=== PATIENT | male | born 1960 | race Caucasian/White ===

== ENCOUNTER → 2016-12-18 | Outpatient (CLI) | payer BC ==
--- NOTE | 2016-12-20 19:57 | SLEEPCENT ---
DATE OF PROCEDURE: 12/18/2016 REFERRING PHYSICIAN: ANNA Rhoades INTERPRETATION: Nocturnal polysomnography was performed for the determination of pressure therapy in this person with presumed mild obstructive sleep apnea with an respiratory event index (YENIFER) of 14.1 with oxygen saturation soren at 79% and average saturation of 89%. There were associated symptoms of excessive daytime sleepiness, insomnia, snoring, observed apnea, and nonrestorative sleep. A total of 6 hours and 47 minutes of data was reviewed with 271 minutes of sleep identified. Sleep latency was 12 minutes. Rapid eye movement (REM) latency was 240 minutes. No slow wave sleep was identified. Sleep efficiency was reduced at 67.8%. EKG showed normal sinus rhythm with an average heart rate of 65 beats per minute. Speeding and slowing was noted surrounding some respiratory events. No epileptiform discharge observed. The patient had been fit with a Respironics ComfortGel nasal petite mask, 4 cm of water then applied to the circuit and the lights were dimmed. Continuous positive airway pressure (CPAP) begun at 4 cm of water pressure, taken to a high of 6. However, he appeared to do best on a pressure of 5. On that pressure, his apnea-hypopnea index (AHI) was 0 and his YENIFER was 2.3. Oxygen saturation soren appeared to be in the 90th percentile. Periodic limb movement index was 14. Supine REM sleep was seen on this pressure with a reasonably good waveform. IMPRESSION: 1. Obstructive sleep apnea, mild, reasonably palliated on CPAP of 5 cm of water pressure. 2. Periodic limb movement, mild. RECOMMENDATIONS: Recommend continuation of CPAP therapy at the above pressure via a petite Respironics ComfortGel nasal mask, the mask of his preference. Clinical correlation will be necessary to ensure eradication of symptoms. [facility]
== END ==
LOC: M SLEEP 19:45
PROVIDERS: ATTEND Internal Medicine Pulmonary Disease
DX: G47.33 Obstructive sleep apnea (adult) (pediatric) (principal); G47.61 Periodic limb movement disorder

== ENCOUNTER 2017-11-16 14:27 | Emergency (ER) | payer BC ==
[2017-11-20 00:06] LABS: Lyme Disease IgG Ab 18 kDa Ban Absent (.); Lyme Disease IgG Ab 23 kDa Ban Absent (.); Lyme Disease IgG Ab 28 kDa Ban Absent (.); Lyme Disease IgG Ab 30 kDa Ban Absent (.); Lyme Disease IgG Ab 39 kDa Ban Absent (.); Lyme Disease IgG Ab 41 kDa Ban Absent (.); Lyme Disease IgG Ab 45 kDa Ban Absent (.); Lyme Disease IgG Ab 58 kDa Ban Absent (.); Lyme Disease IgG Ab 66 kDa Ban Present (.); Lyme Disease IgG Ab 93 kDa Ban Absent (.); Lyme Disease IgG West Blot Int Negative (.); Lyme Disease IgG/IgM Antibodie 1.17 ISR (0.00-0.90); Lyme Disease IgM Ab 23 kDa Ban Absent (.); Lyme Disease IgM Ab 39 kDa Ban Present (.); Lyme Disease IgM Ab 41 kDa Ban Absent (.); Lyme Disease IgM Ab Quantitati 4.05 index (0.00-0.79); Lyme Disease IgM West Blot Int Negative (.)
== END 2017-11-16 18:02 | disposition home or self-care (01) ==
LOC: M ED 14:27
DX: J44.1 Chronic obstructive pulmonary disease with (acute) exacerbation (principal); R53.81 Other malaise; K21.9 Gastro-esophageal reflux disease without esophagitis; F41.9 Anxiety disorder, unspecified; Z79.899 Other long term (current) drug therapy; F17.210 Nicotine dependence, cigarettes, uncomplicated
CPT/HCPCS: 71020

== ENCOUNTER → 2018-01-02 | Outpatient (CLI) | payer BC | LOC: M RAD 10:42 | DX: J44.9 Chronic obstructive pulmonary disease, unspecified (principal); Z87.891 Personal history of nicotine dependence | CPT/HCPCS: G0297 ==

== ENCOUNTER → 2020-03-17 | Outpatient (CLI) | payer BC ==
[~2020-03-17] MED LIST: ALBU83IN; IPRA2IN; LEVA45AE; MULTCAP11 PO; NYST50SS; Nasocort; PRED20TA PO; RANI-397 PO; SIME80TA5 PO; SPIR12.9; SYMBICORT; TAMSULOSIN; VITACAP8 PO; ZYRTEC D
--- NOTE | 2020-03-17 10:44 | REP ---
CT CHEST WITHOUT CONTRAST: LOW-DOSE CANCER SCREENING. HISTORY: Nicotine dependence. Comparison CT studies of the chest are reviewed from January 02, 2018, September 24, 2014, and December 29, 2009. 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 Axial CT images again show severe emphysematous hyperinflation and oligemia in the upper lobes and to a slightly lesser extent, in the lower lobes. This is unchanged in appearance morphologically. No pulmonary mass lesion is appreciated. No significant pulmonary nodule is seen. No endobronchial lesion is appreciated. No pleural or pericardial effusion is seen. There is a chronic area of fibrosis and discoid atelectasis medially in the right middle lobe, unchanged. IMPRESSION: Lung-RADS category 2 findings. Repeat screening chest CT study suggested in 1 year. Electronically Signed by Tru Rico MD 03/17/2020 01:36 P
== END ==
LOC: M RAD 08:39
PROVIDERS: ATTEND Internal Medicine Pulmonary Disease
DX: Z12.2 Encounter for screening for malignant neoplasm of respiratory organs (principal); Z87.891 Personal history of nicotine dependence; J84.10 Pulmonary fibrosis, unspecified; J98.11 Atelectasis

== ENCOUNTER → 2020-10-30 | Outpatient (CLI) | payer SELFPAY ==
[~2020-10-30] MED LIST changes: +SIME80TA12 PO; -SIME80TA5 PO
== END ==
LOC: M LABSMTC 12:48
PROVIDERS: ATTEND Pediatrics
DX: Z20.828 Contact with and (suspected) exposure to other viral communicable diseases (principal)

== ENCOUNTER → 2020-11-12 | Outpatient (REF) | payer BC ==
[~2020-11-12] MED LIST changes: +CARA1TAB6 PO; +CHOL400T PO; +ECOT81TA5 PO; +PANT40TA29 PO; +TAMS1CAP17 PO
[2020-11-12 13:45] LABS: APPEARANCE, URINE CLEAR (CLEAR); BACTERIA, URINE AUTO NEGATIVE (NEGATIVE); BILIRUBIN, URINE AUTO NEGATIVE (NEGATIVE); BLOOD, URINE BLOOD NEGATIVE (NEGATIVE); COLOR, URINE YELLOW (YELLOW); GLUCOSE, URINE (UA) AUTO NEGATIVE (NEGATIVE); KETONE, URINE AUTO NEGATIVE (NEGATIVE); LEUKOCYTE ESTERASE, URINE AUTO NEGATIVE (NEGATIVE); NITRITE, URINE AUTO NEGATIVE (NEGATIVE); PROTEIN, URINE AUTO NEGATIVE (NEGATIVE); RBC, URINE AUTO 0 /HPF (0-3); SPECIFIC GRAVITY URINE AUTO 1.005 (1.002-1.035); SQUAMOUS EPITHELIAL CELL UR AU 0 /HPF (0-6); UROBILINOGEN, URINE AUTO 0.2 mg/dL (0.0-2.0); WBC, URINE AUTO 0 /HPF (0-3)
== END ==
LOC: M SMT 13:31
PROVIDERS: ATTEND Nurse Practitioner Family
DX: N40.1 Benign prostatic hyperplasia with lower urinary tract symptoms (principal)

== ENCOUNTER 2020-11-18 17:54 | Emergency (ER) | payer BC ==
[~2020-11-18] VITALS: Ht 162.6 cm; Wt 51.9 kg
[~2020-11-18 17:54] MED LIST changes: -CARA1TAB6 PO; -CHOL400T PO; -ECOT81TA5 PO; -PANT40TA29 PO; -TAMS1CAP17 PO
[2020-11-18] MEDS ORDERED: CHOL400T PO (18:08)
[2020-11-18] MEDS ORDERED: PANT40TA29 PO (18:08)
[2020-11-18] MEDS ORDERED: ECOT81TA5 PO (18:08)
[2020-11-18] MEDS ORDERED: TAMS1CAP17 PO (18:08)
[2020-11-18 18:51] LABS: BASO # 0.1 10^3/uL (0.0-0.2); BASO % 0.8 % (0.0-1.0); EOS % 0.1 % (0.0-3.0); HEMOGLOBIN 15.5 g/dl (13.5-17.5); LYMPH # 1.5 10^3/uL (1.5-5.0); LYMPH % 19.1 % (24.0-44.0); MEAN CORPUSCULAR HEMOGLOBIN 32.4 pg (27.0-33.0); MEAN CORPUSCULAR HGB CONC 32.3 g/dl (32.0-36.5); MEAN CORPUSCULAR VOLUME 100.2 fl (80.0-96.0); MONO # 0.8 10^3/uL (0.0-0.8); MONO % 10.2 % (0.0-5.0); NEUTROPHILS # 5.4 10^3/uL (1.5-8.5); NEUTROPHILS % 69.4 % (36.0-66.0); PLATELET COUNT, AUTOMATED 330 10^3/uL (150-450); RED BLOOD COUNT 4.79 10^6/uL (4.30-6.10); WHITE BLOOD COUNT 7.8 10^3/uL (4.0-10.0)
[2020-11-18 19:24] LABS: ALBUMIN 3.7 GM/DL (3.2-5.2); ALT/SGPT 22 U/L (12-78); BILIRUBIN,DIRECT 0.2 MG/DL (0.0-0.2); BILIRUBIN,TOTAL 0.5 MG/DL (0.2-1.0); BLOOD UREA NITROGEN 8 MG/DL (7-18); CALCIUM LEVEL 9.3 MG/DL (8.5-10.1); CARBON DIOXIDE LEVEL 33 MEQ/L (21-32); CHLORIDE LEVEL 102 MEQ/L (98-107); CK-MB VALUE MASS 2.5 NG/ML (<3.6); CPK CREATINE PHOSPHOKINASE 109 U/L (39-308); CREATININE FOR GFR 0.76 MG/DL (0.70-1.30); GLOMERULAR FILTRATION RATE > 60.0 (>56); GLUCOSE, FASTING 98 MG/DL (70-100); MB/CK RELATIVE INDEX 2.29 (< OR =4); POTASSIUM SERUM 4.4 MEQ/L (3.5-5.1); SODIUM LEVEL 139 MEQ/L (136-145); TOTAL PROTEIN 7.5 GM/DL (6.4-8.2); TROPONIN I < 0.02 NG/ML (< 0.10)
[2020-11-18] MEDS: GASTROGRAFIN SOLUTION 30ML PO SCH ×2 (19:34→20:01)
--- NOTE | 2020-11-18 19:47 | REP ---
INDICATION: DYSPNEA/COUGH. COMPARISON: Comparison chest x-ray November 16, 2017. TECHNIQUE: Portable upright AP chest radiograph. FINDINGS: The lungs are hyperinflated with emphysematous changes in the upper lobes bilaterally consistent with COPD. Interstitial markings are very slightly prominent in the bases. These findings are unchanged. The heart is not enlarged. Monitoring electrodes are seen. Pulmonary vasculature is not increased.. Six no significant bony abnormality is seen. IMPRESSION: Evidence of COPD with hyperinflation and emphysematous changes in the upper lobes. No acute infiltrate.. <Electronically signed by Mehrdad Rico > 11/18/20 434
[2020-11-18] MEDS ORDERED: ISOVUE-370 76% 100ML VIAL As Ordered ONE (20:26)
--- NOTE | 2020-11-18 21:27 | REPVR ---
PROCEDURE INFORMATION: Exam: CT Abdomen and Pelvis with Contrast Exam date and time: 11/18/20 (8:27pm) Age: 60 years old Clinical indication: Epigastric pain TECHNIQUE: Imaging protocol: Computed tomography of the abdomen and pelvis with intravenous contrast. Radiation optimization: All CT scans at this facility use at least one of these dose optimization techniques: automated exposure control; mA and/or kV adjustment per patient size (includes targeted exams where dose is matched to clinical indication); or iterative reconstruction. Contrast material: Isovue 370 Contrast volume: 100 ml Contrast route: IV COMPARISON: No relevant prior studies available FINDINGS: Lower lung roldan: Emphysematous lung changes. No basilar infiltrates. No pleural effusions. Liver: Normal. No solid mass. Gallbladder and bile ducts: Normal. No calcified stones. No ductal dilatation. Pancreas: Normal. No ductal dilatation. Spleen: Normal. No splenomegaly. Adrenal glands: Normal. No mass. Kidneys and ureters: Normal. No hydronephrosis. Stomach and bowel: Findings in the left mid abdomen compatible with a non-obstructing small bowel (probably jejeunal) intussusception. A 'bull's eye' appearance of small bowel is noted (Ser. 201 - Image #45). Much fecal matter in the colon (especially from the cecum to the splenic flexure). Appendix: No evidence of appendicitis. Intraperitoneal space: Unremarkable. No free air. No significant fluid collection. Vasculature: Unremarkable. No abdominal aortic aneurysm. Lymph nodes: Unremarkable. No enlarged lymph nodes. Urinary bladder: Distended urinary bladder. No stones nor mass. Reproductive: Enlarged prostate gland. Bones/joints: Unremarkable. No acute fracture. Soft tissues: Paucity of fat in the abdomen and pelvis. IMPRESSION: Suspect a non-obstructing jejunal intussusception, in the left mid abdomen. No abscess. No free air. Much fecal matter in the colon -- perhaps an element of constipation, eg. Electronically signed by: Jael Santillan On 11/18/2020 21:27:10 PM
[2020-11-18] MEDS ORDERED: CARA1TAB6 PO (22:01)
[2020-11-18 23:15] VITALS: BP 123/66
--- NOTE | 2020-11-20 06:59 | ED PDOC ---
Post-Departure Follow-Up radiology rpeort faxed to Mariajose Tavares MD Nov 20, 2020 06:58
--- NOTE | 2020-11-20 13:06 | ECGEPIP ---
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
== END 2020-11-18 23:25 | disposition home or self-care (01) ==
LOC: M ED 17:54
DX: K27.9 Peptic ulcer, site unspecified, unspecified as acute or chronic, without hemorrhage or perforation (principal); J45.909 Unspecified asthma, uncomplicated; J44.9 Chronic obstructive pulmonary disease, unspecified; K21.9 Gastro-esophageal reflux disease without esophagitis; F32.9 Major depressive disorder, single episode, unspecified; F41.9 Anxiety disorder, unspecified; K44.9 Diaphragmatic hernia without obstruction or gangrene; Z87.891 Personal history of nicotine dependence; Z79.899 Other long term (current) drug therapy
CPT/HCPCS: 71045; 74177; 80048; 80076; 82550; 82553; 84484; 85025; 93005; 93041; 94760; 99285; Q9963; Q9967

== ENCOUNTER 2020-12-19 11:20 | Emergency (ER) | payer BC ==
[~2020-12-19] VITALS: Ht 162.6 cm; Wt 50.5 kg
[~2020-12-19 11:20] MED LIST changes: +CARA1TAB6 PO; +CHOL400T PO; +ECOT81TA5 PO; +PANT40TA29 PO; +TAMS1CAP17 PO
--- OUTSIDE RECORDS SUMMARY | 2020-12-19 11:33 | CCD | Continuity of Care Document ---
Author Author Toni JAIME PA-C Organization Unknown Address [address] [place] [address] Phone [phone] Care Team Providers Care Disulfurizer Tender Name Role Phone [facility] AUTM Rosmery Jaime PA-C AUTM [phone] Jigar Mota MD AUTM Herminio Abel MD AUTM [phone] [facility] Urology AUTM [phone] Problems Active Problems Provider Date Obstructive sleep apnea syndrome ARMEN Toro Onset: 04/09/2019 Tobacco user ARMEN Toro Onset: 04/09/2019 Chronic obstructive lung disease ARMEN Toro Onset: 04/09/2019 Social History Type Date Description Comments Sex Unknown Tobacco Use Start: Unknown Current Cigar Smoker 1 Daily ETOH Use Denies alcohol use Recreational Drug Use Denies Drug Use Tobacco Use Start: Unknown End: Unknown Patient is a former smoker quit Smoking Status Reviewed: 12/22/18 Patient is a former smoker qu it Allergies, Adverse Reactions, Alerts Active Allergies Reaction Severity Comments Date NKDA 01/15/2019 NKFA 02/12/2019 NKEA 02/12/2019 Medications Active Medications SIG Qnty Indications Ordering Provide r Date Pepcid 20mg Tablets 1 by mouth twice a day as needed gerd 180tabs Jose Manuel Hightower MD 10/06/2020 Vitamin D3 Ultra Potency 1.25mg (33275 Ut) Tablets 1 tab by mouth every week 12tabs Jose Manuel Hightower MD 07/04/2020 Patient Unable To Tolerate Cpap, Please Evaluate Jose Manuel Hightower MD 08/03/2019 Pantoprazole Sodium 40mg Tablets D R 1 by mouth every day 30tabs Jose Manuel Hightower MD 07/30/2019 Nebulizer Kit/Tubing/Mouthpiece K it use with neb tx every 4-6 hours as needed. dx j44.1 4units Jose Manuel Hightower MD 04/09/2019 Nebulizer Device use every 4-6 hours as needed for wheezing and/or shortness of breath 1units J44.9 H archris Hightower MD 04/09/2019 Simvastatin 20mg Tablets Take 1 Tablet By Mouth Every Day 90tabs E78.5 Jose Manuel Hightower MD 02/12/2019 Tamsulosin HCL 0.4mg Capsules 1 tab by mouth every day 90caps Debra Lane ANP-BC, PNP 00 Apple Cider Vinegar Tablets Unknown Levalbuterol Tartrate 45mcg/Act Ae rosol Inl 2 PFS PO Q 4 H prn Unknown 0 Stiolto Respimat 2.5-2.5mcg/Act Ae rosol Inl 2 PFS PO qd Unknown Budesonide 1mg/2ML Suspension Inhale Contents Of 2 Vials [address] Nebulizer Twice A Day Un known Aspirin [address] 1 by mouth every day Unknown Clotrimazole 10mg Vesta Unknown Sucralfate 1gm Tablets Take 1 Tablet By Mouth Four Times Daily For 4 Weeks 360tabs Jose Manuel celestin MD Immunizations Description No Information Available Vital Signs Date Vital Result Comment 10/06/2020 9:27am BP Systolic 122 mmHg BP Diastolic 80 mmHg Heart Rate 100 /min Body Temperature 97.1 F Respiratory Rate 16 /min O2 % BldC Oximetry 96 % Weight 113.25 lb Weight 51.370 kg Height 64 inches 5'4" BMI (Body Mass Index) 19.4 kg/m2 BSA (Body Surface Area) 1.54 m2 06/30/2020 8:54am BP Systolic 112 mmHg BP Diastolic 64 mmHg Heart Rate 90 /min Body Temperature 97.2 F Respiratory Rate 16 /min O2 % BldC Oximetry 95 % Weight 106.38 lb Weight 48.252 kg Height 64 inches 5'4" BMI (Body Mass Index) 18.3 kg/m2 BSA (Body Surface Area) 1.50 m2 Results Test Acquired Date Facility Test Result H/L Range Note CBC With Differential 11/18/2020 [facility] White Blood Count 7.8 10 Normal 4.0-10.0 Red Blood Count 4.79 10 Normal 4.30-6.10 Hemoglobin 15.5 g/dL Normal 13.5-17.5 Hematocrit 48.0 % Normal 42.0-52.0 Mean Corpuscular Volume 100.2 fl High 80.0-96.0 Mean Corpuscular Hemoglobin 32.4 pg Normal 27.0-33.0 Mean Corpuscular HGB Conc 32.3 g/dL Normal 32.0-36.5 Red Cell Distribution Width 12.9 % Normal 11.5-14.5 Platelet Count, Automated 330 10 Normal 150-450 Neutrophils % 69.4 % High 36.0-66.0 Lymph % 19.1 % Low 24.0-44.0 [place] % 10.2 % High 0.0-5.0 Eos % 0.1 % Normal 0.0-3.0 Baso % 0.8 % Normal 0.0-1.0 Immature Granulocyte % 0.4 % Normal 0-3.0 Nucleated Red Blood Cell % 0.0 % Normal 0-0 Neutrophils # 5.4 10 Normal 1.5-8.5 Lymph # 1.5 10 Normal 1.5-5.0 [place] # 0.8 10 Normal 0.0-0.8 Eos # 0.0 10 Normal 0.0-0.5 Baso # 0.1 10 Normal 0.0-0.2 Cardiac Marker Panel 11/18/2020 [facility] CPK Creatine Phosphokinase 109 U/L Normal 39-308 CK-MB Value Mass 2.5 NG/ML Normal <3.6 MB/CK Relative Index 2.29 Normal < Or =4 1 Troponin I < 0.02 NG/ML Normal < 0.10 2 Liver Profile 11/18/2020 [facility] Ast/Sgot 20 U/L Normal 7-37 Alt/SGPT 22 U/L Normal 12-78 Alkaline Phosphatase 121 U/L High 45-117 Bilirubin,Total 0.5 mg/dL Normal 0.2-1.0 Bilirubin,Direct 0.2 mg/dL Normal 0.0-0.2 Total Protein 7.5 GM/DL Normal 6.4-8.2 Albumin 3.7 GM/DL Normal 3.2-5.2 Albumin/Globulin Ratio 1.0 Normal Basic Metabolic Profile 11/18/2020 [facility] Glucose, Fasting 98 mg/dL Normal 70-100 Blood Urea Nitrogen 8 mg/dL Normal 7-18 Creatinine For GFR 0.76 mg/dL Normal 0.70-1.30 Glomerular Filtration Rate > 60.0 Normal >56 3 Sodium Level 139 mEq/L Normal 136-145 Potassium Serum 4.4 mEq/L Normal 3.5-5.1 Chloride Level 102 mEq/L Normal 98-107 Carbon Dioxide Level 33 mEq/L High 21-32 Anion Gap 4 mEq/L Low 8-16 Calcium Level 9.3 mg/dL Normal 8.5-10.1 Coronavirus 2019 ([facility]) 10/30/2020 [facility] Coronavirus 2019 ([facility]) <SEE NOTE> 4 Lab - Unable To Process Specimen 06/30/2020 [facility] Lab - Specimen Rejec (SEE NOTE) 5 Test(s) Ordered FOLIC ACID RBC Rejection Reason QNS 6 Laboratory test finding 06/30/2020 [facility] l Hgba1c 6.0 % 4.4 - 6.1 7 CBC W/Automated Diff 06/30/2020 [facility] CBC W/Automated Diff (SEE NOTE) 8 WBC 6.7 10^3/uL 4.2 - 11.0 RBC 5.00 10^6/uL 4.50 - 6.30 Hemoglobin 16.6 g/dL High 14.0 - 16.0 Hematocrit 49.7 % 41.0 - 51.0 MCV 99.4 fL High 80.0 - 94.0 MCH 33.2 pg 27.0 - 34.0 MCHC 33.4 g/dL 31.0 - 36.0 RDW 13.3 % 11.5 - 14.8 Platelets 279 10^3/uL 150 - 450 MPV 8.8 fL 7.4 - 10.4 Neut 69.6 % 37.0 - 80.0 Lymph 18.4 % Low 25.0 - 40.0 [place] 8.8 % High 3.0 - 8.0 Eos 2.1 % 0.0 - 7.0 Baso 1.0 % 0.0 - 2.0 %Ig 0.1 % High 0.0 - 0.0 %NRBC 0.0 % 0.0 - 0.0 #Neut 4.64 10^3/uL 2.00 - 6.90 #Lymph 1.23 10^3/uL 0.60 - 3.40 #[place] 0.59 10^3/uL 0.00 - 0.90 #Eos 0.14 10^3/uL 0.00 - 0.70 #Baso 0.07 10^3/uL 0.00 - 0.20 #Ig 0.01 10^3/uL 0.00 - 0.10 #NRBC 0.00 10^3/uL 0.00 - 0.00 Manual Diff SEE BELOW Segs 71 % 37 - 80 %Lymph 18 % Low 25 - 40 %[place] 10 % High 3 - 8 %Eos 1 % 0 - 7 RBC Morph MORPH IS NORMAL Comprehensive Metabolic Panel 06/30/2020 [facility] Metabo (SEE NOTE) 9 Sodium 141 mEq/L 134 - 153 Potassium 4.5 mEq/L 3.6 - 5.0 Chloride 100 mEq/L 98 - 107 Co2 28 mEq/L 22 - 30 Glucose 97 mg/dL 65 - 110 BUN 11 mg/dL 7 - 21 Creatinine 0.8 mg/dL 0.7 - 1.5 BUN/Creat 14 8 - 27 Total Protein 7.3 g/dL 6.3 - 8.2 Albumin 4.7 g/dL 3.9 - 5.0 Globulin 2.6 GM/DL 2.4 - 3.2 A/G Ratio 1.8 0.8 - 2.0 Calcium 9.5 mg/dL 8.4 - 10.2 Total Bili 0.7 mg/dL 0.2 - 1.3 Alkaline Phos 117 U/L 38 - 126 Sgot/Ast 27 U/L 5 - 40 SGPT/Alt 25 U/L 7 - 56 Anion Gap 13.0 mmol/L 8.0 - 16.0 Age 60 yrs Non-Aa GFR >60 mL/min Afr Amer GFR >60 mL/min 10 Cve Panel 06/30/2020 [facility] Cve Panel (SEE NOTE) 11 Cholesterol 202 mg/dL High 131 - 200 Triglycerides 88 mg/dL 35 - 160 HDL 69 mg/dL 29 - 86 LDL 117 mg/dL 65 - 175 Risk Factor 2.9 Low 3.4 - 4.9 LDL/HDL 1.70 1.00 - 3.55 12 Laboratory test finding 06/30/2020 [facility] TSH Highly Sensitive 0.89 uIU/mL 0.47 - 5.01 Vitamin D (25-Hydroxy) 23 NG/ML 13 Vitamin B12 Serum 1084 pg/mL 232 - 1245 1 DIAGNOSIS CRITERIA MMB ng/ml Relative Index (RI) NON-AMI < or = 5 N/A TORIBIO ZONE > 5 < or = 4 AMI > 5 > 4 2 Troponin I Reference Interva l for teextee LOCI: 99th Percentile= 0.00-0.045 ng/ml Risk Stratification: <= 0.10 ng/ml Decreased Risk for Adverse Clinical Events. 0.10-1.50 ng/ml Increased Risk for Adv erse Clinical Events. Evaluation of additional criterion and/or repeat testing in 2-6 hours is suggested to rule out myocardial damage. >= 1.50 ng/ml Indicative of Myocardial Injury. 3 Units are mL/min/1.73 m2 Chronic Kidney Disease Staging per NKF: Stage I & II GFR >=60 Normal to Mildly Decreased Stage III GFR 30-59 Moderately Decreased Stage IV GFR 15-29 Severely Decreased Stage V GFR <15 Very Little GFR Left ESRD GFR <15 on GENETIC COUNSELLOR 4 Test: COVID-19 Nasal/Naspharynx Result: NOT DETECTED Reference Units: Not detected Note: Please consider re-collection of a new specimen, if clinically indicated. Note: The COVID-19 assay is under Emergency Use Authorization(EUA) by the U.S. Food and Drug Administration. [facility]Bill is designated as a high complexity laboratory by the Clinical Laboratory Improvement Amendments of 1988(CLIA) and is qualified to perform this test. ASSAY INFORMATION: Real Time RT-PCR 5 Specimen Integrity/Specimen Recollection The patient sample needs to be resubmitted for the following reason: 6 { One or more of th e tests you ordered cannot be performed. { Please recollect, reorder, and resubmit if needed. 7 {A1] {HB] 8 COMPLETE BLOOD COUNT 9 COMPREHENSIVE METABOLIC PANE L 10 Male GFR Interprentation 20-49 yrs >60 mL/min Normal 50-59 yrs >56 mL/min Normal 60-69 yrs >49 mL/min Normal 70-79yrs >42 mL/min Normal 80 and above >35 mL/min Normal Female GFR Interpretation 20-39 yrs >60 mL/min Normal 40-49 yrs >58 mL/min Normal 50-59 yrs >51 mL/min Normal 60-69 yrs >45 mL/min Normal 70-79 yrs >39 mL/min Normal 80 and above >32 mL/min Normal 11 LIPID PANEL 12 CVE RISK CHOL/HDL LDL/HDL MEN: 1/2 AVERAGE 3.43 1.00 AVERAGE 4.97 3.55 2X AVERAGE 9.55 6.25 3X AVERAGE 23.99 7.99 WOMEN: 1/2 AVERAGE 3.27 1.47 AVERAGE 4.44 3.22 2X AVERAGE 7.05 5.03 3X AVERAGE 11.04 6.14 13 VITAMIN-D(25HYDROXY) Deficiency: <=20 ng/ml Insufficiency: 21-29 ng/ml Preferred level: => 30 ng/ml Procedures Description No Information Available Medical Devices Description No Information Available Encounters Description No Information Available Assessments Date Code Description Provider 10/06/2020 G47.33 Obstructive sleep apnea (adult) (pediatric) Rosmery Jaime PA-C 10/06/2020 J44.9 Chronic obstructive pulmonary di sease, unspecified Rosmery Jaime PA-C 10/06/2020 K21.9 Gastro-esophageal reflux disease without esophagitis Rosmery Jaime PA-C 10/06/2020 B37.0 Candidal stomatitis Rosmery Jaime PA-C 06/30/2020 Z00.01 Encounter for genera l adult medical examination with abnormal findings Rosmery Jaime PA-C 06/30/2020 R14.0 Abdominal distension (gaseous) E jesse Jaime PA-C 06/30/2020 G47.33 Obstructive sleep apnea (adult) (pediatric) Rosmery Jaime PA-C 06/30/2020 R23.3 Spontaneous ecchymoses Rosmery hale PA-C 06/30/2020 J44.9 Chronic obstructive pulmonary di sease, unspecified Rosmery Jaime PA-C Plan of Treatment Future Appointment(s):* 01/05/2021 9:00 am - Rosmery Jaime PA-C at [facility] Functional Status Description No Information Available Mental Status Description No Information Available Referrals Refer to Reason for Referral Status Appt Date [facility] Urology 60 year old male with BPH. Please evalua te and treat. Thank you. Patient Notified 11/12/2020 [id number] [facility] [address] [place] [address] [phone] Herminio Abel MD 60 year old male with histor y of weight loss, abdominal discomfort, reflux, excessive bloating, and gas. History of colonic polyps. Last endoscopy/colonoscopy at [facility] 07/19/2016. Please evaluate and treat. Patient Notified 12/16/[address] [address] [phone]
--- OUTSIDE RECORDS SUMMARY | 2020-12-19 11:33 | CCD | Continuity of Care Document ---
Author Author Toni JAIME PA-C Organization Unknown Address [address] [place] [address] Phone [phone] Care Team Providers Care Rate Clerk Name Role Phone [facility] AUTM [phone] [place] [facility] AUTM Rosmery Jaime PA-C AUTM [phone] Jigar Mota MD AUTM [phone] Herminio Abel MD AUTM [phone] [facility] Urology AUTM [phone] Problems Active Problems Provider Date Obstructive sleep [...] MD 10/06/2020 Vitamin D3 Ultra Potency 1.25mg (16829 Ut) Tablets 1 tab by mouth every [...] H/L Range Note CBC With Differential 11/18/2020 [facility] White Blood Count 7.8 10 Normal 4.0-10.0 [...] 36.0-66.0 Lymph % 19.1 % Low 24.0-44.0 [place] % 10.2 % High 0.0-5.0 Eos % 0.1 % Normal 0.0-3.0 Baso % 0.8 % Normal 0.0-1.0 Immature Granulocyte % 0.4 % Normal 0-3.0 Nucleated Red Blood Cell % 0.0 % Normal 0-0 Neutrophils # 5.4 10 Normal 1.5-8.5 Lymph # 1.5 10 Normal 1.5-5.0 [place] # 0.8 10 Normal 0.0-0.8 Eos # 0.0 10 Normal 0.0-0.5 Baso # 0.1 10 Normal 0.0-0.2 Cardiac Marker Panel 11/18/2020 [facility] CPK Creatine Phosphokinase 109 U/L Normal 39-308 CK-MB Value Mass 2.5 NG/ML Normal <3.6 MB/CK Relative Index 2.29 Normal < Or =4 1 Troponin I < 0.02 NG/ML Normal < 0.10 2 Liver Profile 11/18/2020 [facility] Ast/Sgot 20 U/L Normal 7-37 Alt/SGPT 22 U/L Normal 12-78 Alkaline Phosphatase 121 U/L High 45-117 Bilirubin,Total 0.5 mg/dL Normal 0.2-1.0 Bilirubin,Direct 0.2 mg/dL Normal 0.0-0.2 Total Protein 7.5 GM/DL Normal 6.4-8.2 Albumin 3.7 GM/DL Normal 3.2-5.2 Albumin/Globulin Ratio 1.0 Normal Basic Metabolic Profile 11/18/2020 [facility] Glucose, Fasting 98 mg/dL Normal 70-100 Blood [...] Level 9.3 mg/dL Normal 8.5-10.1 Coronavirus 2019 ([facility]) 10/30/2020 [facility] Coronavirus 2019 ([facility]) <SEE NOTE> 4 Laboratory test finding 06/30/2020 [facility] Hgba1c <pending> TSH Highly Sensitive <pending> Vitamin B12 Serum <pending> Vitamin D (25-Hydroxy) <pending> Folic Acid RBC <pending> Lab - Unable To Process Specimen 06/30/2020 [facility] Lab - Specimen Rejec (SEE NOTE) 5 Test(s) Ordered FOLIC ACID RBC Rejection Reason QNS 6 Laboratory test finding 06/30/2020 [facility] l Hgba1c 6.0 % 4.4 - 6.1 7 CBC W/Automated Diff 06/30/2020 [facility] CBC W/Automated Diff (SEE NOTE) 8 WBC [...] Lymph 18.4 % Low 25.0 - 40.0 [place] 8.8 % High 3.0 - 8.0 Eos 2.1 % 0.0 - 7.0 Baso 1.0 % 0.0 - 2.0 %Ig 0.1 % High 0.0 - 0.0 %NRBC 0.0 % 0.0 - 0.0 #Neut 4.64 10^3/uL 2.00 - 6.90 #Lymph 1.23 10^3/uL 0.60 - 3.40 #[place] 0.59 10^3/uL 0.00 - 0.90 #Eos 0.14 10^3/uL 0.00 - 0.70 #Baso 0.07 10^3/uL 0.00 - 0.20 #Ig 0.01 10^3/uL 0.00 - 0.10 #NRBC 0.00 10^3/uL 0.00 - 0.00 Manual Diff SEE BELOW Segs 71 % 37 - 80 %Lymph 18 % Low 25 - 40 %[place] 10 % High 3 - 8 %Eos 1 % 0 - 7 RBC Morph MORPH IS NORMAL Comprehensive Metabolic Panel 06/30/2020 [facility] Comprehensive Metabo (SEE NOTE) 9 Sodium 141 mEq/L [...] GFR >60 mL/min 10 Cve Panel 06/30/2020 [facility] Cve Panel (SEE NOTE) 11 Cholesterol 202 mg/dL High 131 - 200 Triglycerides 88 mg/dL 35 - 160 HDL 69 mg/dL 29 - 86 LDL 117 mg/dL 65 - 175 Risk Factor 2.9 Low 3.4 - 4.9 LDL/HDL 1.70 1.00 - 3.55 12 Laboratory test finding 06/30/2020 [facility] l TSH Highly Sensitive 0.89 uIU/mL 0.47 - 5.01 Vitamin D (25-Hydroxy) 23 NG/ML 13 Vitamin B12 Serum 1084 pg/mL 232 - 1245 1 DIAGNOSIS CRITERIA MMB ng/ml Relative Index (RI) NON-AMI < or = 5 N/A TORIBIO ZONE > 5 < or = 4 AMI > 5 > 4 2 Troponin I Reference Interva l for makerSQR LOCI: 99th Percentile= 0.00-0.045 ng/ml Risk Stratification: [...] Little GFR Left ESRD GFR <15 on FORMAL SERVICE WAITER 4 Test: COVID-19 Nasal/Naspharynx Result: NOT DETECTED Reference Units: Not detected Note: Please consider re-collection of a new specimen, if clinically indicated. Note: The COVID-19 assay is under Emergency Use Authorization(EUA) by the U.S. Food and Drug Administration. [facility] is designated as a high complexity laboratory [...] 9:00 am - Rosmery Jaime PA-C at [facility] Functional Status Description No Information Available Mental Status Description No Information Available Referrals Refer to Reason for Referral Status Appt Date [facility] Urology 60 year old male with BPH. Please evalua te and treat. Thank you. Patient Notified 11/12/2020 [id number] [facility] [address] [place] [address] [phone] Herminio Abel MD 60 year old male with histor y of weight loss, abdominal discomfort, reflux, excessive bloating, and gas. History of colonic polyps. Last endoscopy/colonoscopy at [facility] 07/19/2016. Please evaluate and treat. Patient Notified 12/16/2020 [address] [facility] [address] [place] [address] [phone]
--- OUTSIDE RECORDS SUMMARY | 2020-12-19 11:33 | CCD | Continuity of Care Document ---
Author Author Toni CHAMBERS M.D. Organization Unknown Address [address] [facility] [facility], [address] [place] [address] Phone [phone] Care Team Providers Care Maintenance Journeyman Name Role Phone Lilliam Jin M.D. AUTM [phone] Rosmery Sierra P.A.-C AUTM [phone] Problems Description No Information Available Social History Type Date Description Comments Sex Unknown ETOH Use Denies alcohol use Tobacco Use Start: 11/21/73 End: 11/21/18 Patient is a forme r smoker hx: 1/2- 1ppd x 40 yrs Smoking Status Reviewed: 09/22/20 Patient is a former smoker hx : 1/2-1ppd x 40 yrs Allergies, Adverse Reactions, Alerts Description No Known Drug Allergies Medications Active Medications SIG Qnty Indications Ordering Provide r Date Budesonide 1mg/2ML Suspension 2 vial via nebulizer twice a day 720ml G47.33 Drea Morris M.D. 06/25 Symbicort 160-4.5mcg/Act Aerosol 2 puff twice a day 30.6gm J44.9 Drea Morris M.D. 03/25/2020 Pantoprazole Sodium 40mg Tablets D R take 1 tablet by mouth every day 90tabs K21.9 Drea Morris M.D. 0 07/09/2019 Pepcid 40mg Tablets 1tab po q d Unknown Charcoal 200mg Capsules 1cap po bid Unknown Nasal [place] 12 Hour 0.05% Solution use as directed Unknown Super B Complex Maxi Tablets 1 tab by mouth every day Unknown Aspirin [address] take 1 tab by mouth daily Unknown Vitamin D3 25mcg (1000 Ut) Capsule s 1 tab by mouth every day Unknown Tamsulosin HCL 0.4mg Capsules 1 tab by mouth every day Unknown Simvastatin 20mg Tablets 1 by mouth every day Unknown Clotrimazole 10mg Vesta 1 tab by mouth every 6 hours as needed for thrush 30units Dakota Morris M.D. Multi Vitamin Mens Tablets 1 by mouth every day Unknown CPAP +5 [place]-----Non Compliant Unknown Acapella Misc use twi ce a day with nebs Unknown Mucinex Sinus-Max Day/Night Misc 1 by mouth once a day Unknown Xopenex HFA 45mcg/Act Aerosol 2 puffs every 4 hours as needed Unknown 00 Ipratropium [place]/Albuterol Sulfate 0.5-2.5(3)mg/3ML Solution use 1 vial via nebulizer four times daily as needed 1080ml J44.9 Drea Morris M.D. History Medications Prednisone 10mg Tablets 4 tabs by mouth daily for 3 days, then 3 tabs daily for 3 days, then 2 tabs daily for 3 days then 1 tab daily for 3 days 30tabs J44.1 Drea Morris M.D. 09/22/2020 - 10/14/2020 Stiolto Respimat 2.5-2.5mcg/Act Ae rosol 2 puffs once daily 12gm Drea Morris M.D. 06/26/2020 - 10/28/2020 Perforomist 20mcg/2ML Nebulizer 1 vial via neb twice a day (can mix with budesonide) 360ml J44.9 Drea Morris M.D. 06/25/2020 - 06/25/2020 Brovana 15mcg/2ML Nebulizer 1 vial nebulized twice a day 360ml Drea Morris M.D. 06/25 - 06/26/2020 Immunizations Description No Information Available Vital Signs Date Vital Result Comment 12/01/2020 10:27am BP Systolic 128 mmHg BP Diastolic 68 mmHg Height 64 inches 5'4" Weight 109.00 lb BMI (Body Mass Index) 18.7 kg/m2 [place] Body Weight 130 lb Weight 49.442 kg BSA (Body Surface Area) 1.51 m2 09/22/2020 3:22pm BP Systolic 122 mmHg BP Diastolic 74 mmHg Heart Rate 96 /min O2 % BldC Oximetry 93 % Body Temperature 99.1 F Height 64 inches 5'4" Weight 113.25 lb BMI (Body Mass Index) 19.4 kg/m2 [place] Body Weight 130 lb Weight 51.370 kg BSA (Body Surface Area) 1.54 m2 Results Description No Information Available Procedures Date Code Description Status 09/22/2020 09694 Spirometry Completed 06/25/2020 37183 Spirometry Completed Medical Devices Description No Information Available Encounters Type Date Location Provider Dx Diagnosis Office Visit 09/22/2020 3:30p [facility] Drea Portillo M.D. G47.33 Obstructive sleep apnea (judie lt) (pediatric) J30.9 Allergic rhinitis, unspecifi ed K21.9 Gastro-esophageal reflux dis ease without esophagitis J44.1 Chronic obstructive pulmonar y disease w (acute) exacerbation Z87.891 Personal history of nicotine dependence Office Visit 06/25/2020 1:00p [facility] Drea Portillo M.D. J44.9 Chronic obstructive pulmonar y disease, unspecified G47.33 Obstructive sleep apnea (judie lt) (pediatric) J30.9 Allergic rhinitis, unspecifi ed Assessments Date Code Description Provider 09/22/2020 G47.33 Obstructive sleep apnea (adult) (pediatric) Drea Morris M.D. 09/22/2020 J30.9 Allergic rhinitis, unspecified Drea Portillo M.D. 09/22/2020 K21.9 Gastro-esophageal reflux disease without esophagitis Drea Morris M.D. 09/22/2020 J44.1 Chronic obstructive pulmonary disease with (acute) exacerbation Drea Morris M.D. 09/22/2020 Z87.891 Personal history of nicotine dep endence Drea Morris M.D. 06/25/2020 J44.9 Chronic obstructive pulmonary di sease, unspecified Drea Morris M.D. 06/25/2020 G47.33 Obstructive sleep apnea (adult) (pediatric) Drea Morris M.D. 06/25/2020 J30.9 Allergic rhinitis, unspecified K Drea nieto M.D. Plan of Treatment Future Appointment(s):* 03/30/2021 3:30 pm - Drea Morris M.D. at [facility] 12/01/2020 - Yong Chambers M.D.* * Recommendations:* -- continiue pepcid, Suclrafate, - metamucil -- EGD colon. -- Follow up in [facility] after that. Functional Status Functional Condition Comment Date Status Independent with all ADL's Activ e Independent with all IADL's Acti ve Mental Status Mental Condition Comment Date Status Cognitive ability not impaired A ctive Referrals Refer to Dr Reason for Referral Status Appt Date Yong Chambers M.D. hx weight loss, adb discomf ort, reflux, excessive bloating, gas, hx colon polyps Created 12/16/[address] [place] [address], [address] [place] [address] [phone]
--- OUTSIDE RECORDS SUMMARY | 2020-12-19 11:34 | CCD ---
Author Author [facility] Organization [facility] Address Unknown Phone Unavailable Care Team Providers Care Business Control Manager Name Role Phone Benny Glaser Unavailable Unavailable MolluraBenny PA Unavailable Unavailable Mollura, E Migdalia PA Unavailable Unavailable Mollura, E Migdalia PA Unavailable Unavailable Mollura, E Migdalia PA Unavailable Unavailable Mollura, Benny Negron PA Unavailable Unavailable Mollura, Benny Negron PA Unavailable Unavailable Mollura, E Migdalia PA Unavailable Unavailable Mollura, E Migdalia PA Unavailable Unavailable Mollura, E Migdalia PA Unavailable Unavailable Mollura, E Migdalia PA Unavailable Unavailable Mollura, E Migdalia PA Unavailable Unavailable Mollura, E Migdalia PA Unavailable Unavailable Mollura E Migdalia PA Unavailable Unavailable Mollura E Migdalia PA Unavailable Unavailable Mollura, E Migdalia PA Unavailable Unavailable Mollura, E Migdalia PA Unavailable Unavailable Mollura, E Migdalia PA Unavailable Unavailable Mollura, E Migdalia PA Unavailable Unavailable Mollura, E Migdalia PA Unavailable Unavailable Mollura, E Migdalia PA Unavailable Unavailable Mollura, E Migdalia PA Unavailable Unavailable Mollura, E Migdalia PA Unavailable Unavailable Mollura, E Migdalia PA Unavailable Unavailable Mollura, E Migdalia PA Unavailable Unavailable Mollura, E Migdalia PA Unavailable Unavailable Mollura, E Migdalia PA Unavailable Unavailable Mollura, E Migdalia PA Unavailable Unavailable Mollura, E Migdalia PA Unavailable Unavailable Mollura, E Migdalia PA Unavailable Unavailable Mollura, E Migdalia PA Unavailable Unavailable Mollura, E Migdalia PA Unavailable Unavailable Mollura, E Migdalia PA Unavailable Unavailable Mollura, E Migdalia PA Unavailable Unavailable Mollura, E Migdalia PA Unavailable Unavailable Mollura, E Migdalia PA Unavailable Unavailable Drea Morris MD Unavailable Unavailable Drea Morris MD Unavailable Unavailable Drea Morris MD Unavailable Unavailable Drea Morris MD Unavailable Unavailable Drea Morris MD Unavailable Unavailable Drea Morris MD Unavailable Unavailable Drea Morris MD Unavailable Unavailable Drea Morris MD Unavailable Unavailable Drea Morris MD Unavailable Unavailable Drea Morris MD Unavailable Unavailable Drea Morris MD Unavailable Unavailable Drea Morris MD Unavailable Unavailable Drea Morris MD Unavailable Unavailable Drea Morris MD Unavailable Unavailable Drea Morris MD Unavailable Unavailable Drea Morris MD Unavailable Unavailable Drea Morris MD Unavailable Unavailable Drea Morris MD Unavailable Unavailable Drea Morris MD Unavailable Unavailable Drea Morris MD Unavailable Unavailable Drea Morris MD Unavailable Unavailable Drea Morris MD Unavailable Unavailable Drea Morris MD Unavailable Unavailable Drea Morris MD Unavailable Unavailable Sierra, M Rosmery PA-C Unavailable Unavailable Sierra, M Rosmery PA-C Unavailable Unavailable Sierra, M Rosmery PA-C Unavailable Unavailable Sierra, M Rosmery PA-C Unavailable Unavailable Sierra, M Rosmery PA-C Unavailable Unavailable Sierra, M Rosmery PA-C Unavailable Unavailable Sierra, M Rosmery PA-C Unavailable Unavailable Sierra, M Rosmery PA-C Unavailable Unavailable Sierra, M Rosmery PA-C Unavailable Unavailable Sierra, M Rosmery PA-C Unavailable Unavailable Sierra, M Rosmery PA-C Unavailable Unavailable Sierra, M Rosmery PA-C Unavailable Unavailable Sierra, M Rosmery PA-C Unavailable Unavailable Sierra, M Rosmery PA-C Unavailable Unavailable Sierra, M Rosmery PA-C Unavailable Unavailable Sierra, M Rosmery PA-C Unavailable Unavailable Sierra, M Rosmery PA-C Unavailable Unavailable Sierra, M Rosmery PA-C Unavailable Unavailable Sierra, M Rosmery PA-C Unavailable Unavailable Sierra, M Rosmery PA-C Unavailable Unavailable Sierra, M Rosmery PA-C Unavailable Unavailable Sierra, M Rosmery PA-C Unavailable Unavailable Sierra, M Rosmery PA-C Unavailable Unavailable Sierra, M Rosmery PA-C Unavailable Unavailable Sierra, M Rosmery PA-C Unavailable Unavailable Sierra, M Rosmery PA-C Unavailable Unavailable Sierra, M Rosmery PA-C Unavailable Unavailable Sierra, M Rosmery PA-C Unavailable Unavailable Sierra, M Rosmery PA-C Unavailable Unavailable Sierra, M Rosmery PA-C Unavailable Unavailable Sierra, M Rosmery PA-C Unavailable Unavailable Sierra, M Rosmery PA-C Unavailable Unavailable Re-disclosure Warning The records that you are about to access may contain information from federally-assisted alcohol or drug abuse programs. If such information is present, then the following federally mandated warning applies: This information has been disclosed to you from records protected by federal confidentiality rules (42 CFR part 2). The federal rules prohibit you from making any further disclosure of this information unless further disclosure is expressly permitted by the written consent of the person to whom it pertains or as otherwise permitted by 42 CFR part 2. A general authorization for the release of medical or other information is NOT sufficient for this purpose. The Federal rules restrict any use of the information to criminally investigate or prosecute any alcohol or drug abuse patient.The records that you are about to access may contain highly sensitive health information, the redisclosure of which is protected by Article 27-F of the [facility] Public Health law. If you continue you may have access to information: Regarding HIV / AIDS; Provided by facilities licensed or operated by the [facility] Office of Mental Health; or Provided by the [facility] Office for People With Developmental Disabilities. If such information is present, then the following [facility] mandated warning applies: This information has been disclosed to you from confidential records which are protected by state law. State law prohibits you from making any further disclosure of this information without the specific written consent of the person to whom it pertains, or as otherwise permitted by law. Any unauthorized further disclosure in violation of state law may result in a fine or snf sentence or both. A general authorization for the release of medical or other information is NOT sufficient authorization for further disc losure. Family History Family Member Name Family Member Gender Family Member Status Date o f Status Description Data Source(s) Unknown Male Problem [facility] ([facility]) Unknown Male Problem [facility] ([facility]) Unknown Unknown Problem [facility] ([facility]) Unknown Female Problem [facility] ([facility]) Encounters Encounter Providers Location Date Indications Data Source(s ) [place] [address] [address] 11/12/2020 12:00:00 AM EST eCW1 ([facility]) Outpatient Attender: Rosmery AYERS-CConsultant: Migdalia AYERS 10/06/2020 08:53:00 AM EST - 10/06/2020 08:53:00 AM EST [facility] Outpatient Attender: Drea Geronimo/Jacob/Gurdeep/Dakota ndl 09/22/2020 02:30:00 PM EST [facility] Outpatient Attender: Rosmery PÉREZCConsultant: Migdalia AYERS 06/30/2020 08:40:00 AM EDT - 06/30/2020 08:40:00 AM EDT [facility] Outpatient Attender: Drea Geronimo/Jacob/Gurdeep/Dakota ndl 06/25/2020 01:00:00 PM EDT MEDENT ([facility], ) Medications Medication Brand Name Start Date Product Form Dose Route Admi nistrative Instructions Pharmacy Instructions Status Indications Reaction Description Data Source(s) Sulfamethoxazole 800 MG / Trimethoprim 1 60 MG Oral Tablet Sulfamethoxazole- Trimethoprim 800-160 MG Sulfamethoxazole-Trimethoprim 800-160 MG 11/12/2020 12:00:00 AM EST active Sulfamet hoxazole-Trimethoprim 800-160 MG eCW1 ([facility]) Famotidine 20 MG Oral Tablet [Pepcid] Pepcid 10/06/2020 12:00:00 AM EST ORAL active MEDENT ([facility]) Prednisone 10 MG Oral Tablet Prednisone 09/22/2020 12:00:00 AM EST ORAL completed MEDENT ([facility], ) Cholecalciferol 18902 UNT Oral Tablet Vitamin D3 Ultra Poten cy 07/04/2020 12:00:00 AM EDT ORAL active M EDENT ([facility]) Stiolto Respimat Stiolto Respimat 06/26/2020 12:00:00 AM EDT RESPIRATORY completed MEDENT ([facility], ) formoterol fumarate 0.01 MG/ML Inhalant Solution [Perforomis t] Perforomist 06/25/2020 12:00:00 AM EDT completed MEDENT ([facility], ) Budesonide 0.5 MG/ML Inhalant Solution Budesonide 06/25/2020 12:0 0:00 AM EDT active MEDENT ([facility]) arformoterol 0.0075 MG/ML Inhalant Solution [Brovana] Brovan a 06/25/2020 12:00:00 AM EDT completed MEDENT ([facility]) 60 ACTUAT Budesonide 0.16 MG/ACTUAT / fo rmoterol fumarate 0.0045 MG/ACTUAT Metered Dose Inhaler [Symbicort] Symbicort 03/25/2020 12:00:00 AM EDT RESPIRATORY active MEDENT ( [facility]) Spiriva Respimat Spiriva Respimat 03/25/2020 12:00:00 AM EDT RESPIRATORY active MEDENT ([facility]) Insurance Providers Payer name Policy type / Coverage type Policy ID Covered libertarian ID Covered libertarian's relationship to jain Policy Jain Plan Information [facility] FED[employer]OYEE PROGRAM [id number] SP [id number] [facility] FED[employer]OYEE PROGRAM [id number] SP [id number] SELF PAY ONLY [id number] SP [id number] [employer] F[employer] BS [id number] [employer] Commercial [id number] Self [id number] [facility] FEDERAL O/P [id number] 18 [id number] [employer] Commercial [id number] Self [id number] [employer] C [id number] Self [id number] [employer] F[employer] Commercial [id number] Self [id number] [facility] FEDERAL -PHYS [id number] 18 [id number] [facility] Federal Commercial [id number] Self [id number] Federal Commercial [id number] Self [id number] [employer] Fep Commercial [id number] Self [id number] [employer] Fep Commercial [id number] Self [id number] [employer] F[employer] Commercial [id number] Self [id number] BCBS Federal Plan Commercial [id number] Self [id number] [employer] FEDERAL [id number] SP [id number] [employer] FEDERAL [id number] SP [id number] BS Federal Commercial Self BC BS [place] FEDERAL P [id number] S [id number] BC/BS OF [place] P [id number] S [id number] Problems, Conditions, and Diagnoses Code Display Name Description Problem Type Effective Dates Data Source(s) B370 Candidal stomatitis Candidal stomatitis Diagnosis 1 12/06/2019 08:53:00 AM [facility] K219 Gastro-esophageal reflux disease without esophagitis Gastro-esophageal reflux disease without esophagitis Diagnosis 10/06/2020 08:53:[address] [facility] J449 Chronic obstructive pulmonary disease, u nspecified Chronic obstructive pulmonary disease, unspecified Diagnosis 10/06/2020 08:53:00 AM [facility] G4733 Obstructive sleep apnea (adult) (pediatr ic) Obstructive sleep apnea (adult) (pediatric) Diagnosis 10/06/2020 08:53:00 AM [facility] Z0001 Encounter for general adult medical exam ination with abnormal findings Encounter for general adult medical examination with abnormal findings Diagnosis 06/30/2020 08:40:00 AM EDT [facility] R233 Spontaneous ecchymoses Spontaneous ecchymoses Diagnosi s 06/30/2020 08:40:00 AM EDT [facility] R140 Abdominal distension (gaseous) Abdominal distension (g aseous) Diagnosis 06/30/2020 08:40:00 AM EDT [facility] Surgeries/Procedures Procedure Description Date Indications Data Source(s) Spirometry 09/22/2020 12:00:00 AM EST Vidal RYAN ([facility], ) Spirometry 06/25/2020 12:00:00 AM EDT Vidal RYAN ([facility], ) Results ID Date Data Source [id number] 11/18/2020 06:37:00 PM EST MEDMAYA ([facility]) Name Value Range Interpretation Code Description Data Flakita rce(s) Supporting Document(s) Glucose, Fasting 98 mg/dL 70-100 Normal (applies to non-numeric results) MEDENT ([facility]) Creatinine For GFR 0.76 mg/dL 0.70-1.30 Normal (applies to non -numeric results) [facility] ([facility]) Blood Urea Nitrogen 8 mg/dL 7-18 Normal (applies to non-nume phylicia results) [facility] ([facility]) Potassium Serum 4.4 meq/L 3.5-5.1 Normal (applies to non-numeric results) [facility] ([facility]) Glomerular Filtration Rate Laboratory test result Normal (applies to non- numeric results) [facility] ([facility]) <content>Units are mL/min/1.73 m2</content>
<content></content>
<content>Chronic Kidney Disease Staging per NKF:</content>
<content></content>
<content>Stage I & II GFR >=60 Normal to Mildly Decreased</content>
<content>Stage III GFR 30- 59 Moderately Decreased</content>
<content>Stage IV GFR 15-29 Severely Decreased</content>
<content>Stage V GFR <15 Very Little GFR Left</content>
<content>ESRD GFR <15 on CHIEF DIETITIAN</content>
<content></content> Sodium Level 139 meq/L 136-145 Normal (applies to non-numeric res ults) MED[facility] ([facility]) Anion Gap 4 meq/L 8-16 Below low normal MEDENT ( [facility]) Carbon Dioxide Level 33 meq/L 21-32 Above high normal MED[facility] ([facility]) Chloride Level 102 meq/L 98-107 Normal (applies to non-numeric r esults) [facility] ([facility]) Calcium Level 9.3 mg/dL 8.5-10.1 Normal (applies to non-numeric re sults) [facility] ([facility]) ID Date Data Source [id number] 11/18/2020 06:37:00 PM EST MEDENT ([facility]) Name Value Range Interpretation Code Description Data Flakita e(s) Supporting Document(s) Alt/SGPT 22 U/L 12-78 Normal (applies to non-numeric resul ts) MED[facility] ([facility]) Ast/Sgot 20 U/L 7-37 Normal (applies to non-numeric resul ts) [facility]) Bilirubin,Direct 0.2 mg/dL 0.0-0.2 Normal (applies to non-numeric results) [facility]) Bilirubin,Total 0.5 mg/dL 0.2-1.0 Normal (applies to non-numeric results) [facility]) Alkaline Phosphatase 121 U/L 45-117 Above high normal [facility] Albumin/Globulin Ratio 1.0 Normal (applies to non-n umeric results) [facility] ([facility]) Total Protein 7.5 GM/DL 6.4-8.2 Normal (applies to non-numeric re sults) [facility]) Albumin 3.7 GM/DL 3.2-5.2 Normal (applies to non-numeric resul ts) [facility]) ID Date Data Source [id number] 11/18/2020 06:37:00 PM EST [facility] ([facility]) Name Value Range Interpretation Code Description Data [facility](s) Supporting Document(s) CPK Creatine Phosphokinase 109 U/L 39-308 [place] (applies to non-numeric results) [facility]) CK-MB Value Mass 2.5 ng/mL Normal (applies to non-numeric results) [facility] ([facility]) MB/CK Relative Index 2.29 Normal (applies to non-num nancy results) [facility]) <content>DIAGNOSIS CRITERIA</content>
<content>MMB ng/ml Relative Index (RI)</content>
<content>NON-AMI < or = 5 N/A</content>
<content>TORIBIO ZONE > 5 < or = 4</content>
<content>AMI > 5 > 4</content>
<content></content> Troponin I Laboratory test result Normal (applies to non-n umeric results) [facility]) <content>Troponin I Reference Interval f or Siemens [place] LOCI:</content>
<content></content>
<content>99th Percentile= 0.00-0.045 ng/ml</content>
<content></content>
<content>Risk Stratification:</content>
<content><= 0.10 ng/ml Decreased Risk for Adverse Clinical</content>
<content>Events.</content>
<content>0.10-1.50 ng/ml Increased Risk for Adverse Clinical</content>
<content>Events. Evaluation of additional</content>
<content>criterion and/or repeat testing in 2-6</content>
<content>hours is suggested to rule out myocardial</content>
<content>damage.</content>
<content>>= 1.50 ng/ml Indicative of Myocardial Injury.</content>
<content></content> ID Date Data Source [id number] 11/18/2020 06:37:00 PM EST [facility] ([facility]) Name Value Range Interpretation Code Description Data Flakita rce(s) Supporting Document(s) Hemoglobin 15.5 g/dL 13.5-17.5 Normal (applies to non-numeric resul ts) [facility] ([facility]) Red Blood Count 4.79 10 4.30-6.10 Normal (applies to non-numeric results) [facility]) White Blood Count 7.8 10 4.0-10.0 Normal (applies to non-numeri c results) [facility]) Mean Corpuscular Hemoglobin 32.4 pg 27.0-33.0 Norm al (applies to non-numeric results) [facility] ([facility]) Hematocrit 48.0 % 42.0-52.0 Normal (applies to non-numeric resul ts) [facility]) Mean Corpuscular Volume 100.2 fl 80.0-96.0 Above high normal [facility] ([facility]) Red Cell Distribution Width 12.9 % 11.5-14.5 Norm al (applies to non-numeric results) [facility] ([facility]) Mean Corpuscular HGB Conc 32.3 g/dL 32.0-36.5 Normal (applies to non-numeric results) [facility] ([facility]) Platelet Count, Automated 330 10 150-450 Normal (applies to non-numeric results) [facility] ([facility]) Lymph % 19.1 % 24.0-44.0 Below low normal [facility] ( [facility]) Neutrophils % 69.4 % 36.0-66.0 Above high normal MEDE NT ([facility]) [place] % 10.2 % 0.0-5.0 Above high normal [facility] ([facility]) Eos % 0.1 % 0.0-3.0 Normal (applies to non-numeric resul ts) [facility] ([facility]) Baso % 0.8 % 0.0-1.0 Normal (applies to non-numeric resul ts) [facility] ([facility]) Nucleated Red Blood Cell % 0.0 % 0-0 Normal (applies to n on-numeric results) [facility] ([facility]) Neutrophils # 5.4 10 1.5-8.5 Normal (applies to non-numeric re sults) [facility] ([facility]) Immature Granulocyte % 0.4 % 0-3.0 Normal (applies to non-n umeric results) [facility] ([facility]) Eos # 0.0 10 0.0-0.5 Normal (applies to non-numeric resul ts) [facility] ([facility]) [place] # 0.8 10 0.0-0.8 Normal (applies to non-numeric resul ts) [facility] ([facility]) Lymph # 1.5 10 1.5-5.0 Normal (applies to non-numeric resul ts) [facility] ([facility]) Baso # 0.1 10 0.0-0.2 Normal (applies to non-numeric resul ts) [facility] ([facility]) ID Date Data Source URINE CULTURE 11/12/2020 12:00:00 AM EST eCW1 ([facility]) Name Value Range Interpretation Code Description Data Flakita rce(s) Supporting Document(s) URINE CULTURE eCW1 ([facility]) ID Date Data Source UA URINALYSIS 11/12/2020 12:00:00 AM EST eCW1 ([facility]) Name Value Range Interpretation Code Description Data Flakita rce(s) Supporting Document(s) UA URINALYSIS eCW1 ([facility]) ID Date Data Source [id number] 10/30/2020 12:40:00 PM EST MEDENT ([facility]) Name Value Range Interpretation Code Description Data Flakita rce(s) Supporting Document(s) Laboratory test finding (navigational concept) Laboratory test result [facility] ([facility]) Test: COVID-19 Nasal/Naspharynx Result: NOT DETECTED Reference Units: Not detected Note: Please consider re-collection of a new specimen, if clinically indicated. Note: The COVID-19 assay is under Emergency Use Authorization(EUA) by the U.S. Food and Drug Administration. [facility] is designated as a high complexity laboratory by the Clinical Laboratory Improvement Amendments of 1988(CLIA) and is qualified to perform this test. ASSAY INFORMATION: Real Time RT-PCR ID Date Data Source [id number] 10/30/2020 12:00:00 AM EST [facility] Name Value Range Interpretation Code Description Data Flakita rce(s) Supporting Document(s) 2019-nCoV RNA XXX ILANA+probe-Imp [facility] This lab was ordered by [facility] and reported by [facility]. ID Date Data Source [id number] 06/30/2020 11:11:00 AM EDT [facility] Name Value Range Interpretation Code Description Data Flakita rce(s) Supporting Document(s) White Blood Count Laboratory test result 4.3-10.9 MED[facility] ([facility]) Hemoglobin 16.6 14.0-16.0 MED[facility] ([facility]) Red Blood Count Laboratory test result 4.70-6.20 MED[facility] ([facility]) Platelets 279 150-450 [facility] ([facility]) Hematocrit 49.7 41.0-51.0 [facility] ([facility]) ID Date Data Source [id number] 06/30/2020 11:11:00 AM EDT [facility] Name Value Range Interpretation Code Description Data Flakita rce(s) Supporting Document(s) Albumin [Mass/volume] in Serum or Plasma 4.7 [facility] ([facility]) Alanine aminotransferase [Enzymatic activity/volume] in Serum or Pl asma 25 [facility] ([facility]) Calcium [Mass/volume] in Serum or Plasma 9.5 [facility] ([facility]) Carbon dioxide, total [Moles/volume] in Serum or Plasma 28 [facility] ([facility]) Alkaline phosphatase [Enzymatic activity/volume] in Serum or Plasma 1 17 [facility] ([facility]) Chloride [Moles/volume] in Serum or Plasma 100 [facility] ([facility]) Protein [Mass/volume] in Serum or Plasma 7.3 MED[facility] ([facility]) Potassium [Moles/volume] in Serum or Plasma 4.5 MED[facility] ([facility]) Sodium 141 MED[facility] ([facility]) Urea nitrogen [Mass/volume] in Serum or Plasma 14 [facility] ([facility]) Aspartate aminotransferase [Enzymatic activity/volume] in Serum or Plasma 27 [facility] ([facility]) Glucose 97 65-110 MED[facility] ([facility]) Creatinine For GFR 0.8 [facility] ([facility]) ID Date Data Source [id number] 06/30/2020 11:11:00 AM EDT MEDENT ([facility]) Name Value Range Interpretation Code Description Data Flakita rce(s) Supporting Document(s) Thyroid Stimulating Hormone 0.89 ME DENT ([facility]) ID Date Data Source [id number] 06/30/2020 11:11:00 AM EDT MEDENT ([facility]) Name Value Range Interpretation Code Description Data Flakita rce(s) Supporting Document(s) Hemoglobin A1c/Hemoglobin.total in Blood 6.0 MEDENT ([facility]) ID Date Data Source [id number] 06/30/2020 09:36:00 AM EDT [facility] ([facility]) Name Value Range Interpretation Code Description Data Flakita rce(s) Supporting Document(s) Calcidiol [Mass/volume] in Serum or Plasma 23 ng/mL [facility] ([facility]) <content>VITAMIN-D(25HYDROXY)</content>< br/><content>Deficiency: <=20 ng/ml</content>
<content>Insufficiency: 21-29 ng/ml</content>
<content>Preferred level: => 30 ng/ml</content>
<conten t></content> Thyrotropin [Units/volume] in Serum or Plasma 0.89 uIU/mL 0.47-5.01 [facility] ([facility]) Cobalamin (Vitamin B12) [Mass/volume] in Serum or Plasma 1084 pg/mL 232-1245 [facility] ([facility]) ID Date Data Source [id number] 06/30/2020 09:36:00 AM EDT [facility] ([facility]) Name Value Range Interpretation Code Description Data Flakita rce(s) Supporting Document(s) Triglycerides 88 mg/dL 35-160 [facility] ([facility]) Cholesterol 202 mg/dL 131-200 Above high normal [facility] ([facility]) Cve Panel Laboratory test result [facility] ([facility]) LIPID PANEL HDL 69 mg/dL 29-86 [facility] ([facility]) LDL 117 mg/dL 65-175 [facility] ([facility]) Risk Factor 2.9 3.4-4.9 Below low normal [facility] ([facility]) LDL/HDL 1.70 1.00-3.55 [facility] ([facility]) CVE RISK CHOL/HDL LDL/HDL MEN: 1/2 AVERAGE 3.43 1.00 AVERAGE 4.97 3.55 2X AVERAGE 9.55 6.25 3X AVERAGE 23.99 7.99 WOMEN: 1/2 AVERAGE 3.27 1.47 AVERAGE 4.44 3.22 2X AVERAGE 7.05 5.03 3X AVERAGE 11.04 6.14 ID Date Data Source [id number] 06/30/2020 09:36:00 AM EDT [facility] ([facility]) Name Value Range Interpretation Code Description Data Flakita rce(s) Supporting Document(s) Comprehensive Metabo Laboratory test result [facility] ([facility]) COMPREHENSIVE METABOLIC PANEL Chloride 100 meq/L 98-107 [facility] ([facility]) Potassium 4.5 meq/L 3.6-5.0 [facility] ([facility]) Sodium 141 meq/L 134-153 [facility] ([facility]) Co2 28 meq/L 22-30 [facility] ([facility]) BUN 11 mg/dL 7-21 [facility] ([facility]) Glucose 97 mg/dL 65-110 [facility] ([facility]) Creatinine 0.8 mg/dL 0.7-1.5 [facility] ([facility]) BUN/Creat 14 8-27 [facility] ([facility]) Total Protein 7.3 g/dL 6.3-8.2 [facility] ([facility]) A/G Ratio 1.8 0.8-2.0 [facility] ([facility]) Globulin 2.6 GM/DL 2.4-3.2 [facility] ([facility]) Albumin 4.7 g/dL 3.9-5.0 [facility] ([facility]) Calcium 9.5 mg/dL 8.4-10.2 [facility] ([facility]) Alkaline Phos 117 U/L 38-126 [facility] ([facility]) Total Bili 0.7 mg/dL 0.2-1.3 [facility] ([facility]) Anion Gap 13.0 mmol/L 8.0-16.0 [facility] ([facility]) Sgot/Ast 27 U/L 5-40 [facility] ([facility]) SGPT/Alt 25 U/L 7-56 [facility] ([facility]) Afr Amer GFR Laboratory test result [facility] ([facility]) Male GFR Interprentation 20-49 yrs >60 mL/min Normal 50-59 yrs >56 mL/min Normal 60-69 yrs >49 mL/min Normal 70-79yrs >42 mL/min Normal 80 and above >35 mL/min Normal Female GFR Interpretation 20-39 yrs >60 mL/min Normal 40-49 yrs >58 mL/min Normal 50-59 yrs >51 mL/min Normal 60-69 yrs >45 mL/min Normal 70-79 yrs >39 mL/min Normal 80 and above >32 mL/min Normal Age 60 yrs [facility] ([facility]) Non-Aa GFR Laboratory test result [facility] ([facility]) ID Date Data Source [id number] 06/30/2020 09:36:00 AM EDT [facility] ([facility]) Name Value Range Interpretation Code Description Data Flakita rce(s) Supporting Document(s) CBC W/Automated Diff Laboratory test result [facility] ([facility]) COMPLETE BLOOD COUNT WBC 6.7 10^3/uL 4.2-11.0 [facility] ([facility]) Hematocrit 49.7 % 41.0-51.0 [facility] ([facility]) RBC 5.00 10^6/uL 4.50-6.30 [facility] ([facility]) Hemoglobin 16.6 g/dL 14.0-16.0 Above high normal [facility] ([facility]) MCH 33.2 pg 27.0-34.0 [facility] ([facility]) MCHC 33.4 g/dL 31.0-36.0 [facility] ([facility]) MCV 99.4 fL 80.0-94.0 Above high normal [facility] ([facility]) RDW 13.3 % 11.5-14.8 [facility] ([facility]) Platelets 279 10^3/uL 150-450 [facility] ([facility]) MPV 8.8 fL 7.4-10.4 [facility] ([facility]) Lymph 18.4 % 25.0-40.0 Below low normal [facility] ( [facility]) Neut 69.6 % 37.0-80.0 [facility] ([facility]) Eos 2.1 % 0.0-7.0 [facility] ([facility]) [place] 8.8 % 3.0-8.0 Above high normal [facility] ([facility]) Baso 1.0 % 0.0-2.0 [facility] ([facility]) %Ig 0.1 % 0.0-0.0 Above high normal [facility] ([facility]) %NRBC 0.0 % 0.0-0.0 [facility] ([facility]) #Neut 4.64 10^3/uL 2.00-6.90 [facility] ([facility]) #[place] 0.59 10^3/uL 0.00-0.90 [facility] ([facility]) #Eos 0.14 10^3/uL 0.00-0.70 [facility] ([facility]) #Lymph 1.23 10^3/uL 0.60-3.40 [facility] ([facility]) #Ig 0.01 10^3/uL 0.00-0.10 [facility] ([facility]) #Baso 0.07 10^3/uL 0.00-0.20 [facility] ([facility]) #NRBC 0.00 10^3/uL 0.00-0.00 [facility] ([facility]) Manual Diff Laboratory test result M [facility] ([facility]) %Lymph 18 % 25-40 Below low normal [facility] ([facility]) Segs 71 % 37-80 [facility] ([facility]) %Eos 1 % 0-7 [facility] ([facility]) RBC Morph Laboratory test result [facility] ([facility]) %[place] 10 % 3-8 Above high normal [facility] ([facility]) ID Date Data Source [id number] 06/30/2020 09:36:00 AM EDT [facility] ([facility]) Name Value Range Interpretation Code Description Data Flakita rce(s) Supporting Document(s) Hemoglobin A1c/Hemoglobin.total in Blood 6.0 % 4.4-6.1 [facility] ([facility]) {A1] {HB] ID Date Data Source [id number] 06/30/2020 09:36:00 AM EDT [facility] ([facility]) Name Value Range Interpretation Code Description Data Flakita rce(s) Supporting Document(s) Lab - Specimen Rejec Laboratory test result [facility] ([facility]) Specimen Integrity/Specimen Recollection The patient sample needs to be resubmitted for the following reason: Test(s) Ordered Laboratory test result [facility] ([facility]) Rejection Reason Laboratory test result [facility] ([facility]) { One or more of the tests you ordered cannot be performed. { Please recollect, reorder, and resubmit if needed. ID Date Data Source [id number] 06/30/2020 09:36:00 AM EDT [facility] ([facility]) Name Value Range Interpretation Code Description Data Flakita rce(s) Supporting Document(s) Hemoglobin A1c/Hemoglobin.total in Blood Laboratory test result [facility] ([facility]) Thyrotropin [Units/volume] in Serum or Plasma Laboratory test result [facility] ([facility]) Cobalamin (Vitamin B12) [Mass/volume] in Serum or Plasma Lab oratory test result [facility] ([facility]) Calcidiol [Mass/volume] in Serum or Plasma Laboratory test result [facility] ([facility]) Folate [Mass/volume] in Red Blood Cells Laboratory test result [facility] ([facility]) ID Date Data Source [id number] 06/30/2020 04:12:00 PM EDT [facility] Name Value Range Interpretation Code Description Data Flakita rce(s) Supporting Document(s) Cobalamin (Vitamin B12) [Mass/volume] in Serum or Plasma 1084 PG /ML 232 - 1245 [facility] ID Date Data Source [id number] 06/30/2020 04:12:00 PM EDT [facility] Name Value Range Interpretation Code Description Data Flakita rce(s) Supporting Document(s) Calcidiol [Moles/volume] in Serum or Plasma 23 NG/ML [facility] VITAMIN-D(2 5HYDROXY) Deficiency: <=20 ng/ml Insufficiency: 21-29 ng/ml Preferred level: => 30 ng/ml ID Date Data Source [id number] 06/30/2020 04:12:00 PM EDT [facility] Name Value Range Interpretation Code Description Data Flakita rce(s) Supporting Document(s) Thyrotropin [Units/volume] in Serum or Plasma by Detec tion limit <= 0.05 mIU/L 0.89 uIU/mL 0.47 - 5.01 [facility] ID Date Data Source [id number] 06/30/2020 03:52:00 PM EDT [facility] Name Value Range Interpretation Code Description Data Flakita rce(s) Supporting Document(s) CVE PANEL [facility] LIPID PANEL Cholesterol [Mass/volume] in Serum or Plasma 202 MG/DL 131 - 200 H [facility] Deprecated Triglyceride [Mass/volume] in Serum or Plasma 88 MG/DL 3 5 - 160 [facility] HDL 69 MG/DL 29 - 86 [facility] Cholesterol in LDL [Mass/volume] in Serum or Plasma by Direc t assay 117 mg/dL 65 - 175 [facility] Cholesterol.total/Cholesterol in HDL [Mass Ratio] in Serum o r Plasma 2.9 3.4 - 4.9 L [facility] LDL/HDL 1.70 1.00 - 3.55 [facility] CVE RISK CHOL/HDL LDL/HDLMEN: 1/2 AVERAGE 3.43 1.00 AVERAGE 4.97 3.55 2X AVERAGE 9.55 6.25 3X AVERAGE 23.99 7.99WOMEN: 1/2 AVERAGE 3.27 1.47 AVERAGE 4.44 3.22 2X AVERAGE 7.05 5.03 3X AVERAGE 11.04 6.14 ID Date Data Source [id number] 06/30/2020 03:46:00 PM EDT [facility] Name Value Range Interpretation Code Description Data Flakita rce(s) Supporting Document(s) COMPREHENSIVE METABOLIC PANEL [facility] COMPREHENSIVE METABOLIC PANEL Sodium [Moles/volume] in Serum or Plasma 141 mEq/L 134 - 153 [facility] Potassium [Moles/volume] in Serum or Plasma 4.5 mEq/L 3.6 - 5.0 [facility] Chloride [Moles/volume] in Serum or Plasma 100 mEq/L 98 - 107 [facility] Carbon dioxide, total [Moles/volume] in Serum or Plasma 28 MEQ/L 22 - 30 [facility] Glucose [Mass/volume] in Serum or Plasma 97 MG/DL 65 - 110 [facility] BUN 11 MG/DL 7 - 21 [facility] Creatinine [Mass/volume] in Serum or Plasma 0.8 MG/DL 0.7 - 1.5 [facility] BUN/CREAT 14 8 - 27 [facility] Protein [Mass/volume] in Serum or Plasma 7.3 G/DL 6.3 - 8.2 [facility] Albumin [Mass/volume] in Serum or Plasma 4.7 G/DL 3.9 - 5.0 [facility] Globulin [Mass/volume] in Serum by calculation 2.6 GM/DL 2.4 - 3.2 [facility] A/G RATIO 1.8 0.8 - 2.0 [facility] Calcium [Mass/volume] in Serum or Plasma 9.5 MG/DL 8.4 - 10.2 [facility] Bilirubin.total [Mass/volume] in Serum or Plasma 0.7 MG/DL 0.2 - 1.3 [facility] Alkaline phosphatase [Enzymatic activity/volume] in Serum or Plasma 117 U/L 38 - 126 [facility] Aspartate aminotransferase [Enzymatic activity/volume] in Serum or Plasma 27 U/L 5 - 40 [facility] Alanine aminotransferase [Enzymatic activity/volume] in Seru m or Plasma 25 U/L 7 - 56 [facility] Anion gap 3 in Serum or Plasma 13.0 mmol/L 8.0 - 16.0 [facility] AGE 60 yrs [facility] NON-AA GFR >60 mL/min [facility] AFR AMER GFR >60 mL/min [facility] Male GFR In terprentation 20-49 yrs >60 mL/min Normal 50-59 yrs >56 mL/min Normal 60-69 yrs >49 mL/min Normal 70-79yrs >42 mL/min Normal 80 and above >35 mL/min Normal Female GFR Interpretation 20-39 yrs >60 mL/min Normal 40-49 yrs >58 mL/min Normal 50-59 yrs >51 mL/min Normal 60-69 yrs >45 mL/min Normal 70-79 yrs >39 mL/min Normal 80 and above >32 mL/min Normal ID Date Data Source [id number] 06/30/2020 01:48:00 PM EDT [facility] Name Value Range Interpretation Code Description Data Flakita rce(s) Supporting Document(s) CBC W/AUTOMATED DIFF [facility] COMPLETE BLOOD COUNT Leukocytes [#/volume] in Blood by Automated count 6.7 10^3/uL 4.2 - 1 1.0 [facility] Erythrocytes [#/volume] in Blood by Automated count 5.00 10^6/uL 4. 50 - 6.30 [facility] Hemoglobin [Mass/volume] in Blood 16.6 g/dL 14.0 - 16.0 H [facility] Hematocrit [Volume Fraction] of Blood by Automated count 49.7 % 4 1.0 - 51.0 [facility] Erythrocyte mean corpuscular volume [Entitic volume] by Auto mated count 99.4 fL 80.0 - 94.0 H [facility] Erythrocyte mean corpuscular hemoglobin [Entitic mass] by Automated count 33.2 pg 27.0 - 34.0 [facility] Erythrocyte mean corpuscular hemoglobin concentration [Mass/volume] by Automated count 33.4 g/dL 31.0 - 36.0 [facility] Erythrocyte distribution width [Ratio] by Automated count 13.3 % 11.5 - 14.8 [facility] Platelets [#/volume] in Blood by Automated count 279 10^3/uL 150 - 45 0 [facility] Platelet mean volume [Entitic volume] in Blood by Automated count 8.8 fL 7.4 - 10.4 [facility] Neutrophils/100 leukocytes in Blood by Automated count 69.6 % 37. 0 - 80.0 [facility] Lymphocytes/100 leukocytes in Blood by Manual count 18.4 % 25.0 - 40.0 L [facility] Monocytes/100 leukocytes in Blood by Automated count 8.8 % 3.0 - 8.0 H [facility] Eosinophils/100 leukocytes in Blood by Automated count 2.1 % 0.0 - 7.0 [facility] Basophils/100 leukocytes in Blood by Automated count 1.0 % 0.0 - 2.0 [facility] %IG 0.1 % 0.0 - 0.0 [facility] %NRBC 0.0 % 0.0 - 0.0 [facility] Neutrophils [#/volume] in Blood by Automated count 4.64 10^3/uL 2.00 - 6.90 [facility] Lymphocytes [#/volume] in Blood by Automated count 1.23 10^3/uL 0.60 - 3.40 [facility] Monocytes [#/volume] in Blood by Automated count 0.59 10^3/uL 0.00 - 0.90 [facility] Eosinophils [#/volume] in Blood by Automated count 0.14 10^3/uL 0.00 - 0.70 [facility] Basophils [#/volume] in Blood by Automated count 0.07 10^3/uL 0.00 - 0.20 [facility] #IG 0.01 10^3/uL 0.00 - 0.10 [facility] #NRBC 0.00 10^3/uL 0.00 - 0.00 [facility]ital MANUAL DIFF SEE BELOW [facility] ital Segmented neutrophils/100 leukocytes in Blood by Manual count 71 % 37 - 80 [facility] %LYMPH 18 % 25 - 40 L [facility] %MONO 10 % 3 - 8 H [facility] %EOS 1 % 0 - 7 [facility] RBC MORPH MORPH IS NORMAL [facility] ID Date Data Source [id number] 06/30/2020 01:27:00 PM EDT [facility] Name Value Range Interpretation Code Description Data Flakita rce(s) Supporting Document(s) Hemoglobin A1c/Hemoglobin.total in Blood 6.0 % 4.4 - 6.1 [facility] {A1]{HB] ID Date Data Source [id number] 06/30/2020 12:52:00 PM EDT [facility] Name Value Range Interpretation Code Description Data Flakita rce(s) Supporting Document(s) LAB - SPECIMEN REJECTION [facility] Specimen Integrity/Specimen Recollection The patient sample needs to be resubmitted for the following reason: Test(s) Ordered FOLIC ACID RBC [facility] Rejection Reason QNS [facility] { One or more of the tests you ordered cannot be performed.{ Please recollect, reorder, and resubmit if needed. Procedure Social History Code Duration Value Status Description Data Source(s ) Smoking 11/12/2020 12:00:00 AM EST Former Smoker completed Former Smoker eCW1 ([facility]) Smoking 09/22/2020 12:00:00 AM EST - 11/21/2018 12:00:00 AM EST Patient is a former smoker completed Patient is a former smoker [facility] ([facility]) Vital Signs ID Date Data Source UNK Name Value Range Interpretation Code Description Data Source(s) Body surface area Derived from formula 1.51 m2 1.51 m2 [facility] ([facility]) Body weight 49.442 kg 49.442 kg [facility] ([facility]) [place] body weight 130 [lb_av] 130 [lb_av] [facility] ([facility]) Body mass index (BMI) [Ratio] 18.7 kg/m2 18.7 k g/m2 [facility] ([facility]) Body weight 109.00 [lb_av] 109.00 [lb_av] [facility] ([facility]) Body height 64 [in_i] 64 [in_i] [facility] ([facility]) 5'4" Diastolic blood pressure 68 mm[Hg] 68 mm[Hg] [facility] ([facility]) Systolic blood pressure 128 mm[Hg] 128 mm[Hg] M [facility] ([facility] ) Diastolic blood pressure 82 mm[Hg] 82 mm[Hg] eCW1 ([facility]) Systolic blood pressure 122 mm[Hg] 122 mm[Hg] e CW1 ([facility]) Body temperature 98.2 [degF] 98.2 [degF] eCW1 ( [facility]) Respiratory rate 20 /min 20 /min eCW1 ([facility]) Heart rate 86 /min 86 /min eCW1 ([facility]) Body mass index (BMI) [Ratio] 0.13 kg/m2 0.13 k g/m2 eCW1 ([facility]) Body height [in_i] eCW1 ([facility]) Body weight 110 [lb_av] 110 [lb_av] eCW1 ([facility]) Body surface area Derived from formula 1.54 m2 1.54 m2 [facility] ([facility]) Body mass index (BMI) [Ratio] 19.4 kg/m2 19.4 k g/m2 [facility] ([facility]) Body height 64 [in_i] 64 [in_i] [facility] 5'4" Body weight 51.370 kg 51.370 kg [facility] Body weight 113.25 [lb_av] 113.25 [lb_av] MED[facility] T ([facility]) Oxygen saturation in Arterial blood by Pulse oximetry 96 % 96 % [facility]) Respiratory rate 16 /min 16 /min [facility] ( [facility]) Body temperature 97.1 [degF] 97.1 [degF] [facility] ([facility]) Heart rate 100 /min 100 /min [facility] Diastolic blood pressure 80 mm[Hg] 80 mm[Hg] [facility] ([facility]) Systolic blood pressure 122 mm[Hg] 122 mm[Hg] M [facility] ([facility]) Body surface area Derived from formula 1.54 m2 1.54 m2 [facility] Body weight 51.370 kg 51.370 kg [facility] ([facility]) [place] body weight 130 [lb_av] 130 [lb_av] [facility] T ([facility]) Body mass index (BMI) [Ratio] 19.4 kg/m2 19.4 k g/m2 [facility] Body weight 113.25 [lb_av] 113.25 [lb_av] [facility] T ([facility]) Body height 64 [in_i] 64 [in_i] [facility] ([facility]) 5'4" Body temperature 99.1 [degF] 99.1 [degF] [facility] ([facility]) Oxygen saturation in Arterial blood by Pulse oximetry 93 % 93 % [facility] ([facility]) Heart rate 96 /min 96 /min [facility] ([facility]) Diastolic blood pressure 74 mm[Hg] 74 mm[Hg] [facility] ([facility]) Systolic blood pressure 122 mm[Hg] 122 mm[Hg] M [facility] ([facility]) Body surface area Derived from formula 1.50 m2 1.50 m2 [facility] ([facility]) Body mass index (BMI) [Ratio] 18.3 kg/m2 18.3 k g/m2 [facility] ([facility]) Body height 64 [in_i] 64 [in_i] [facility] ([facility]) 5'4" Body weight 48.252 kg 48.252 kg [facility] ([facility]) Body weight 106.38 [lb_av] 106.38 [lb_av] [facility] T ([facility]) Oxygen saturation in Arterial blood by Pulse oximetry 95 % 95 % [facility] ([facility]) Respiratory rate 16 /min 16 /min [facility] ( [facility]) Body temperature 97.2 [degF] 97.2 [degF] [facility] ([facility]) Heart rate 90 /min 90 /min [facility] ([facility]) Diastolic blood pressure 64 mm[Hg] 64 mm[Hg] [facility] ([facility]) Systolic blood pressure 112 mm[Hg] 112 mm[Hg] M [facility] ([facility]) Body surface area 1.50 m2 1.50 m2 [facility] ([facility]) Body weight 51.313 kg 51.313 kg [facility] ([facility]) Body mass index (BMI) [Ratio] 19.4 kg/m2 19.4 k g/m2 [facility] ([facility]) Body weight 113.12 [lb_av] 113.12 [lb_av] [facility] Body height 64 [in_i] 64 [in_i] [facility] ([facility]) 5'4" Body temperature 98.3 [degF] 98.3 [degF] [facility] ([facility]) Oxygen saturation in Arterial blood by Pulse oximetry 93 % 93 % [facility] ([facility]) Heart rate 103 /min 103 /min [facility] ([facility]) Diastolic blood pressure 90 mm[Hg] 90 mm[Hg] [facility] ([facility]) Systolic blood pressure 138 mm[Hg] 138 mm[Hg] [facility] ([facility], ) Body height 64 [in_i] 64 [in_i] [facility] ([facility]) 5'4" Patient Treatment Plan of Care Planned Activity Planned Date Details Description Data Source (s) Sulfamethoxazole 800 MG / Trimethoprim 160 MG Oral Tab let 11/12/2020 12:00:00 AM EST eCW1 ([facility])
--- OUTSIDE RECORDS SUMMARY | 2020-12-19 11:34 | CCD ---
Author Author [facility] Organization [facility] Address Unknown Phone Unavailable Care Team Providers Care Vp Director Of Finance Name Role Phone Jadon Galvez Unavailable PROBLEMS Type Condition ICD9-CM Code RUO30-LC Code Onset Dates Condition S tatus SNOMED Code Notes Problem Benign prostatic hyperplasia with lower urinary tract symptoms N40.1 Active 39923546412214 Problem Balanitis N48.1 Active [id number] ALLERGIES No Known Allergies ENCOUNTERS from 1960 to 2020-11-24 Encounter Location Date Provider Diagnosis [facility] [address] [place] [address] Oct Jadon Galvez Benign prostatic hyperplasia with lower urinary tract symptoms N40.1 ; Balanitis N48.1 and Prostate cancer screening Z12.5 IMMUNIZATIONS No Information SOCIAL HISTORY Tobacco Use: Social History Observation Description Date Details (start date - stop date) Former Smoker Sex Assigned At : Social History Observation Description Sex Assigned At Unknown Sexual Hx: Question Answer Notes Had sex in the last 12 months (vaginal, oral, or anal)? Yes Have you ever had an STD? Yes with Women only Use protection? No Alcohol Screening: Question Answer Notes Did you have a drink containing alcohol in the past year? No Points 0 Interpretation Negative Tobacco Use: Question Answer Notes Are you a: former smoker quit 2 years ago REASON FOR REFERRAL No Information VITAL SIGNS Weight 110 lbs Oct, Height 64'' in Oct, BMI 0.13 kg/m2 Oct, Heart Rate 86 /min Oct, Respiratory Rate 20 /min Oct, Temperature 98.2 degrees Fahrenheit Oct, Oximetry 91% Oct, Blood pressure systolic 122 mm Hg Oct, Blood pressure diastolic 82 mm Hg Oct, MEDICATIONS Medication SIG (Take, Route, Frequency, Duration) Notes Start Da te End Date Status Levalbuterol Tartrate 45 MCG/ACT 1 puff as needed Inhalation every 4 hrs Active Mucinex 600 MG 1 tablet as needed Orally every 12 hrs Not-Taking Ketoconazole 2 % 1 application to affected ar ea Externally Once a day for 30 days Oct, Not-Taking Anoro Ellipta 62.5-25 MCG/INH 1 puff Inhalation Once a day Not-Taking Albuterol-Ipratropium 2.5-0.5 MG/3ML 3 ml Inhalation every 6 hrs Active Multi Complete - Orally Not-Taki ng Apple Cider Vinegar Activ e Omeprazole 40 MG 1 capsule Orally Once a day Not-Taking Cipro 500 MG 1 tablet Orally ONE HOUR PRIOR TO PROCEDURE for 1 dose(s) Jan, Not-Taking Flonase Allergy Relief 50 MCG/ACT 1 spray in each nostril Nasall y Once a day Not-Taking Ketoconazole 2 % 1 application to affected area Externally BID f or 30 day(s) Sep, Active Budesonide 1 MG/2ML 4 ml Inhalation Four times a day Active Spiriva HandiHaler Active Simvastatin 20 MG 1 tablet in the evening Orally Once a day for 30 da y(s) Active Diflucan 100 MG 1 tablet Orally Once a day for 7 day(s) Oct, Not-Taking Stiolto Respimat 2.5-2.5 MCG/ACT 2 puffs Inhalation Once a day Active Sulfamethoxazole-Trimethoprim 800-160 MG 1 tablet 1 ho ur prior to your cystoscopy Orally Once for 1 days Oct, Active Vitamin D3 Ultra Potency 1.25 MG (01521 UT) 1 tablet Orally for 30 da y(s) Active Flomax 0.4 MG 1 capsule Orally Once a day for 30 Active Ginseng Active Pantoprazole Sodium 40 MG 1 tablet Orally Once a day for 30 day(s) Active Aspir-Low 81 MG 1 tablet Orally Once a day for 30 day(s) Active Clotrimazole 10 MG 1 kaylee Mouth/Throat Five times a day for 14 day( s) Active Lidocaine HCl Jelly SENIOR CARE 2 % 5 ML1 application to affec chiquis area as needed Intravesically TIME AT CYSTOSCOPY for 1 dose(s) Feb, Not-Taking BusPIRone HCl 7.5 MG 1 tablet Orally Twice a day Not-Taking Pepcid 20 MG 1 tablet at bedtime as needed Orally Once a day for 30 day(s) Active Simethicone Active PROCEDURES No Information RESULTS Component Value Reference Range UA URINALYSIS Reviewed date:11/12/2020 14:33:51 Interpretation: Performing Lab:[facility] [address] [facility] [address] , ,[facility] URINE CULTURE Reviewed date:11/17/2020 09:28:14 Interpretation: Performing Lab:[facility] [address] [facility] [address] , ,[facility] REASON FOR VISIT bph MEDICAL (GENERAL) HISTORY Type Description Date Medical History COPD Medical History GERD Surgical History colonoscopy 2016 Surgical History hemorroidectomy Surgical History tonsil removed at 13 Goals Section No Information Health Concerns No Information MEDICAL EQUIPMENT No Information MENTAL STATUS No Information FUNCTIONAL STATUS No Information ASSESSMENTS Encounter Date Diagnosis Assessment Notes Treatment Notes Treatm ent Clinical Notes Oct, Benign prostatic hyperplasia with lower urinary tract symptoms (ICD-10 - N40.1) Will send UA and culture today. PVR today is 12 cc. His obstructive LUTS are getting worse despite being on Flomax. Recommended doing a cystoscopy to better evaluate. Procedure and consent reviewed and signed, abx sent to pharmacy. Oct, Balanitis (ICD-10 - N48.1) Will give a refill of cream to help with intermintent balantis. Oct, Prostate cancer screening (ICD-10 - Z12.5) Order given to do PSA prior to next visit. Oct, Other Patient Educated with: Cystoscopy (In-Office) Procedure and Instructions.pdf (Cystoscopy (In-Office) Procedure and Instructions.pdf),Cystoscopy material was printed,Cystoscopy material was printed,Cystoscopy home care material was printed PLAN OF TREATMENT Medication Medication Name Sig Start Date Stop Date Sulfamethoxazole-Trimethoprim 800-160 MG 1 tablet 1 ho ur prior to your cystoscopy Orally Once for 1 days Oct, Ketoconazole 2 % 1 application to affected area Externall y BID for 30 day(s) Sep, Treatment Notes Assessment Notes Clinical Notes Benign prostatic hyperplasia with lower urinary tract sympto ms Will send UA and culture today.PVR today is 12 cc.His obstructive LUTS are getting worse despite being on Flomax. Recommended doing a cystoscopy to better evaluate. Procedure and consent reviewed and signed, abx sent to pharmacy. Wenceslao Will give a refill o f cream to help with intermintent balantis. Prostate cancer screening Order given to do PSA prior to next visit. Treatment Notes Test Name Order Date PSA SCREENING 2020-11-24 uro PVR (Post Voiding Residual) Bladder Scan 4 Next Appt Details cystoscopy Reason:BPH with LUTS Provider Name:Marlo Blanca, 08:00:00 AM, [address], [place], [address], Follow Up:cystoscopyBPH with LUTS Insurance Providers Payer Name Payer Address Payer Phone Insured Name Patient Relati onship to Insured Coverage Start Date Coverage End Date BS [place] [facility] [address] [facility] [id number] [phone] YECENIA REICH self
--- NOTE | 2020-12-19 13:20 | REP ---
INDICATION: sob. COMPARISON: Comparison chest x-ray November 18, 2020. TECHNIQUE: Two views.. FINDINGS: The lungs are quite hyperinflated consistent with COPD. No acute infiltrate is seen. Pleural angles are sharp. Diaphragms are somewhat inverted. Emphysematous changes are noted throughout the upper lung zones as before. Heart size is normal. No significant bony abnormality is seen. The IMPRESSION: Significant hyperinflation consistent with advanced COPD emphysematous changes in the upper lobes. No infiltrate seen.. <Electronically signed by Mehrdad Rico > 12/19/20 3032
--- OUTSIDE RECORDS SUMMARY | 2020-12-19 14:20 | CCD ---
Author Author [facility] Organization [facility] Address Unknown Phone Unavailable Care Team Providers [employer] Transactions Attorney Name Role Phone Benny Glaser Unavailable Unavailable [...] is protected by Article 27-F of the [facility] Public Health law. If you continue you may have access to information: Regarding HIV / AIDS; Provided by facilities licensed or operated by the [facility] Office of Mental Health; or Provided by the [facility] Office for People With Developmental Disabilities. If such information is present, then the following [facility] mandated warning applies: This information has [...] law may result in a fine or usp sentence or both. A general authorization for the release of medical or other information is NOT sufficient authorization for further disc losure. Family History Family Member Name Family Member Gender Family Member Status Date o f Status Description Data Source(s) Unknown Male Problem [facility] ([facility] Unknown Male Problem [facility] ([facility]) Unknown Unknown Problem [facility] ([facility]) Unknown Female Problem [facility] Encounters Encounter Providers Location Date Indications Data Source(s ) [place] [address] [address] 11/12/2020 12:00:00 AM EST eCW1 ([facility]) Outpatient Attender: Rosmery AYERS-CConsultant: Migdalia AYERS 10/06/2020 08:53:00 AM EST - 10/06/2020 08:53:00 AM EST [facility] Outpatient Attender: Drea Geronimo/Jacob/Gurdeep/Dakota ndl 09/22/2020 02:30:00 PM EST MED[facility] ([facility] Outpatient Attender: Rosmery PÉREZCConsultant: Migdalia AYERS 06/30/2020 08:40:00 AM EDT - 06/30/2020 08:40:00 AM EDT [facility] Outpatient Attender: Drea Geronimo/Jacob/Gurdeep/Dakota ndl 06/25/2020 01:00:00 PM EDT [facility] ([facility] Medications Medication Brand Name Start Date Product Form Dose Route Admi nistrative Instructions Pharmacy Instructions Status Indications Reaction Description Data Source(s) Sulfamethoxazole 800 MG / Trimethoprim 1 60 MG Oral Tablet Sulfamethoxazole- Trimethoprim 800-160 MG Sulfamethoxazole-Trimethoprim 800-160 MG 11/12/2020 12:00:00 AM EST active Sulfamet hoxazole-Trimethoprim 800-160 MG eCW1 ([facility]) Famotidine 20 MG Oral Tablet [Pepcid] Pepcid 10/06/2020 12:00:00 AM EST ORAL active MEDENT ([facility]) Prednisone 10 MG Oral Tablet Prednisone 09/22/2020 12:00:00 AM EST ORAL completed MEDENT ([facility], ) Cholecalciferol 66173 UNT Oral Tablet Vitamin D3 Ultra Poten cy 07/04/2020 12:00:00 AM EDT ORAL active M EDENT ([facility]) Stiolto Respimat Stiolto Respimat 06/26/2020 12:00:00 AM EDT RESPIRATORY completed MEDENT ([facility], ) formoterol fumarate 0.01 MG/ML Inhalant Solution [Perforomis t] Perforomist 06/25/2020 12:00:00 AM EDT completed MEDENT ([facility], ) Budesonide 0.5 MG/ML Inhalant Solution Budesonide 06/25/2020 12:0 0:00 AM EDT active MEDENT ([facility]) arformoterol 0.0075 MG/ML Inhalant Solution [Brovana] Brovan a 06/25/2020 12:00:00 AM EDT completed MEDENT ([facility]) 60 ACTUAT Budesonide 0.16 MG/ACTUAT / fo rmoterol fumarate 0.0045 MG/ACTUAT Metered Dose Inhaler [Symbicort] Symbicort 03/25/2020 12:00:00 AM EDT RESPIRATORY active MEDENT ( [facility]) Spiriva Respimat Spiriva Respimat 03/25/2020 12:00:00 AM EDT RESPIRATORY active MEDENT ([facility]) Insurance Providers Payer name Policy type / Coverage type Policy ID Covered alliance party ID Covered alliance party's relationship to jain Policy Jain Plan Information [facility] FEDERAL EMPLOYEE PROGRAM [id number] SP [id number] [facility] FED[employer]AL EMPLOYEE PROGRAM [id number] SP [id number] [facility] FEDERAL EMPLOYEE PROGRAM [id number] SP [id number] SELF PAY ONLY [id number] SP [id number] [employer] FEP BS [id number] 18 [id number] [employer] Fep Commercial [id number] Self [id number] [facility]P [id number] 18 [id number] [employer] Fep Commercial [id number] Self [id number] [employer] C [id number] Self [id number] [employer] Fep Commercial [id number] Self [id number] [facility] FED[facility] -PHYS [id number] 18 [id number] BS Federal Commercial [id number] Self [id number] Federal Commercial [id number] Self [id number] [employer] Fep Commercial [id number] Self [id number] [employer] Fep Commercial [id number] Self [id number] [employer] Fep Commercial [id number] Self [id number] BCBS Federal Plan Commercial [id number] Self [id number] [employer]BS FEDERAL [id number] SP [id number] [employer] BCBS FEDERAL [id number] SP [id number] BS Federal Commercial Self BC BS [place] FEDERAL P [id number] S [id number] BC/[place] OF [place] P [id number] S [id number] Problems, Conditions, and Diagnoses Code Display Name Description Problem Type Effective Dates Data Source(s) B370 Candidal stomatitis Candidal stomatitis Diagnosis 1 12/06/2019 08:53:00 AM [facility] K219 Gastro-esophageal reflux disease without esophagitis Gastro-esophageal reflux disease without esophagitis Diagnosis 10/06/2020 08:53:[address] [facility] J449 Chronic obstructive pulmonary disease, u nspecified Chronic obstructive pulmonary disease, unspecified Diagnosis 10/06/2020 08:53:00 AM [facility] G4733 Obstructive sleep apnea (adult) (pediatr ic) Obstructive sleep apnea (adult) (pediatric) Diagnosis 10/06/2020 08:53:00 AM [facility] Z0001 Encounter for general adult medical exam ination with abnormal findings Encounter for general adult medical examination with abnormal findings Diagnosis 06/30/2020 08:40:00 AM [facility] R233 Spontaneous ecchymoses Spontaneous ecchymoses Diagnosi s 06/30/2020 08:40:00 AM EDT [facility] R140 Abdominal distension (gaseous) Abdominal distension (g aseous) Diagnosis 06/30/2020 08:40:00 AM T [facility] Surgeries/Procedures Procedure Description Date Indications Data Source(s) Spirometry 09/22/2020 12:00:00 AM SAMUEL RYAN ([facility], ) Spirometry 06/25/2020 12:00:00 AM EDT Vidal RYAN ([facility], ) Results ID Date Data Source [id number] 11/18/2020 06:37:00 PM SAMUEL ARMENTA ([facility]) Name Value Range Interpretation Code Description Data Flakita rce(s) Supporting Document(s) Glucose, Fasting 98 mg/dL 70-100 Normal (applies to non-numeric results) MED[facility] ([facility]) Creatinine For GFR 0.76 mg/dL 0.70-1.30 Normal (applies to non -numeric results) [facility] ([facility]) Blood Urea Nitrogen 8 mg/dL 7-18 Normal (applies to non-nume phylicia results) [facility] ([facility]) Potassium Serum 4.4 meq/L 3.5-5.1 Normal (applies to non-numeric results) [facility] ([facility]) Glomerular Filtration Rate Laboratory test result Normal (applies to non- numeric results) [facility] ([facility]) <content>Units are mL/min/1.73 m2</content>
<content></content>
<content>Chronic Kidney Disease Staging per NKF:</content>
<content></content>
<content>Stage I & II GFR >=60 Normal to Mildly Decreased</content>
<content>Stage III GFR 30- 59 Moderately Decreased</content>
<content>Stage IV GFR 15-29 Severely Decreased</content>
<content>Stage V GFR <15 Very Little GFR Left</content>
<content>ESRD GFR <15 on FRUIT GRADER</content>
<content></content> Sodium Level 139 meq/L 136-145 Normal (applies to non-numeric res ults) MED[facility] ([facility]) Anion Gap 4 meq/L 8-16 Below low normal MED[facility] ( [facility]) Carbon Dioxide Level 33 meq/L 21-32 Above high normal [facility] ([facility]) Chloride Level 102 meq/L 98-107 Normal (applies to non-numeric r esults) [facility] ([facility]) Calcium Level 9.3 mg/dL 8.5-10.1 Normal (applies to non-numeric re sults) [facility] ([facility]) ID Date Data Source [id number] 11/18/2020 06:37:00 PM EST MEDENT ([facility]) Name Value Range Interpretation Code Description Data Flakita rce(s) Supporting Document(s) Alt/SGPT 22 U/L 12-78 Normal (applies to non-numeric resul ts) [facility] ([facility]) Ast/Sgot 20 U/L 7-37 Normal (applies to non-numeric resul ts) [facility] ([facility]) Bilirubin,Direct 0.2 mg/dL 0.0-0.2 Normal (applies to non-numeric results) [facility] ([facility]) Bilirubin,Total 0.5 mg/dL 0.2-1.0 Normal (applies to non-numeric results) [facility] ([facility]) Alkaline Phosphatase 121 U/L 45-117 Above high normal [facility] Albumin/Globulin Ratio 1.0 Normal (applies to non-n umeric results) [facility] ([facility]) Total Protein 7.5 GM/DL 6.4-8.2 Normal (applies to non-numeric re sults) [facility]) Albumin 3.7 GM/DL 3.2-5.2 Normal (applies to non-numeric resul ts) [facility] ([facility]) ID Date Data Source [id number] 11/18/2020 06:37:00 PM EST MEDENT ([facility]) Name Value Range Interpretation Code Description Data Flakita e(s) Supporting Document(s) CPK Creatine Phosphokinase 109 U/L 39-308 [place] (applies to non-numeric results) [facility] ([facility]) CK-MB Value Mass 2.5 ng/mL Normal (applies to non-numeric results) [facility] ([facility]) MB/CK Relative Index 2.29 Normal (applies to non-num nancy results) [facility] ([facility]) <content>DIAGNOSIS CRITERIA</content>
<content>MMB ng/ml Relative Index (RI)</content>
<content>NON-AMI < or = 5 N/A</content>
<content>TORIBIO ZONE > 5 < or = 4</content>
<content>AMI > 5 > 4</content>
<content></content> Troponin I Laboratory test result Normal (applies to non-n umeric results) [facility]) <content>Troponin I Reference Interval f or Siemens [place] LOCI:</content>
<content></content>
<content>99th Percentile= 0.00-0.045 ng/ml</content>
<content></content>
<content>Risk Stratification:</content>
<content><= 0.10 ng/ml Decreased Risk for Adverse Clinical</content>
<content>Events.</content>
<content>0.10-1.50 ng/ml Increased Risk for Adverse Clinical</content>
<content>Events. Evaluation of additional</content>
<content>criterion and/or repeat testing in 2-6</content>
<content>hours is suggested to rule out myocardial</content>
<content>damage.</content>
<content>>= 1.50 ng/ml Indicative of Myocardial Injury.</content>
<content></content> ID Date Data Source [id number] 11/18/2020 06:37:00 PM EST [facility] ([facility]) Name Value Range Interpretation Code Description Data Flakita rce(s) Supporting Document(s) Hemoglobin 15.5 g/dL 13.5-17.5 Normal (applies to non-numeric resul ts) [facility] ([facility]) Red Blood Count 4.79 10 4.30-6.10 Normal (applies to non-numeric results) [facility] ([facility]) White Blood Count 7.8 10 4.0-10.0 Normal (applies to non-numeri c results) [facility] ([facility]) Mean Corpuscular Hemoglobin 32.4 pg 27.0-33.0 Norm al (applies to non-numeric results) [facility] ([facility]) Hematocrit 48.0 % 42.0-52.0 Normal (applies to non-numeric resul ts) [facility] ([facility]) Mean Corpuscular Volume 100.2 fl 80.0-96.0 Above high normal [facility] ([facility]) Red Cell Distribution Width 12.9 % 11.5-14.5 Norm al (applies to non-numeric results) [facility] ([facility]) Mean Corpuscular HGB Conc 32.3 g/dL 32.0-36.5 Normal (applies to non-numeric results) [facility] ([facility]) Platelet Count, Automated 330 10 150-450 Normal (applies to non-numeric results) [facility] ([facility]) Lymph % 19.1 % 24.0-44.0 Below low normal MED[facility] ( [facility]) Neutrophils % 69.4 % 36.0-66.0 Above high normal [facility] NT ([facility]) [place] % 10.2 % 0.0-5.0 Above high normal [facility] ([facility]) Eos % 0.1 % 0.0-3.0 Normal (applies to non-numeric resul ts) [facility] ([facility]) Baso % 0.8 % 0.0-1.0 Normal (applies to non-numeric resul ts) [facility] ([facility]) Nucleated Red Blood Cell % 0.0 % 0-0 Normal (applies to n on-numeric results) [facility] ([facility]) Neutrophils # 5.4 10 1.5-8.5 Normal (applies to non-numeric re sults) [facility] ([facility]) Immature Granulocyte % 0.4 % 0-3.0 Normal (applies to non-n umeric results) [facility] ([facility]) Eos # 0.0 10 0.0-0.5 Normal (applies to non-numeric resul ts) [facility] ([facility]) [place] # 0.8 10 0.0-0.8 Normal (applies to non-numeric resul ts) [facility] ([facility]) Lymph # 1.5 10 1.5-5.0 Normal (applies to non-numeric resul ts) [facility] ([facility]) Baso # 0.1 10 0.0-0.2 Normal (applies to non-numeric resul ts) [facility] ([facility]) ID Date Data Source URINE CULTURE 11/12/2020 12:00:00 AM EST eCW1 ([facility]) Name Value Range Interpretation Code Description Data Flakita rce(s) Supporting Document(s) URINE CULTURE eCW1 ([facility]) ID Date Data Source UA URINALYSIS 11/12/2020 12:00:00 AM EST eCW1 ([facility]) Name Value Range Interpretation Code Description Data Flakita rce(s) Supporting Document(s) UA URINALYSIS eCW1 ([facility]) ID Date Data Source [id number] 10/30/2020 12:40:00 PM EST MEDENT ([facility]) Name Value Range Interpretation Code Description Data Flakita rce(s) Supporting Document(s) Laboratory test finding (navigational concept) Laboratory test result [facility] ([facility]) Test: COVID-19 Nasal/Naspharynx Result: NOT DETECTED Reference Units: Not detected Note: Please consider re-collection of a new specimen, if clinically indicated. Note: The COVID-19 assay is under Emergency Use Authorization(EUA) by the U.S. Food and Drug Administration. [facility] is designated as a high complexity laboratory by the Clinical Laboratory Improvement Amendments of 1988(CLIA) and is qualified to perform this test. ASSAY INFORMATION: Real Time RT-PCR ID Date Data Source [id number] 10/30/2020 12:00:00 AM EST [facility] Name Value Range Interpretation Code Description Data Flakita rce(s) Supporting Document(s) 2019-nCoV RNA XXX ILANA+probe-Imp [facility] This lab was ordered by [facility] and reported by [employer] ID Date Data Source [id number] 06/30/2020 11:11:00 AM EDT [facility] ([facility]) Name Value Range Interpretation Code Description Data Flakita rce(s) Supporting Document(s) White Blood Count Laboratory test result 4.3-10.9 [facility] ([facility]) Hemoglobin 16.6 14.0-16.0 [facility] ([facility]) Red Blood Count Laboratory test result 4.70-6.20 [facility] ([facility]) Platelets 279 150-450 [facility] Hematocrit 49.7 41.0-51.0 [facility] ([facility]) ID Date Data Source [id number] 06/30/2020 11:11:00 AM EDT MED[facility] ([facility]) Name Value Range Interpretation Code Description Data Flakita rce(s) Supporting Document(s) Albumin [Mass/volume] in Serum or Plasma 4.7 [facility] ([facility]) Alanine aminotransferase [Enzymatic activity/volume] in Serum or Pl asma 25 [facility] ([facility]) Calcium [Mass/volume] in Serum or Plasma 9.5 [facility] ([facility]) Carbon dioxide, total [Moles/volume] in Serum or Plasma 28 [facility] ([facility]) Alkaline phosphatase [Enzymatic activity/volume] in Serum or Plasma 1 17 [facility] ([facility]) Chloride [Moles/volume] in Serum or Plasma 100 [facility] ([facility]) Protein [Mass/volume] in Serum or Plasma 7.3 [facility] ([facility]) Potassium [Moles/volume] in Serum or Plasma 4.5 [facility] ([facility]) Sodium 141 [facility] Urea nitrogen [Mass/volume] in Serum or Plasma 14 [facility] ([facility]) Aspartate aminotransferase [Enzymatic activity/volume] in Serum or Plasma 27 [facility] ([facility]) Glucose 97 65-110 [facility] Creatinine For GFR 0.8 [facility] ([facility] ID Date Data Source [id number] 06/30/2020 11:11:00 AM EDT MEDENT ([facility]) Name Value Range Interpretation Code Description Data Flakita rce(s) Supporting Document(s) Thyroid Stimulating Hormone 0.89 ME DENT ([facility]) ID Date Data Source [id number] 06/30/2020 11:11:00 AM EDT MED[facility] ([facility]) Name Value Range Interpretation Code Description Data Flakita rce(s) Supporting Document(s) Hemoglobin A1c/Hemoglobin.total in Blood 6.0 [facility] ([facility]) ID Date Data Source [id number] 06/30/2020 09:36:00 AM EDT MED[facility] ([facility]) Name Value Range Interpretation Code Description Data Flakita rce(s) Supporting Document(s) Calcidiol [Mass/volume] in Serum or Plasma 23 ng/mL MED[facility] ([facility]) <content>VITAMIN-D(25HYDROXY)</content>< br/><content>Deficiency: <=20 ng/ml</content>
<content>Insufficiency: 21-29 ng/ml</content>
<content>Preferred level: => 30 ng/ml</content>
<conten t></content> Thyrotropin [Units/volume] in Serum or Plasma 0.89 uIU/mL 0.47-5.01 [facility] ([facility]) Cobalamin (Vitamin B12) [Mass/volume] in Serum or Plasma 1084 pg/mL 232-1245 [facility] ([facility]) ID Date Data Source [id number] 06/30/2020 09:36:00 AM EDT MED[facility] ([facility]) Name Value Range Interpretation Code Description Data Flakita rce(s) Supporting Document(s) Triglycerides 88 mg/dL 35-160 MED[facility] ([facility]) Cholesterol 202 mg/dL 131-200 Above high normal [facility] ([facility]) Cve Panel Laboratory test result [facility] ([facility]) LIPID PANEL HDL 69 mg/dL 29-86 MED[facility] ([facility]) LDL 117 mg/dL 65-175 MED[facility] ([facility]) Risk Factor 2.9 3.4-4.9 Below low normal MED[facility] ([facility]) LDL/HDL 1.70 1.00-3.55 MED[facility] ([facility]) CVE RISK CHOL/HDL LDL/HDL MEN: 1/2 AVERAGE 3.43 1.00 AVERAGE 4.97 3.55 2X AVERAGE 9.55 6.25 3X AVERAGE 23.99 7.99 WOMEN: 1/2 AVERAGE 3.27 1.47 AVERAGE 4.44 3.22 2X AVERAGE 7.05 5.03 3X AVERAGE 11.04 6.14 ID Date Data Source [id number] 06/30/2020 09:36:00 AM EDT MED[facility] ([facility]) Name Value Range Interpretation Code Description Data Flakita rce(s) Supporting Document(s) Comprehensive Metabo Laboratory test result MED[facility] ([facility]) COMPREHENSIVE METABOLIC PANEL Chloride 100 meq/L 98-107 MED[facility] ([facility]) Potassium 4.5 meq/L 3.6-5.0 [facility] ([facility]) Sodium 141 meq/L 134-153 MED[facility] ([facility]) Co2 28 meq/L 22-30 [facility] ([facility]) BUN 11 mg/dL 7-21 MED[facility] ([facility]) Glucose 97 mg/dL 65-110 MED[facility] ([facility]) Creatinine 0.8 mg/dL 0.7-1.5 MED[facility] ([facility]) BUN/Creat 14 8-27 MED[facility] ([facility]) Total Protein 7.3 g/dL 6.3-8.2 MED[facility] ([facility]) A/G Ratio 1.8 0.8-2.0 [facility] ([facility]) Globulin 2.6 GM/DL 2.4-3.2 [facility] ([facility]) Albumin 4.7 g/dL 3.9-5.0 [facility] ([facility]) Calcium 9.5 mg/dL 8.4-10.2 [facility] ([facility]) Alkaline Phos 117 U/L 38-126 MED[facility] ([facility]) Total Bili 0.7 mg/dL 0.2-1.3 MED[facility] ([facility]) Anion Gap 13.0 mmol/L 8.0-16.0 MEDENT ([facility]) Sgot/Ast 27 U/L 5-40 MED[facility] ([facility]) SGPT/Alt 25 U/L 7-56 [facility] ([facility]) Afr Amer GFR Laboratory test result [facility] ([facility]) Male GFR Interprentation 20-49 yrs >60 mL/min [...] >32 mL/min Normal Age 60 yrs MEDENT ([facility]) Non-Aa GFR Laboratory test result [facility] ([facility]) ID Date Data Source [id number] 06/30/2020 09:36:00 AM EDT MED[facility] ([facility]) Name Value Range Interpretation Code Description Data Flakita rce(s) Supporting Document(s) CBC W/Automated Diff Laboratory test result [facility] ([facility]) COMPLETE BLOOD COUNT WBC 6.7 10^3/uL 4.2-11.0 [facility] ([facility]) Hematocrit 49.7 % 41.0-51.0 [facility] ([facility]) RBC 5.00 10^6/uL 4.50-6.30 [facility] ([facility]) Hemoglobin 16.6 g/dL 14.0-16.0 Above high normal [facility] ([facility]) MCH 33.2 pg 27.0-34.0 [facility] ([facility]) MCHC 33.4 g/dL 31.0-36.0 [facility] ([facility]) MCV 99.4 fL 80.0-94.0 Above high normal [facility] ([facility]) RDW 13.3 % 11.5-14.8 [facility] ([facility]) Platelets 279 10^3/uL 150-450 MED[facility] ([facility]) MPV 8.8 fL 7.4-10.4 [facility] ([facility]) Lymph 18.4 % 25.0-40.0 Below low normal [facility] ( [facility]) Neut 69.6 % 37.0-80.0 [facility] ([facility]) Eos 2.1 % 0.0-7.0 [facility] ([facility]) [place] 8.8 % 3.0-8.0 Above high normal MED[facility] ([facility]) Baso 1.0 % 0.0-2.0 [facility] ([facility]) %Ig 0.1 % 0.0-0.0 Above high normal [facility] ([facility]) %NRBC 0.0 % 0.0-0.0 [facility] ([facility]) #Neut 4.64 10^3/uL 2.00-6.90 MED[facility] ([facility]) #[place] 0.59 10^3/uL 0.00-0.90 [facility] ([facility]) #Eos 0.14 10^3/uL 0.00-0.70 [facility] ([facility]) #Lymph 1.23 10^3/uL 0.60-3.40 [facility] ([facility]) #Ig 0.01 10^3/uL 0.00-0.10 [facility] ([facility]) #Baso 0.07 10^3/uL 0.00-0.20 [facility] ([facility]) #NRBC 0.00 10^3/uL 0.00-0.00 [facility] ([facility]) Manual Diff Laboratory test result M [facility] ([facility]) %Lymph 18 % 25-40 Below low normal [facility] ([facility]) Segs 71 % 37-80 [facility] ([facility]) %Eos 1 % 0-7 [facility] ([facility]) RBC Morph Laboratory test result [facility] ([facility]) %[place] 10 % 3-8 Above high normal [facility] ([facility]) ID Date Data Source [id number] 06/30/2020 09:36:00 AM EDT MED[facility] ([facility]) Name Value Range Interpretation Code Description Data Flakita rce(s) Supporting Document(s) Hemoglobin A1c/Hemoglobin.total in Blood 6.0 % 4.4-6.1 [facility] ([facility]) {A1] {HB] ID Date Data Source [id number] 06/30/2020 09:36:00 AM EDT [facility] ([facility]) Name Value Range Interpretation Code Description Data Flakita rce(s) Supporting Document(s) Lab - Specimen Rejec Laboratory test result [facility] ([facility]) Specimen Integrity/Specimen Recollection The patient sample needs to be resubmitted for the following reason: Test(s) Ordered Laboratory test result [facility] ([facility]) Rejection Reason Laboratory test result [facility] ([facility]) { One or more of the tests you ordered cannot be performed. { Please recollect, reorder, and resubmit if needed. ID Date Data Source [id number] 06/30/2020 09:36:00 AM EDT [facility] Network) Name Value Range Interpretation Code Description Data Flakita rce(s) Supporting Document(s) Hemoglobin A1c/Hemoglobin.total in Blood Laboratory test result [facility] ([facility]) Thyrotropin [Units/volume] in Serum or Plasma Laboratory test result [facility] ([facility]) Cobalamin (Vitamin B12) [Mass/volume] in Serum or Plasma Lab oratory test result [facility] ([facility]) Calcidiol [Mass/volume] in Serum or Plasma Laboratory test result [facility] ([facility]) Folate [Mass/volume] in Red Blood Cells Laboratory test result [facility] ([facility]) ID Date Data Source [id number] 06/30/2020 04:12:00 PM EDT [facility] Name Value Range Interpretation Code Description Data Flakita rce(s) Supporting Document(s) Cobalamin (Vitamin B12) [Mass/volume] in Serum or Plasma 1084 PG /ML 232 - 1245 [facility] ID Date Data Source [id number] 06/30/2020 04:12:00 PM EDT [facility] Name Value Range Interpretation Code Description Data Flakita rce(s) Supporting Document(s) Calcidiol [Moles/volume] in Serum or Plasma 23 NG/ML [facility] VITAMIN-D(2 5HYDROXY) Deficiency: <=20 ng/ml Insufficiency: 21-29 ng/ml Preferred level: => 30 ng/ml ID Date Data Source [id number] 06/30/2020 04:12:00 PM EDT [facility] Name Value Range Interpretation Code Description Data Flakita rce(s) Supporting Document(s) Thyrotropin [Units/volume] in Serum or Plasma by Detec tion limit <= 0.05 mIU/L 0.89 uIU/mL 0.47 - 5.01 [facility] ID Date Data Source [id number] 06/30/2020 03:52:00 PM EDT [facility] Name Value Range Interpretation Code Description Data Flakita rce(s) Supporting Document(s) CVE PANEL [facility] LIPID PANEL Cholesterol [Mass/volume] in Serum or Plasma 202 MG/DL 131 - 200 H [facility] Deprecated Triglyceride [Mass/volume] in Serum or Plasma 88 MG/DL 3 5 - 160 [facility] HDL 69 MG/DL 29 - 86 [facility] Cholesterol in LDL [Mass/volume] in Serum or Plasma by Direc t assay 117 mg/dL 65 - 175 [facility] Cholesterol.total/Cholesterol in HDL [Mass Ratio] in Serum o r Plasma 2.9 3.4 - 4.9 L [facility] LDL/HDL 1.70 1.00 - 3.55 [facility] ital CVE RISK CHOL/HDL LDL/HDLMEN: 1/2 AVERAGE 3.43 1.00 AVERAGE 4.97 3.55 2X AVERAGE 9.55 6.25 3X AVERAGE 23.99 7.99WOMEN: 1/2 AVERAGE 3.27 1.47 AVERAGE 4.44 3.22 2X AVERAGE 7.05 5.03 3X AVERAGE 11.04 6.14 ID Date Data Source [id number] 06/30/2020 03:46:00 PM EDT [facility] Name Value Range Interpretation Code Description Data Flakita rce(s) Supporting Document(s) COMPREHENSIVE METABOLIC PANEL [facility] COMPREHENSIVE METABOLIC PANEL Sodium [Moles/volume] in Serum or Plasma 141 mEq/L 134 - 153 [facility] Potassium [Moles/volume] in Serum or Plasma 4.5 mEq/L 3.6 - 5.0 [facility] Chloride [Moles/volume] in Serum or Plasma 100 mEq/L 98 - 107 [facility] Carbon dioxide, total [Moles/volume] in Serum or Plasma 28 MEQ/L 22 - 30 [facility] Glucose [Mass/volume] in Serum or Plasma 97 MG/DL 65 - 110 [facility] BUN 11 MG/DL 7 - 21 [facility] Creatinine [Mass/volume] in Serum or Plasma 0.8 MG/DL 0.7 - 1.5 [facility] BUN/CREAT 14 8 - 27 [facility] Protein [Mass/volume] in Serum or Plasma 7.3 G/DL 6.3 - 8.2 [facility] Albumin [Mass/volume] in Serum or Plasma 4.7 G/DL 3.9 - 5.0 [facility] Globulin [Mass/volume] in Serum by calculation 2.6 GM/DL 2.4 - 3.2 [facility] A/G RATIO 1.8 0.8 - 2.0 [facility] Calcium [Mass/volume] in Serum or Plasma 9.5 MG/DL 8.4 - 10.2 [facility] Bilirubin.total [Mass/volume] in Serum or Plasma 0.7 MG/DL 0.2 - 1.3 [facility] Alkaline phosphatase [Enzymatic activity/volume] in Serum or Plasma 117 U/L 38 - 126 [facility] Aspartate aminotransferase [Enzymatic activity/volume] in Serum or Plasma 27 U/L 5 - 40 [facility] Alanine aminotransferase [Enzymatic activity/volume] in Seru m or Plasma 25 U/L 7 - 56 [facility] Anion gap 3 in Serum or Plasma 13.0 mmol/L 8.0 - 16.0 [facility] AGE 60 yrs [facility] NON-AA GFR >60 mL/min [facility] AFR AMER GFR >60 mL/min [facility] Male GFR In terprentation 20-49 [...] >32 mL/min Normal ID Date Data Source [id number] 06/30/2020 01:48:00 PM EDT [facility] Name Value Range Interpretation Code Description Data Flakita rce(s) Supporting Document(s) CBC W/AUTOMATED DIFF [facility] COMPLETE BLOOD COUNT Leukocytes [#/volume] in Blood by Automated count 6.7 10^3/uL 4.2 - 1 1.0 [facility] Erythrocytes [#/volume] in Blood by Automated count 5.00 10^6/uL 4. 50 - 6.30 [facility] Hemoglobin [Mass/volume] in Blood 16.6 g/dL 14.0 - 16.0 H [facility] Hematocrit [Volume Fraction] of Blood by Automated count 49.7 % 4 1.0 - 51.0 [facility] Erythrocyte mean corpuscular volume [Entitic volume] by Auto mated count 99.4 fL 80.0 - 94.0 H [facility] Erythrocyte mean corpuscular hemoglobin [Entitic mass] by Automated count 33.2 pg 27.0 - 34.0 [facility] Erythrocyte mean corpuscular hemoglobin concentration [Mass/volume] by Automated count 33.4 g/dL 31.0 - 36.0 [facility] Erythrocyte distribution width [Ratio] by Automated count 13.3 % 11.5 - 14.8 [facility] Platelets [#/volume] in Blood by Automated count 279 10^3/uL 150 - 45 0 [facility] Platelet mean volume [Entitic volume] in Blood by Automated count 8.8 fL 7.4 - 10.4 [facility] Neutrophils/100 leukocytes in Blood by Automated count 69.6 % 37. 0 - 80.0 [facility] Lymphocytes/100 leukocytes in Blood by Manual count 18.4 % 25.0 - 40.0 L [facility] Monocytes/100 leukocytes in Blood by Automated count 8.8 % 3.0 - 8.0 H [facility] Eosinophils/100 leukocytes in Blood by Automated count 2.1 % 0.0 - 7.0 [facility] Basophils/100 leukocytes in Blood by Automated count 1.0 % 0.0 - 2.0 [facility] %IG 0.1 % 0.0 - 0.0 H [facility] %NRBC 0.0 % 0.0 - 0.0 [facility] Neutrophils [#/volume] in Blood by Automated count 4.64 10^3/uL 2.00 - 6.90 [facility] Lymphocytes [#/volume] in Blood by Automated count 1.23 10^3/uL 0.60 - 3.40 [facility] Monocytes [#/volume] in Blood by Automated count 0.59 10^3/uL 0.00 - 0.90 [facility] Eosinophils [#/volume] in Blood by Automated count 0.14 10^3/uL 0.00 - 0.70 [facility] Basophils [#/volume] in Blood by Automated count 0.07 10^3/uL 0.00 - 0.20 [facility] #IG 0.01 10^3/uL 0.00 - 0.10 [facility] #NRBC 0.00 10^3/uL 0.00 - 0.00 [facility] MANUAL DIFF SEE BELOW [facility] Segmented neutrophils/100 leukocytes in Blood by Manual count 71 % 37 - 80 [facility] %LYMPH 18 % 25 - 40 [facility] %MONO 10 % 3 - 8 [facility] %EOS 1 % 0 - 7 [facility] RBC MORPH MORPH IS NORMAL [facility] ID Date Data Source [id number] 06/30/2020 01:27:00 PM EDT [facility] Name Value Range Interpretation Code Description Data Flakita rce(s) Supporting Document(s) Hemoglobin A1c/Hemoglobin.total in Blood 6.0 % 4.4 - 6.1 [facility] {A1]{HB] ID Date Data Source [id number] 06/30/2020 12:52:00 PM EDT [facility] Name Value Range Interpretation Code Description Data Flakita rce(s) Supporting Document(s) LAB - SPECIMEN REJECTION [facility] Specimen Integrity/Specimen Recollection The patient sample needs to be resubmitted for the following reason: Test(s) Ordered FOLIC ACID RBC [facility] Rejection Reason QNS [facility] { One or more of the tests you ordered cannot be performed.{ Please recollect, reorder, and resubmit if needed. Procedure Social History Code Duration Value Status Description Data Source(s ) Smoking 11/12/2020 12:00:00 AM EST Former Smoker completed Former Smoker eCW1 ([facility]) Smoking 09/22/2020 12:00:00 AM EST - 11/21/2018 12:00:00 AM EST Patient is a former smoker completed Patient is a former smoker [facility] ([facility]) Vital Signs ID Date Data Source UNK Name Value Range Interpretation Code Description Data Source(s) Body surface area Derived from formula 1.51 m2 1.51 m2 [facility] Body weight 49.442 kg 49.[address] [facility] ([facility]) [place] body weight 130 [lb_av] 130 [lb_av[facility] Body mass index (BMI) [Ratio] 18.7 kg/m2 18.7 k g/m2 [facility] ([facility]) Body weight 109.00 [lb_av] 109.00 [lb_av] [facility] T ([facility]) Body height 64 [in_i] 64 [in_i] [facility] ([facility]) 5'4" Diastolic blood pressure 68 mm[Hg] 68 mm[Hg] [facility] ([facility], ) Systolic blood pressure 128 mm[Hg] 128 mm[Hg] M EDENT ([facility], ) Diastolic blood pressure 82 mm[Hg] 82 mm[Hg] eCW1 ([facility]) Systolic blood pressure 122 mm[Hg] 122 mm[Hg] e CW1 ([facility]) Body temperature 98.2 [degF] 98.2 [degF] eCW1 ( [facility]) Respiratory rate 20 /min 20 /min eCW1 ([facility]) Heart rate 86 /min 86 /min eCW1 ([facility]) Body mass index (BMI) [Ratio] 0.13 kg/m2 0.13 k g/m2 W1 ([facility]) Body height [in_i] eCW1 ([facility]) Body weight 110 [lb_av] 110 [lb_av] eCW1 ([facility]) Body surface area Derived from formula 1.54 m2 1.54 m2 [facility] ([facility]) Body mass index (BMI) [Ratio] 19.4 kg/m2 19.4 k g/m2 [facility] ([facility]) Body height 64 [in_i] 64 [in_i] [facility] ([facility]) 5'4" Body weight 51.370 kg 51.370 kg [facility] ([facility]) Body weight 113.25 [lb_av] 113.25 [lb_av] [facility] T ([facility]) Oxygen saturation in Arterial blood by Pulse oximetry 96 % 96 % [facility] ([facility]) Respiratory rate 16 /min 16 /min [facility] ( [facility]) Body temperature 97.1 [degF] 97.1 [degF] [facility] ([facility]) Heart rate 100 /min 100 /min [facility] ([facility]) Diastolic blood pressure 80 mm[Hg] 80 mm[Hg] [facility] ([facility]) Systolic blood pressure 122 mm[Hg] 122 mm[Hg] M EDENT ([facility]) Body surface area Derived from formula 1.54 m2 1.[address] [facility] ([facility]) Body weight 51.370 kg 51.[address] [facility] ([facility]) [place] body weight 130 [lb_av] 130 [lb_av] [facility] T ([facility]) Body mass index (BMI) [Ratio] 19.4 kg/m2 19.4 k g/m2 [facility] ([facility]) Body weight 113.25 [lb_av] 113.25 [lb_av] [facility] T ([facility]) Body height 64 [in_i] 64 [in_i] [facility] ([facility]) 5'4" Body temperature 99.1 [degF] 99.1 [degF] [facility] ([facility]) Oxygen saturation in Arterial blood by Pulse oximetry 93 % 93 % [facility] ([facility]) Heart rate 96 /min 96 /min [facility] ([facility]) Diastolic blood pressure 74 mm[Hg] 74 mm[Hg] [facility] ([facility]) Systolic blood pressure 122 mm[Hg] 122 mm[Hg] [facility] Body surface area Derived from formula 1.50 m2 1.[address] [facility] ([facility]) Body mass index (BMI) [Ratio] 18.3 kg/m2 18.3 k g/m2 [facility] ([facility]) Body height 64 [in_i] 64 [in_i] [facility] ([facility]) 5'4" Body weight 48.252 kg 48.[address] [facility] ([facility]) Body weight 106.38 [lb_av] 106.38 [lb_av] [facility] T ([facility]) Oxygen saturation in Arterial blood by Pulse oximetry 95 % 95 % [facility] ([facility]) Respiratory rate 16 /min 16 /min [facility] ( [facility]) Body temperature 97.2 [degF] 97.2 [degF] [facility] ([facility]) Heart rate 90 /min 90 /min [facility] ([facility]) Diastolic blood pressure 64 mm[Hg] 64 mm[Hg] [facility] ([facility]) Systolic blood pressure 112 mm[Hg] 112 mm[Hg] M [facility] ([facility]) Body surface area 1.50 m2 1.[address] [facility] ([facility]) Body weight 51.313 kg 51.[address] [facility] ([facility]) Body mass index (BMI) [Ratio] 19.4 kg/m2 19.4 k g/m2 [facility] ([facility], ) Body weight 113.12 [lb_av] 113.12 [lb_av] [facility] Body height 64 [in_i] 64 [in_i] [facility] ([facility]) 5'4" Body temperature 98.3 [degF] 98.3 [degF] [facility] ([facility]) Oxygen saturation in Arterial blood by Pulse oximetry 93 % 93 % [facility] ([facility]) Heart rate 103 /min 103 /min [facility] ([facility]) Diastolic blood pressure 90 mm[Hg] 90 mm[Hg] [facility] ([facility]) Systolic blood pressure 138 mm[Hg] 138 mm[Hg] M [facility] ([facility], ) Body height 64 [in_i] 64 [in_i] [facility] ([facility]) 5'4" Patient Treatment Plan of Care Planned Activity Planned Date Details Description Data Source (s) Sulfamethoxazole 800 MG / Trimethoprim 160 MG Oral Tab let 11/12/2020 12:00:00 AM EST eCW1 ([facility])
[2020-12-19 14:44] VITALS: BP 106/67
[2020-12-29] MEDS ORDERED: TREL1AER (09:22)
[2020-12-29] MEDS ORDERED: CHAR280C PO (09:22)
[2020-12-29] MEDS ORDERED: SIMV20TA22 (09:22)
[2020-12-29] MEDS ORDERED: ASPI-523 (09:23)
[2020-12-29] MEDS ORDERED: BUSP1TAB (09:23)
[2020-12-29] MEDS ORDERED: CETI5SOL3 PO (09:23)
[2020-12-29] MEDS ORDERED: DRIS50003 PO (09:24)
== END 2020-12-19 14:53 | disposition home or self-care (01) ==
LOC: M ED 11:20
DX: J06.9 Acute upper respiratory infection, unspecified (principal); Z20.822 Contact with and (suspected) exposure to COVID-19; R51.9 Headache, unspecified; R43.9 Unspecified disturbances of smell and taste; R68.83 Chills (without fever); I25.2 Old myocardial infarction; J45.909 Unspecified asthma, uncomplicated; J44.9 Chronic obstructive pulmonary disease, unspecified; K21.9 Gastro-esophageal reflux disease without esophagitis; K57.92 Diverticulitis of intestine, part unspecified, without perforation or abscess without bleeding; A69.20 Lyme disease, unspecified; F41.9 Anxiety disorder, unspecified; F32.9 Major depressive disorder, single episode, unspecified; J43.9 Emphysema, unspecified; Z87.891 Personal history of nicotine dependence; Z79.899 Other long term (current) drug therapy
CPT/HCPCS: 71046; 87804; 99283; U0003

== ENCOUNTER → 2020-12-22 | Outpatient (CLI) | payer BC ==
[~2020-12-22] MED LIST changes: +ASPI-523; +BUSP1TAB; +CETI5SOL3 PO; +CHAR280C PO; +DRIS50003 PO; +SIMV20TA22; +TREL1AER
== END ==
LOC: M LAB 12:08
PROVIDERS: ATTEND Nurse Practitioner Family
DX: Z12.5 Encounter for screening for malignant neoplasm of prostate (principal)
CPT/HCPCS: 36415; G0103

== ENCOUNTER → 2020-12-28 | Outpatient (CLI) | payer BC | LOC: M LABSMTC 08:00 | PROVIDERS: ATTEND Anesthesiology | DX: Z01.812 Encounter for preprocedural laboratory examination (principal); Z20.822 Contact with and (suspected) exposure to COVID-19 ==

== ENCOUNTER 2021-01-02 09:33 | Day surgery (SDC) | payer BC ==
[~2021-01-02] VITALS: Ht 162.6 cm; Wt 47.6 kg
[~2021-01-02 09:33] MED LIST changes: +LIDOCAINE 2% 100MG/5ML SDV (FOR ANES.) As Ordered ONE; +fentaNYL 100 MCG/2 ML INJECTION (J3010) As Ordered ONE; +propofoL 200 MG/20 ML VIAL As Ordered ONE
--- OUTSIDE RECORDS SUMMARY | 2021-01-02 09:36 | CCD | Continuity of Care Document ---
Author Author Toni JAIME PA-C Organization Unknown Address [address] [place] [address] Phone [phone] Care Team Providers Care Medical Reception Name Role Phone [facility] AUTM [facility] AUTM [phone] Rosmery Jaime PA-C AUTM [phone] Jigar Mota MD AUTM Herminio Abel MD AUTM [phone] [facility] AUTM [phone] Problems Active Problems Provider Date Obstructive sleep [...] MD 10/06/2020 Vitamin D3 Ultra Potency 1.25mg (00582 [address]) Tablets 1 tab by mouth every [...] archris Hightower MD 04/09/2019 Simvastatin 20mg Tablets take 1 tablet by mouth every day 90tabs E78.5 Jose Manuel Hightower MD 02/12/2019 Tamsulosin HCL 0.4mg Capsules 1 tab by mouth every day 90caps Jose Manuel Hightower MD Apple Cider Vinegar Tablets Unknown Levalbuterol Tartrate [...] Date Facility Test Result H/L Range Note Laboratory test finding 12/22/2020 [facility] PSA Screening 1.04 NG/ML Normal < 4.00 1 CBC With Differential 11/18/2020 [facility] White Blood Count 7.8 10 Normal [...] 36.0-66.0 Lymph % 19.1 % Low 24.0-44.0 [place] % 10.2 % High 0.0-5.0 Eos % 0.1 % Normal 0.0-3.0 Baso % 0.8 % Normal 0.0-1.0 Immature Granulocyte % 0.4 % Normal 0-3.0 Nucleated Red Blood Cell % 0.0 % Normal 0-0 Neutrophils # 5.4 10 Normal 1.5-8.5 Lymph # 1.5 10 Normal 1.5-5.0 [place] # 0.8 10 Normal 0.0-0.8 Eos # 0.0 10 Normal 0.0-0.5 Baso # 0.1 10 Normal 0.0-0.2 Cardiac Marker Panel 11/18/2020 [facility] CPK Creatine Phosphokinase 109 U/L Normal 39-308 CK-MB Value Mass 2.5 NG/ML Normal <3.6 MB/CK Relative Index 2.29 Normal < Or =4 2 Troponin I < 0.02 NG/ML Normal < 0.10 3 Liver Profile 11/18/2020 [facility] Ast/Sgot 20 U/L Normal 7-37 Alt/SGPT 22 U/L Normal 12-78 Alkaline Phosphatase 121 U/L High 45-117 Bilirubin,Total 0.5 mg/dL Normal 0.2-1.0 Bilirubin,Direct 0.2 mg/dL Normal 0.0-0.2 Total Protein 7.5 GM/DL Normal 6.4-8.2 Albumin 3.7 GM/DL Normal 3.2-5.2 Albumin/Globulin Ratio 1.0 Normal Basic Metabolic Profile 11/18/2020 [facility] Glucose, Fasting 98 mg/dL Normal 70-100 Blood Urea Nitrogen 8 mg/dL Normal 7-18 Creatinine For GFR 0.76 mg/dL Normal 0.70-1.30 Glomerular Filtration Rate > 60.0 Normal >56 4 Sodium Level 139 mEq/L Normal 136-145 Potassium Serum 4.4 mEq/L Normal 3.5-5.1 Chloride Level 102 mEq/L Normal 98-107 Carbon Dioxide Level 33 mEq/L High 21-32 Anion Gap 4 mEq/L Low 8-16 Calcium Level 9.3 mg/dL Normal 8.5-10.1 Coronavirus 2019 ([facility]) 10/30/2020 [facility] Coronavirus 2019 ([facility]) <SEE NOTE> 5 Lab - Unable To Process Specimen 06/30/2020 [facility] Lab - Specimen Rejec (SEE NOTE) 6 Test(s) Ordered FOLIC ACID RBC Rejection Reason QNS 7 Laboratory test finding 06/30/2020 [facility] l Hgba1c 6.0 % 4.4 - 6.1 8 CBC W/Automated Diff 06/30/2020 [facility] CBC W/Automated Diff (SEE NOTE) 9 WBC 6.7 10^3/uL 4.2 - 11.0 RBC [...] Lymph 18.4 % Low 25.0 - 40.0 [place] 8.8 % High 3.0 - 8.0 Eos 2.1 % 0.0 - 7.0 Baso 1.0 % 0.0 - 2.0 %Ig 0.1 % High 0.0 - 0.0 %NRBC 0.0 % 0.0 - 0.0 #Neut 4.64 10^3/uL 2.00 - 6.90 #Lymph 1.23 10^3/uL 0.60 - 3.40 #[place] 0.59 10^3/uL 0.00 - 0.90 #Eos 0.14 10^3/uL 0.00 - 0.70 #Baso 0.07 10^3/uL 0.00 - 0.20 #Ig 0.01 10^3/uL 0.00 - 0.10 #NRBC 0.00 10^3/uL 0.00 - 0.00 Manual Diff SEE BELOW Segs 71 % 37 - 80 %Lymph 18 % Low 25 - 40 %[place] 10 % High 3 - 8 %Eos 1 % 0 - 7 RBC Morph MORPH IS NORMAL Comprehensive Metabolic Panel 06/30/2020 [facility] Comprehensive Metabo (SEE NOTE) 10 Sodium 141 mEq/L 134 - 153 Potassium [...] >60 mL/min Afr Amer GFR >60 mL/min 11 Cve Panel 06/30/2020 [facility] Cve Panel (SEE NOTE) 12 Cholesterol 202 mg/dL High 131 - 200 Triglycerides 88 mg/dL 35 - 160 HDL 69 mg/dL 29 - 86 LDL 117 mg/dL 65 - 175 Risk Factor 2.9 Low 3.4 - 4.9 LDL/HDL 1.70 1.00 - 3.55 13 Laboratory test finding 06/30/2020 [facility] l TSH Highly Sensitive 0.89 uIU/mL 0.47 - 5.01 Vitamin D (25-Hydroxy) 23 NG/ML 14 Vitamin B12 Serum 1084 pg/mL 232 - 1245 1 The PSA assay is performed o n the Siemens [place] analyzer by LOCI sandwich chemiluminescent immunoassay and should not be compared interchangeably with other methods. It should not be used alone as a screening test or diagnosis for the presence or absence of malignant disease. Predictions of disease recurrence should not be based solely on values obtained from serial patient serum values. 2 DIAGNOSIS CRITERIA MMB ng/ml Relative Index (RI) NON-AMI < or = 5 N/A TORIBIO ZONE > 5 < or = 4 AMI > 5 > 4 3 Troponin I Reference Interva l for Siemens [place] LOCI: 99th Percentile= 0.00-0.045 ng/ml Risk Stratification: <= 0.10 ng/ml Decreased Risk for Adverse Clinical Events. 0.10-1.50 ng/ml Increased Risk for Adv erse Clinical Events. Evaluation of additional criterion and/or repeat testing in 2-6 hours is suggested to rule out myocardial damage. >= 1.50 ng/ml Indicative of Myocardial Injury. 4 Units are mL/min/1.73 m2 Chronic Kidney Disease Staging per NKF: Stage I & II GFR >=60 Normal to Mildly Decreased Stage III GFR 30-59 Moderately Decreased Stage IV GFR 15-29 Severely Decreased Stage V GFR <15 Very Little GFR Left ESRD GFR <15 on WET ROASTER 5 Test: COVID-19 Nasal/Naspharynx Result: NOT DETECTED Reference Units: Not detected Note: Please consider re-collection of a new specimen, if clinically indicated. Note: The COVID-19 assay is under Emergency Use Authorization(EUA) by the U.S. Food and Drug Administration. [facility] is designated as a high complexity laboratory by the Clinical Laboratory Improvement Amendments of 1988(CLIA) and is qualified to perform this test. ASSAY INFORMATION: Real Time RT-PCR 6 Specimen Integrity/Specimen Recollection The patient sample needs to be resubmitted for the following reason: 7 { One or more of th e tests you ordered cannot be performed. { Please recollect, reorder, and resubmit if needed. 8 {A1] {HB] 9 COMPLETE BLOOD COUNT 10 COMPREHENSIVE METABOLIC PANE L 11 Male GFR Interprentation 20-49 yrs >60 mL/min Normal 50-59 yrs >56 mL/min Normal 60-69 yrs >49 mL/min Normal 70-79yrs >42 mL/min Normal 80 and above >35 mL/min Normal Female GFR Interpretation 20-39 yrs >60 mL/min Normal 40-49 yrs >58 mL/min Normal 50-59 yrs >51 mL/min Normal 60-69 yrs >45 mL/min Normal 70-79 yrs >39 mL/min Normal 80 and above >32 mL/min Normal 12 LIPID PANEL 13 CVE RISK CHOL/HDL LDL/HDL MEN: 1/2 AVERAGE 3.43 1.00 AVERAGE 4.97 3.55 2X AVERAGE 9.55 6.25 3X AVERAGE 23.99 7.99 WOMEN: 1/2 AVERAGE 3.27 1.47 AVERAGE 4.44 3.22 2X AVERAGE 7.05 5.03 3X AVERAGE 11.04 6.14 14 VITAMIN-D(25HYDROXY) Deficiency: <=20 ng/ml Insufficiency: 21-29 ng/ml [...] PA-C 06/30/2020 R14.0 Abdominal distension (gaseous) E jessetri Jaime PA-C 06/30/2020 G47.33 Obstructive sleep apnea (adult) (pediatric) Rosmery Jaime PA-C 06/30/2020 R23.3 Spontaneous ecchymoses Rosmery hale PA-C 06/30/2020 J44.9 Chronic obstructive pulmonary di sease, unspecified Rosmery Jaime PA-C Plan of Treatment Future Appointment(s):* 01/05/2021 9:00 am - Rosmery Jaime PA-C at [facility] Functional Status Description No Information Available Mental Status Description No Information Available Referrals Refer to Dr Reason for Referral Status Appt Date [facility] Urology 60 year old male with BPH. Please evalua te and treat. Thank you. Patient Notified 11/12/2020 [id number] [facility] [address] [place] [address] [phone] Herminio Abel MD 60 year old male with histor y of weight loss, abdominal discomfort, reflux, excessive bloating, and gas. History of colonic polyps. Last endoscopy/colonoscopy at [facility] 07/19/2016. Please evaluate and treat. Closed 12/16/[address] [address] [phone]
--- OUTSIDE RECORDS SUMMARY | 2021-01-02 09:36 | CCD ---
Author Author [facility] Organization [facility] Address Unknown Phone Unavailable Care Team Providers Care Security Controls Assessor Name Role Phone Jadon Galvez Unavailable PROBLEMS Type Condition ICD9-CM Code [id number] Code Onset Dates Condition S tatus W/U Status Risk SNOMED Code Notes Problem Benign prostatic hyperplasia with lower urinary tract symptoms N40.1 Active confirmed 30845814984081 Problem Balanitis N48.1 Active confirmed [id number] ALLERGIES No Known Allergies ENCOUNTERS from 1960 to 2020-12-22 Encounter Location Date Provider Diagnosis [facility] [address] [place] [address] Dec Jadon Galvez IMMUNIZATIONS No Information SOCIAL HISTORY Tobacco Use: [...] REASON FOR REFERRAL No Information VITAL SIGNS No information MEDICATIONS Medication SIG (Take, Route, Frequency, Duration) Notes Start Da te End Date Status Levalbuterol Tartrate 45 MCG/ACT 1 puff as needed Inhalation every 4 hrs Active Omeprazole 40 MG 1 capsule Orally Once a day Not-Taking Ketoconazole 2 % 1 application to affected ar ea Externally Once a day for 30 days Oct, Not-Taking Mucinex 600 MG 1 tablet as needed Orally every 12 hrs Not-Taking Albuterol-Ipratropium 2.5-0.5 MG/3ML 3 ml Inhalation every 6 hrs Active Flonase Allergy Relief 50 MCG/ACT 1 spray in each nostril Nasall y Once a day Not-Taking Apple Cider Vinegar Activ e Multi Complete - Orally Not-Taki ng Cipro 500 MG 1 tablet Orally ONE HOUR PRIOR TO PROCEDURE for 1 dose(s) Jan, Not-Taking Flomax 0.4 MG 1 capsule Orally Once a day for 90 day(s) Active Ketoconazole 2 % 1 application to affected [...] Active Vitamin D3 Ultra Potency 1.25 MG (56080 UT) 1 tablet Orally for 30 da y(s) Active Anoro Ellipta 62.5-25 MCG/INH 1 puff Inhalation Once a day Not-Taking Ginseng Active Pantoprazole Sodium 40 MG 1 tablet Orally Once a day for 30 day(s) Active Aspir-Low 81 MG 1 tablet Orally Once a day for 30 day(s) Active Clotrimazole 10 MG 1 kaylee Mouth/Throat Five times a day for 14 day( s) Active Lidocaine HCl Jelly HALF-WAY 2 % 5 ML1 application to affec chiquis area as needed Intravesically TIME AT CYSTOSCOPY for 1 dose(s) Feb, Not-Taking BusPIRone HCl 7.5 MG 1 tablet Orally Twice a day Not-Taking Pepcid 20 MG 1 tablet at bedtime as needed Orally Once a day for 30 day(s) Active Simethicone Active PROCEDURES No Information RESULTS No Results REASON FOR VISIT refill Flomax MEDICAL (GENERAL) HISTORY Type Description Date Medical History COPD Medical History GERD Surgical History colonoscopy 2016 Surgical History hemorroidectomy Surgical History tonsil removed at 13 Goals Section No Information Health Concerns No Information MEDICAL EQUIPMENT No Information MENTAL STATUS No Information FUNCTIONAL STATUS No Information ASSESSMENTS No Information PLAN OF TREATMENT Medication Medication Name Sig Start Date Stop Date Sulfamethoxazole-Trimethoprim 800-160 MG 1 tablet 1 ho ur prior to your cystoscopy Orally Once for 1 days Oct, Ketoconazole 2 % 1 application to affected area Externall y BID for 30 day(s) Sep, Flomax 0.4 MG 1 capsule Orally Once a day for 90 day(s) Next Appt Details Provider Name:Marlo Blanca, 08:00:00 AM, [address], [place], [address], Insurance Providers Payer Name Payer Address Payer Phone Insured Name Patient Relati onship to Insured Coverage Start Date Coverage End Date BS [place] [facility] [address] [place] [address] [phone] YECENIA REICH self
--- OUTSIDE RECORDS SUMMARY | 2021-01-02 09:36 | CCD ---
Author Author [facility] [facility] Organization [facility] [facility] Address Unknown Phone Unavailable Care Team Providers Care Technology Integration Specialist Name Role Phone Jadon Galvez Unavailable PROBLEMS Type Condition ICD9-CM Code [id number] Code Onset Dates Condition S tatus W/U Status Risk SNOMED Code Notes Problem Benign prostatic hyperplasia with lower urinary tract symptoms N40.1 Active confirmed [id number] Problem Balanitis N48.1 Active confirmed [id number] ALLERGIES No Known Allergies ENCOUNTERS from 1960 to 2020-12-26 Encounter Location Date Provider Diagnosis [facility] [address] [place] [address] Dec Jadon Galvez IMMUNIZATIONS No Information SOCIAL [...] Active Vitamin D3 Ultra Potency 1.25 MG (32286 UT) 1 tablet Orally for 30 da [...] 14 day( s) Active Lidocaine HCl Jelly JAIL 2 % 5 ML1 application to affec chiquis area as needed Intravesically TIME AT CYSTOSCOPY for 1 dose(s) Feb, Not-Taking BusPIRone HCl 7.5 MG 1 tablet Orally Twice a day Not-Taking Pepcid 20 MG 1 tablet at bedtime as needed Orally Once a day for 30 day(s) Active Simethicone Active PROCEDURES No Information RESULTS No Results REASON FOR VISIT Cancel Cysto MEDICAL (GENERAL) HISTORY Type Description Date Medical [...] Orally Once a day for 90 day(s) Insurance Providers Payer Name Payer Address Payer Phone Insured Name Patient Relati onship to Insured Coverage Start Date Coverage End Date BS [place] [employer] [address] [place] [id number] YECENIA KLEIN self
--- OUTSIDE RECORDS SUMMARY | 2021-01-02 09:37 | CCD ---
Author Author [facility] Organization [facility] Address Unknown Phone Unavailable Care Team Providers Care Sustainability Specialist Name Role Phone Benny Glaser Unavailable Unavailable Mollura, Benny Negron PA Unavailable [...] Unavailable Mollura, Benny Negron PA Unavailable Unavailable MolluraBenny PA Unavailable Unavailable Mollura E Migdalia PA [...] is protected by Article 27-F of the [facility] Public Health law. If you continue you may have access to information: Regarding HIV / AIDS; Provided by facilities licensed or operated by the [facility] Office of Mental Health; or Provided by the [facility] Office for People With Developmental Disabilities. If such information is present, then the following [facility] mandated warning applies: This information has [...] law may result in a fine or assisted sentence or both. A general authorization for the release of medical or other information is NOT sufficient authorization for further disc losure. Family History Family Member Name Family Member Gender Family Member Status Date o f Status Description Data Source(s) Unknown Male Problem [facility] ([facility]) Unknown Male Problem [facility] Unknown Unknown Problem MED[facility] ([facility]) Unknown Female Problem MEDENT ([facility]) Encounters Encounter Providers Location Date Indications Data Source(s ) [place] [address] [facility] [facility] [address] 12/24/2020 12:00:00 AM EST eCW1 ([facility]) [place] [address] [facility] [address] 12/22/2020 12:00:00 AM EST eCW1 ([facility]) Outpatient [address] [facility] [facility] [address] 11/12/2020 12:00:00 AM EST eCW1 ([facility]) Outpatient Attender: Rosmery AYERS-CConsultant: Migdalia AYERS 10/06/2020 08:53:00 AM EST - 10/06/2020 08:53:00 AM EST [facility] Outpatient Attender: Drea Geronimo/Jacob/Gurdeep/Dakota sotomayor 09/22/2020 02:30:00 PM EST [facility] ([facility] Outpatient Attender: Rosmery PÉREZCConsultant: Migdalia AYERS 06/30/2020 08:40:00 AM EDT - 06/30/2020 08:40:00 AM EDT [facility] Outpatient Attender: Drea Geronimo/Salvador/Dakota sotomayor 06/25/2020 01:00:00 PM EDT MED[facility] ([facility]) Medications Medication Brand Name Start Date Product Form Dose Route Admi nistrative Instructions Pharmacy Instructions Status Indications Reaction Description Data Source(s) Sulfamethoxazole 800 MG / Trimethoprim 1 60 MG Oral Tablet Sulfamethoxazole- Trimethoprim 800-160 MG Sulfamethoxazole-Trimethoprim 800-160 MG 11/12/2020 12:00:00 AM EST active Sulfamet hoxazole-Trimethoprim 800-160 MG eCW1 ([facility]) Sulfamethoxazole 800 MG / Trimethoprim 1 60 MG Oral Tablet Sulfamethoxazole- Trimethoprim 800-160 MG Sulfamethoxazole-Trimethoprim 800-160 MG 11/12/2020 12:00:00 AM EST active Sulfamet hoxazole-Trimethoprim 800-160 MG eCW1 ([facility]) Sulfamethoxazole 800 MG / Trimethoprim 1 60 MG Oral Tablet Sulfamethoxazole- Trimethoprim 800-160 MG Sulfamethoxazole-Trimethoprim 800-160 MG 11/12/2020 12:00:00 AM EST active Sulfamet hoxazole-Trimethoprim 800-160 MG eCW1 ([facility]) Famotidine 20 MG Oral Tablet [Pepcid] Pepcid 10/06/2020 12:00:00 AM EST ORAL active MEDENT ([facility]) Prednisone 10 MG Oral Tablet Prednisone 09/22/2020 12:00:00 AM EST ORAL completed MEDENT ([facility], ) Cholecalciferol 53508 UNT Oral Tablet Vitamin D3 Ultra Poten cy 07/04/2020 12:00:00 AM EDT ORAL active M EDENT ([facility]) Stiolto Respimat Stiolto Respimat 06/26/2020 12:00:00 AM EDT RESPIRATORY completed MEDENT ([facility], ) formoterol fumarate 0.01 MG/ML Inhalant Solution [Perforomis t] Perforomist 06/25/2020 12:00:00 AM EDT completed MEDENT ([facility], ) Budesonide 0.5 MG/ML Inhalant Solution Budesonide 06/25/2020 12:0 0:00 AM EDT active MEDENT ([facility], ) arformoterol 0.0075 MG/ML Inhalant Solution [Brovana] Brovan a 06/25/2020 12:00:00 AM EDT completed MEDENT ([facility], ) 60 ACTUAT Budesonide 0.16 MG/ACTUAT / fo rmoterol fumarate 0.0045 MG/ACTUAT Metered Dose Inhaler [Symbicort] Symbicort 03/25/2020 12:00:00 AM EDT RESPIRATORY active MEDENT ( [facility], ) Spiriva Respimat Spiriva Respimat 03/25/2020 12:00:00 AM EDT RESPIRATORY active MEDENT ([facility], ) Insurance Providers Payer name Policy type / Coverage type Policy ID Covered green party ID Covered green party's relationship to jain Policy Jain Plan Information [employer] FEDERAL EMPLOYEE PROGRAM [id number] SP [id number] [employer] FED[employer]AL EMPLOYEE PROGRAM [id number] SP [id number] [employer] FEDERAL EMPLOYEE PROGRAM [id number] SP [id number] SELF PAY ONLY [id number] SP [id number] [employer] FEP BS [id number] [employer] Fep Commercial [id number] Self [id number] [place]UE [place] [employer] FEDERAL O/P [id number] 18 [id number] [employer] Fep Commercial [id number] Self [id number] EXCELLUS C [id number] Self [id number] [employer] Fep Commercial [id number] Self [id number] BLUE [place] BLUE [facility] FEDERAL -PHYS [id number] 18 [id number] BCBS Federal Commercial [id number] Self [id number] BCBS Federal Commercial [id number] Self [id number] [employer] Fep Commercial [id number] Self [id number] [employer] Fep Commercial [id number] Self [id number] [employer] Fep Commercial [id number] Self [id number] BCBS Federal Plan Commercial [id number] Self [id number] EXCELLUS BCBS FEDERAL [id number] SP [id number] EXCELLUS BCBS FEDERAL [id number] SP [id number] BS Federal Commercial Self BC BS [place] FEDERAL P [id number] S [id number] BC/BS OF [place] P [id number] S [id number] Problems, Conditions, and Diagnoses Code Display Name Description Problem Type Effective Dates Data Source(s) B370 Candidal stomatitis Candidal stomatitis Diagnosis 1 12/06/2019 08:53:00 AM [facility] K219 Gastro-esophageal reflux disease without esophagitis Gastro-esophageal reflux disease without esophagitis Diagnosis 10/06/2020 08:53:00 AM [facility] J449 Chronic obstructive pulmonary disease, u nspecified Chronic obstructive pulmonary disease, unspecified Diagnosis 10/06/2020 08:53:00 AM [facility] G4733 Obstructive sleep apnea (adult) (pediatr ic) Obstructive sleep apnea (adult) (pediatric) Diagnosis 10/06/2020 08:53:00 AM EST [facility] Z0001 Encounter for general adult medical exam ination with abnormal findings Encounter for general adult medical examination with abnormal findings Diagnosis 06/30/2020 08:40:00 AM EDT [facility] R233 Spontaneous ecchymoses Spontaneous ecchymoses Diagnosi s 06/30/2020 08:40:00 AM EDT [facility] R140 Abdominal distension (gaseous) Abdominal distension (g aseous) Diagnosis 06/30/2020 08:40:00 AM EDT [facility] Surgeries/Procedures Procedure Description Date Indications Data Source(s) Spirometry 09/22/2020 12:00:00 AM EST [facility], ) Spirometry 06/25/2020 12:00:[address] [facility] ([facility], ) Results ID Date Data Source [id number] 12/28/2020 08:30:00 AM EST [facility] Name Value Range Interpretation Code Description Data Flakita rce(s) Supporting Document(s) SARS coronavirus 2 RNA Not Detected [facility] [place] This lab was ordered by [facility] and reported by [facility]. ID Date Data Source [id number] 12/22/2020 12:17:00 PM EST MEDENT ([facility]) Name Value Range Interpretation Code Description Data Flakita rce(s) Supporting Document(s) Prostate specific Ag [Mass/volume] in Serum or Plasma 1.04 ng/mL Normal (applies to non-numeric results) [facility] ([facility]) The PSA assay is performed on the Anaquata analyzer by LOCI sandwich chemiluminescent immunoassay and should not be compared interchangeably with other methods. It should not be used alone as a screening test or diagnosis for the presence or absence of malignant disease. Predictions of disease recurrence should not be based solely on values obtained from serial patient serum values. ID Date Data Source [id number] 12/19/2020 01:55:00 PM EST [facility] Name Value Range Interpretation Code Description Data Flakita rce(s) Supporting Document(s) SARS coronavirus 2 RNA Not Detected [facility] [place] This lab was ordered by [facility] and reported by [facility]. ID Date Data Source [id number] 12/19/2020 12:26:00 PM EST [facility] Name Value Range Interpretation Code Description Data Flakita rce(s) Supporting Document(s) SARS COVID ANTIGEN NEGATIVE [facility] This lab was ordered by [facility] nd reported by [facility]. ID Date Data Source [id number] 11/18/2020 06:37:00 PM EST MEDENT ([facility]) Name Value Range Interpretation Code Description Data Flakita rce(s) Supporting Document(s) Glucose, Fasting 98 mg/dL 70-100 Normal (applies to non-numeric results) MEDENT ([facility]) Creatinine For GFR 0.76 mg/dL 0.70-1.30 Normal (applies to non -numeric results) [facility] ([facility]) Glomerular Filtration Rate Laboratory test result Normal (applies to non- numeric results) [facility] ([facility]) <content>Units are mL/min/1.73 m2</content>
<content></content>
<content>Chronic Kidney Disease Staging per NKF:</content>
<content></content>
<content>Stage I & II GFR >=60 Normal to Mildly Decreased</content>
<content>Stage III GFR 30- 59 Moderately Decreased</content>
<content>Stage IV GFR 15-29 Severely Decreased</content>
<content>Stage V GFR <15 Very Little GFR Left</content>
<content>ESRD GFR <15 on BRINE PURIFIER</content>
<content></content> Blood Urea Nitrogen 8 mg/dL 7-18 Normal (applies to non-nume phylicia results) MEDENT ([facility]) Potassium Serum 4.4 meq/L 3.5-5.1 Normal (applies to non-numeric results) [facility] ([facility]) Sodium Level 139 meq/L 136-145 Normal (applies to non-numeric res ults) [facility] ([facility]) Anion Gap 4 meq/L 8-16 Below low normal [facility] ( [facility]) Carbon Dioxide Level 33 meq/L 21-32 Above high normal MED[facility] ([facility]) Chloride Level 102 meq/L 98-107 Normal (applies to non-numeric r esults) [facility] ([facility]) Calcium Level 9.3 mg/dL 8.5-10.1 Normal (applies to non-numeric re sults) [facility] ([facility]) ID Date Data Source [id number] 11/18/2020 06:37:00 PM EST MEDENT ([facility]) Name Value Range Interpretation Code Description Data Flakita rce(s) Supporting Document(s) Alt/SGPT 22 U/L 12-78 Normal (applies to non-numeric resul ts) MEDENT ([facility]) Ast/Sgot 20 U/L 7-37 Normal (applies to non-numeric resul ts) [facility]ENT ([facility]) Bilirubin,Total 0.5 mg/dL 0.2-1.0 Normal (applies to non-numeric results) [facility] ([facility]) Alkaline Phosphatase 121 U/L 45-117 Above high normal MEDENT ([facility]) Bilirubin,Direct 0.2 mg/dL 0.0-0.2 Normal (applies to non-numeric results) [facility] ([facility]) Total Protein 7.5 GM/DL 6.4-8.2 Normal (applies to non-numeric re sults) [facility] ([facility]) Albumin 3.7 GM/DL 3.2-5.2 Normal (applies to non-numeric resul ts) MEDENT ([facility]) Albumin/Globulin Ratio 1.0 Normal (applies to non-n umeric results) [facility] ([facility]) ID Date Data Source [id number] 11/18/2020 06:37:00 PM EST MEDENT ([facility]) Name Value Range Interpretation Code Description Data Flakita rce(s) Supporting Document(s) CPK Creatine Phosphokinase 109 U/L 39-308 [place] l (applies to non-numeric results) MEDENT ([facility]) CK-MB Value Mass 2.5 ng/mL Normal (applies to non-numeric results) [facility] ([facility]) MB/CK Relative Index 2.29 Normal (applies to non-num nancy results) [facility] ([facility]) <content>DIAGNOSIS CRITERIA</content>
<content>MMB ng/ml Relative Index (RI)</content>
<content>NON-AMI < or = 5 N/A</content>
<content>TORIBIO ZONE > 5 < or = 4</content>
<content>AMI > 5 > 4</content>
<content></content> Troponin I Laboratory test result Normal (applies to non-n umeric results) [facility] ([facility]) <content>Troponin I Reference Interval f or Siemens [place] LOCI:</content>
<content></content>
<content>99th Percentile= 0.00-0.045 ng/ml</content>
<content></content>
<content>Risk Stratification:</content>
<content><= 0.10 ng/ml Decreased Risk for Adverse Clinical</content>
<content>Events.</content>
<content>0.10-1.50 ng/ml Increased Risk for Adverse Clinical</content>
<content>Events. Evaluation of additional</content>
<content>criterion and/or repeat testing in 2-6</content>
<content>hours is suggested to rule out myocardial</content>
<content>damage.</content>
<content>>= 1.50 ng/ml Indicative of Myocardial Injury.</content>
<content></content> ID Date Data Source [id number] 11/18/2020 06:37:00 PM EST MEDENT ([facility]) Name Value Range Interpretation Code Description Data Flakita rce(s) Supporting Document(s) White Blood Count 7.8 10 4.0-10.0 Normal (applies to non-numeri c results) MEDENT ([facility]) Hematocrit 48.0 % 42.0-52.0 Normal (applies to non-numeric resul ts) MEDENT ([facility]) Hemoglobin 15.5 g/dL 13.5-17.5 Normal (applies to non-numeric resul ts) MEDENT ([facility]) Red Blood Count 4.79 10 4.30-6.10 Normal (applies to non-numeric results) MED[facility] ([facility]) Red Cell Distribution Width 12.9 % 11.5-14.5 Norm al (applies to non-numeric results) MEDENT ([facility]) Mean Corpuscular Hemoglobin 32.4 pg 27.0-33.0 Norm al (applies to non-numeric results) MEDENT ([facility]) Mean Corpuscular HGB Conc 32.3 g/dL 32.0-36.5 Normal (applies to non-numeric results) MEDENT ([facility]) Mean Corpuscular Volume 100.2 fl 80.0-96.0 Above high normal MEDENT ([facility]) Platelet Count, Automated 330 10 150-450 Normal (applies to non-numeric results) MEDENT ([facility]) Lymph % 19.1 % 24.0-44.0 Below low normal MEDENT ( [facility]) Neutrophils % 69.4 % 36.0-66.0 Above high normal MEDE NT ([facility]) [place] % 10.2 % 0.0-5.0 Above high normal MEDENT ([facility]) Eos % 0.1 % 0.0-3.0 Normal (applies to non-numeric resul ts) MEDENT ([facility]) Baso % 0.8 % 0.0-1.0 Normal (applies to non-numeric resul ts) MEDENT ([facility]) Nucleated Red Blood Cell % 0.0 % 0-0 Normal (applies to n on-numeric results) MEDENT ([facility]) Neutrophils # 5.4 10 1.5-8.5 Normal (applies to non-numeric re sults) MEDENT ([facility]) Immature Granulocyte % 0.4 % 0-3.0 Normal (applies to non-n umeric results) MEDENT ([facility]) Eos # 0.0 10 0.0-0.5 Normal (applies to non-numeric resul ts) MEDENT ([facility]) [place] # 0.8 10 0.0-0.8 Normal (applies to non-numeric resul ts) MEDENT ([facility]) Lymph # 1.5 10 1.5-5.0 Normal (applies to non-numeric resul ts) MEDENT ([facility]) Baso # 0.1 10 0.0-0.2 Normal (applies to non-numeric resul ts) MEDENT ([facility]) ID Date Data Source URINE CULTURE 11/12/2020 12:00:00 AM EST eCW1 ([facility]) Name Value Range Interpretation Code Description Data Flakita rce(s) Supporting Document(s) URINE CULTURE eCW1 ([facility]) ID Date Data Source UA URINALYSIS 11/12/2020 12:00:00 AM EST eCW1 ([facility]) Name Value Range Interpretation Code Description Data Flakita rce(s) Supporting Document(s) UA URINALYSIS eCW1 ([facility]) ID Date Data Source [id number] 10/30/2020 12:40:00 PM EST MEDENT ([facility]) Name Value Range Interpretation Code Description Data Flakita rce(s) Supporting Document(s) Laboratory test finding (navigational concept) Laboratory test result MEDENT ([facility]) Test: COVID-19 Nasal/Naspharynx Result: NOT DETECTED Reference Units: Not detected Note: Please consider re-collection of a new specimen, if clinically indicated. Note: The COVID-19 assay is under Emergency Use Authorization(EUA) by the U.S. Food and Drug Administration. [facility] is designated as a high complexity laboratory by the Clinical Laboratory Improvement Amendments of 1988(CLIA) and is qualified to perform this test. ASSAY INFORMATION: Real Time RT-PCR ID Date Data Source [id number] 10/30/2020 12:00:00 AM EST [facility] Name Value Range Interpretation Code Description Data Flakita rce(s) Supporting Document(s) 2019-nCoV RNA XXX ILANA+probe-Imp [facility] This lab was ordered by [facility] and reported by [employer] ID Date Data Source [id number] 06/30/2020 11:11:00 AM EDT MEDENT ([facility]) Name Value Range Interpretation Code Description Data Flakita rce(s) Supporting Document(s) White Blood Count Laboratory test result 4.3-10.9 MED[facility] ([facility]) Hemoglobin 16.6 14.0-16.0 [facility] ([facility]) Red Blood Count Laboratory test result 4.70-6.20 [facility] ([facility]) Platelets 279 150-450 MED[facility] ([facility]) Hematocrit 49.7 41.0-51.0 [facility] ([facility]) ID Date Data Source [id number] 06/30/2020 11:11:00 AM EDT MED[facility] ([facility]) Name Value Range Interpretation Code Description Data Flakita rce(s) Supporting Document(s) Albumin [Mass/volume] in Serum or Plasma 4.7 MED[facility] ([facility]) Alanine aminotransferase [Enzymatic activity/volume] in Serum or Pl asma 25 MEDENT ([facility]) Calcium [Mass/volume] in Serum or Plasma 9.5 MED[facility] ([facility]) Carbon dioxide, total [Moles/volume] in Serum or Plasma 28 [facility] ([facility]) Alkaline phosphatase [Enzymatic activity/volume] in Serum or Plasma 1 17 [facility] ([facility]) Chloride [Moles/volume] in Serum or Plasma 100 [facility] ([facility]) Protein [Mass/volume] in Serum or Plasma 7.3 [facility] ([facility]) Potassium [Moles/volume] in Serum or Plasma 4.5 MED[facility] ([facility]) Sodium 141 [facility] ([facility]) Urea nitrogen [Mass/volume] in Serum or Plasma 14 MED[facility] ([facility]) Aspartate aminotransferase [Enzymatic activity/volume] in Serum or Plasma 27 MED[facility] ([facility]) Glucose 97 65-110 MED[facility] ([facility]) Creatinine For GFR 0.8 [facility] ID Date Data Source [id number] 06/30/2020 11:11:00 AM EDT MEDENT ([facility]) Name Value Range Interpretation Code Description Data Flakita rce(s) Supporting Document(s) Thyroid Stimulating Hormone 0.89 ME DENT ([facility]) ID Date Data Source [id number] 06/30/2020 11:11:00 AM EDT MEDENT ([facility]) Name Value Range Interpretation Code Description Data Flakita rce(s) Supporting Document(s) Hemoglobin A1c/Hemoglobin.total in Blood 6.0 MED[facility] ([facility]) ID Date Data Source [id number] 06/30/2020 09:36:00 AM EDT MEDENT ([facility]) Name Value Range Interpretation Code Description Data Flakita rce(s) Supporting Document(s) Calcidiol [Mass/volume] in Serum or Plasma 23 ng/mL MEDENT ([facility]) <content>VITAMIN-D(25HYDROXY)</content>< br/><content>Deficiency: <=20 ng/ml</content>
<content>Insufficiency: 21-29 ng/ml</content>
<content>Preferred level: => 30 ng/ml</content>
<conten t></content> Thyrotropin [Units/volume] in Serum or Plasma 0.89 uIU/mL 0.47-5.01 MEDENT ([facility]) Cobalamin (Vitamin B12) [Mass/volume] in Serum or Plasma 1084 pg/mL 232-1245 MED[facility] ([facility]) ID Date Data Source [id number] 06/30/2020 09:36:00 AM EDT MEDENT ([facility]) Name Value Range Interpretation Code Description Data Flakita rce(s) Supporting Document(s) Cholesterol 202 mg/dL 131-200 Above high normal MEDENT ([facility]) Cve Panel Laboratory test result MED[facility] ([facility]) LIPID PANEL HDL 69 mg/dL 29-86 MED[facility] ([facility]) LDL 117 mg/dL 65-175 MED[facility] ([facility]) Triglycerides 88 mg/dL 35-160 MED[facility] ([facility]) Risk Factor 2.9 3.4-4.9 Below low normal MED[facility] ([facility]) LDL/HDL 1.70 1.00-3.55 MED[facility] ([facility]) CVE RISK CHOL/HDL LDL/HDL MEN: 1/2 AVERAGE 3.43 1.00 AVERAGE 4.97 3.55 2X AVERAGE 9.55 6.25 3X AVERAGE 23.99 7.99 WOMEN: 1/2 AVERAGE 3.27 1.47 AVERAGE 4.44 3.22 2X AVERAGE 7.05 5.03 3X AVERAGE 11.04 6.14 ID Date Data Source [id number] 06/30/2020 09:36:00 AM EDT MEDENT ([facility]) Name Value Range Interpretation Code Description Data Flakita [facility](s) Supporting Document(s) Comprehensive Metabo Laboratory test result MED[facility] ([facility]) COMPREHENSIVE METABOLIC PANEL Sodium 141 meq/L 134-153 MED[facility] ([facility]) Chloride 100 meq/L 98-107 [facility] ([facility]) Potassium 4.5 meq/L 3.6-5.0 [facility] ([facility]) Co2 28 meq/L 22-30 MED[facility] ([facility]) Glucose 97 mg/dL 65-110 MED[facility] ([facility]) Creatinine 0.8 mg/dL 0.7-1.5 MED[facility] ([facility]) BUN 11 mg/dL 7-21 MED[facility] ([facility]) BUN/Creat 14 8-27 MED[facility] ([facility]) Total Protein 7.3 g/dL 6.3-8.2 MED[facility] ([facility]) A/G Ratio 1.8 0.8-2.0 [facility] ([facility]) Globulin 2.6 GM/DL 2.4-3.2 MED[facility] ([facility]) Albumin 4.7 g/dL 3.9-5.0 [facility] ([facility]) Calcium 9.5 mg/dL 8.4-10.2 MED[facility] ([facility]) Alkaline Phos 117 U/L 38-126 MED[facility] ([facility]) Total Bili 0.7 mg/dL 0.2-1.3 MED[facility] ([facility]) Anion Gap 13.0 mmol/L 8.0-16.0 MEDENT ([facility]) Sgot/Ast 27 U/L 5-40 MED[facility] ([facility]) SGPT/Alt 25 U/L 7-56 [facility] ([facility]) Afr Amer GFR Laboratory test result MEDENT ([facility]) Male GFR Interprentation 20-49 yrs >60 [...] >32 mL/min Normal Age 60 yrs MEDENT ([facility]) Non-Aa GFR Laboratory test result [facility] ([facility]) ID Date Data Source [id number] 06/30/2020 09:36:00 AM EDT MED[facility] ([facility]) Name Value Range Interpretation Code Description Data Flakita rce(s) Supporting Document(s) CBC W/Automated Diff Laboratory test result MED[facility] ([facility]) COMPLETE BLOOD COUNT WBC 6.7 10^3/uL 4.2-11.0 MED[facility] ([facility]) Hematocrit 49.7 % 41.0-51.0 [facility] ([facility]) RBC 5.00 10^6/uL 4.50-6.30 [facility] ([facility]) Hemoglobin 16.6 g/dL 14.0-16.0 Above high normal [facility] ([facility]) MCH 33.2 pg 27.0-34.0 [facility] ([facility]) MCV 99.4 fL 80.0-94.0 Above high normal [facility] ([facility]) MCHC 33.4 g/dL 31.0-36.0 [facility] ([facility]) RDW 13.3 % 11.5-14.8 [facility] ([facility]) Platelets 279 10^3/uL 150-450 MED[facility] ([facility]) Lymph 18.4 % 25.0-40.0 Below low normal [facility] ( [facility]) MPV 8.8 fL 7.4-10.4 [facility] [facility]) Neut 69.6 % 37.0-80.0 [facility] ([facility]) Eos 2.1 % 0.0-7.0 [facility] ([facility]) [place] 8.8 % 3.0-8.0 Above high normal [facility] ([facility]) Baso 1.0 % 0.0-2.0 [facility] ([facility]) %Ig 0.1 % 0.0-0.0 Above high normal [facility] ([facility]) %NRBC 0.0 % 0.0-0.0 [facility] ([facility]) #Neut 4.64 10^3/uL 2.00-6.90 [facility] ([facility]) #[place] 0.59 10^3/uL 0.00-0.90 [facility] ([facility]) #Lymph 1.23 10^3/uL 0.60-3.40 [facility] ([facility]) #Eos 0.14 10^3/uL 0.00-0.70 [facility] ([facility]) #[place] 0.07 10^3/uL 0.00-0.20 [facility] ([facility]) #Ig 0.01 10^3/uL 0.00-0.10 [facility] ([facility]) #NRBC 0.00 10^3/uL 0.00-0.00 [facility] ([facility]) Manual Diff Laboratory test result M EDENT ([facility]) Segs 71 % 37-80 [facility] ([facility]) %Eos 1 % 0-7 [facility] ([facility]) %Lymph 18 % 25-40 Below low normal [facility] ([facility]) %[place] 10 % 3-8 Above high normal [facility] ([facility]) RBC Morph Laboratory test result [facility] ([facility]) ID Date Data Source [id number] 06/30/2020 09:36:00 AM EDT [facility] ([facility]) Name Value Range Interpretation Code Description Data Flakita rce(s) Supporting Document(s) Hemoglobin A1c/Hemoglobin.total in Blood 6.0 % 4.4-6.1 [facility] ([facility]) {A1] {HB] ID Date Data Source [id number] 06/30/2020 09:36:00 AM EDT [facility] ([facility]) Name Value Range Interpretation Code Description Data Flakita rce(s) Supporting Document(s) Lab - Specimen Rejec Laboratory test result [facility] ([facility]) Specimen Integrity/Specimen Recollection The patient sample needs to be resubmitted for the following reason: Test(s) Ordered Laboratory test result [facility] ([facility]) Rejection Reason Laboratory test result [facility] ([facility]) { One or more of the tests you ordered cannot be performed. { Please recollect, reorder, and resubmit if needed. ID Date Data Source [id number] 06/30/2020 09:36:00 AM EDT [facility] ([facility]) Name Value Range Interpretation Code Description Data Flakita rce(s) Supporting Document(s) Hemoglobin A1c/Hemoglobin.total in Blood Laboratory test result [facility] ([facility]) Thyrotropin [Units/volume] in Serum or Plasma Laboratory test result [facility] ([facility]) Cobalamin (Vitamin B12) [Mass/volume] in Serum or Plasma Lab oratory test result [facility] ([facility]) Calcidiol [Mass/volume] in Serum or Plasma Laboratory test result [facility] ([facility]) Folate [Mass/volume] in Red Blood Cells Laboratory test result [facility] ([facility]) ID Date Data Source [id number] 06/30/2020 04:12:00 PM EDT [facility] Name Value Range Interpretation Code Description Data Flakita rce(s) Supporting Document(s) Cobalamin (Vitamin B12) [Mass/volume] in Serum or Plasma 1084 PG /ML 232 - 1245 [facility] ID Date Data Source [id number] 06/30/2020 04:12:00 PM EDT [facility] Name Value Range Interpretation Code Description Data Flakita rce(s) Supporting Document(s) Calcidiol [Moles/volume] in Serum or Plasma 23 NG/ML [facility] VITAMIN-D(2 5HYDROXY) Deficiency: <=20 ng/ml Insufficiency: 21-29 ng/ml Preferred level: => 30 ng/ml ID Date Data Source [id number] 06/30/2020 04:12:00 PM EDT [facility] Name Value Range Interpretation Code Description Data Flakita rce(s) Supporting Document(s) Thyrotropin [Units/volume] in Serum or Plasma by Detec tion limit <= 0.05 mIU/L 0.89 uIU/mL 0.47 - 5.01 [facility] ID Date Data Source [id number] 06/30/2020 03:52:00 PM EDT [facility] Name Value Range Interpretation Code Description Data Flakita rce(s) Supporting Document(s) [facility] LIP[facility] Cholesterol [Mass/volume] in Serum or Plasma 202 MG/DL 131 - 200 H [facility] Deprecated Triglyceride [Mass/volume] in Serum or Plasma 88 MG/DL 3 5 - 160 [facility] HDL 69 MG/DL 29 - 86 [facility] Cholesterol in LDL [Mass/volume] in Serum or Plasma by Direc t assay 117 mg/dL 65 - 175 [facility] Cholesterol.total/Cholesterol in HDL [Mass Ratio] in Serum o r Plasma 2.9 3.4 - 4.9 L [facility] LDL/HDL 1.70 1.00 - 3.55 [facility] CVE RISK CHOL/HDL LDL/HDLMEN: 1/2 AVERAGE 3.43 1.00 AVERAGE 4.97 3.55 2X AVERAGE 9.55 6.25 3X AVERAGE 23.99 7.99WOMEN: 1/2 AVERAGE 3.27 1.47 AVERAGE 4.44 3.22 2X AVERAGE 7.05 5.03 3X AVERAGE 11.04 6.14 ID Date Data Source [id number] 06/30/2020 03:46:00 PM EDT [facility] Name Value Range Interpretation Code Description Data Flakita rce(s) Supporting Document(s) COMPREHENSIVE METABOLIC PANEL [facility] COMPREHENSIVE METABOLIC PANEL Sodium [Moles/volume] in Serum or Plasma 141 mEq/L 134 - 153 [facility] Potassium [Moles/volume] in Serum or Plasma 4.5 mEq/L 3.6 - 5.0 [facility] Chloride [Moles/volume] in Serum or Plasma 100 mEq/L 98 - 107 [facility] Carbon dioxide, total [Moles/volume] in Serum or Plasma 28 MEQ/L 22 - 30 [facility] Glucose [Mass/volume] in Serum or Plasma 97 MG/DL 65 - 110 [facility] BUN 11 MG/DL 7 - 21 [facility] Creatinine [Mass/volume] in Serum or Plasma 0.8 MG/DL 0.7 - 1.5 [facility] BUN/CREAT 14 8 - 27 [facility] Protein [Mass/volume] in Serum or Plasma 7.3 G/DL 6.3 - 8.2 [facility] Albumin [Mass/volume] in Serum or Plasma 4.7 G/DL 3.9 - 5.0 [facility] Globulin [Mass/volume] in Serum by calculation 2.6 GM/DL 2.4 - 3.2 [facility] A/G RATIO 1.8 0.8 - 2.0 [facility] Calcium [Mass/volume] in Serum or Plasma 9.5 MG/DL 8.4 - 10.2 [facility] Bilirubin.total [Mass/volume] in Serum or Plasma 0.7 MG/DL 0.2 - 1.3 [facility] Alkaline phosphatase [Enzymatic activity/volume] in Serum or Plasma 117 U/L 38 - 126 [facility] Aspartate aminotransferase [Enzymatic activity/volume] in Serum or Plasma 27 U/L 5 - 40 [facility] Alanine aminotransferase [Enzymatic activity/volume] in Seru m or Plasma 25 U/L 7 - 56 [facility] Anion gap 3 in Serum or Plasma 13.0 mmol/L 8.0 - 16.0 [facility] AGE [address] [facility] NON-AA GFR >60 mL/min [facility] AFR AMER GFR >60 mL/min [facility] Male GFR In terprentation [...] >32 mL/min Normal ID Date Data Source [id number] 06/30/2020 01:48:00 PM EDT [facility] Name Value Range Interpretation Code Description Data Flakita rce(s) Supporting Document(s) CBC W/AUTOMATED DIFF [facility] COMPLETE BLOOD COUNT Leukocytes [#/volume] in Blood by Automated count 6.7 10^3/uL 4.2 - 1 1.0 [facility] Erythrocytes [#/volume] in Blood by Automated count 5.00 10^6/uL 4. 50 - 6.30 [facility] Hemoglobin [Mass/volume] in Blood 16.6 g/dL 14.0 - 16.0 H [facility] Hematocrit [Volume Fraction] of Blood by Automated count 49.7 % 4 1.0 - 51.0 [facility] Erythrocyte mean corpuscular volume [Entitic volume] by Auto mated count 99.4 fL 80.0 - 94.0 H [facility] Erythrocyte mean corpuscular hemoglobin [Entitic mass] by Automated count 33.2 pg 27.0 - 34.0 [facility] Erythrocyte mean corpuscular hemoglobin concentration [Mass/volume] by Automated count 33.4 g/dL 31.0 - 36.0 [facility] Erythrocyte distribution width [Ratio] by Automated count 13.3 % 11.5 - 14.8 [facility] Platelets [#/volume] in Blood by Automated count 279 10^3/uL 150 - 45 0 [facility] Platelet mean volume [Entitic volume] in Blood by Automated count 8.8 fL 7.4 - 10.4 [facility] Neutrophils/100 leukocytes in Blood by Automated count 69.6 % 37. 0 - 80.0 [facility] Lymphocytes/100 leukocytes in Blood by Manual count 18.4 % 25.0 - 40.0 L [facility] Monocytes/100 leukocytes in Blood by Automated count 8.8 % 3.0 - 8.0 H [facility] Eosinophils/100 leukocytes in Blood by Automated count 2.1 % 0.0 - 7.0 [facility] Basophils/100 leukocytes in Blood by Automated count 1.0 % 0.0 - 2.0 [facility] %IG 0.1 % 0.0 - 0.0 [facility] %NRBC 0.0 % 0.0 - 0.0 [facility] Neutrophils [#/volume] in Blood by Automated count 4.64 10^3/uL 2.00 - 6.90 [facility] Lymphocytes [#/volume] in Blood by Automated count 1.23 10^3/uL 0.60 - 3.40 [facility] Monocytes [#/volume] in Blood by Automated count 0.59 10^3/uL 0.00 - 0.90 [facility] Eosinophils [#/volume] in Blood by Automated count 0.14 10^3/uL 0.00 - 0.70 [facility] Basophils [#/volume] in Blood by Automated count 0.07 10^3/uL 0.00 - 0.20 [facility] #IG 0.01 10^3/uL 0.00 - 0.10 [facility] #NRBC 0.00 10^3/uL 0.00 - 0.00 [facility] MANUAL DIFF SEE BELOW [facility] Segmented neutrophils/100 leukocytes in Blood by Manual count 71 % 37 - 80 [facility] %LYMPH 18 % 25 - 40 L [facility] %MONO 10 % 3 - [address] [facility] %EOS 1 % 0 - 7 [facility] RBC MORPH MORPH IS NORMAL [facility] ID Date Data Source [id number] 06/30/2020 01:27:00 PM EDT [facility] Name Value Range Interpretation Code Description Data Flakita rce(s) Supporting Document(s) Hemoglobin A1c/Hemoglobin.total in Blood 6.0 % 4.4 - 6.1 [facility] {A1]{HB] ID Date Data Source [id number] 06/30/2020 12:52:00 PM EDT [facility] Name Value Range Interpretation Code Description Data Flakita rce(s) Supporting Document(s) LAB - SPECIMEN REJECTION [facility] Specimen Integrity/Specimen Recollection The patient sample needs to be resubmitted for the following reason: Test(s) Ordered FOLIC ACID RBC [facility] Rejection Reason QNS [facility] { One or more of the tests you ordered cannot be performed.{ Please recollect, reorder, and resubmit if needed. Procedure Social History Code Duration Value Status Description Data Source(s ) Smoking 11/12/2020 12:00:00 AM EST Former Smoker completed Former Smoker eCW1 ([facility]) Smoking 11/12/2020 12:00:00 AM EST Former Smoker completed Former Smoker eCW1 ([facility]) Smoking 11/12/2020 12:00:00 AM EST Former Smoker completed Former Smoker eCW1 ([facility]) Smoking 09/22/2020 12:00:00 AM EST - 11/21/2018 12:00:00 AM EST Patient is a former smoker completed Patient is a former smoker [facility] ([facility], ) Vital Signs ID Date Data Source UNK Name Value Range Interpretation Code Description Data Source(s) Body surface area Derived from formula 1.51 m2 1.51 m2 GEOVANY ([facility]) Body weight 49.442 kg 49.442 kg [facility] ([facility]) [place] body weight 130 [lb_av] 130 [lb_av] MEDEN T ([facility]) Body mass index (BMI) [Ratio] 18.7 kg/m2 18.7 k g/m2 [facility] ([facility]) Body weight 109.00 [lb_av] 109.00 [lb_av] MEDEN T ([facility]) Body height 64 [in_i] 64 [in_i] [facility] ([facility]) 5'4" Diastolic blood pressure 68 mm[Hg] 68 mm[Hg] [facility] ([facility]) Systolic blood pressure 128 mm[Hg] 128 mm[Hg] M EDENT ([facility]) Diastolic blood pressure 82 mm[Hg] 82 mm[Hg] eCW1 ([facility]) Systolic blood pressure 122 mm[Hg] 122 mm[Hg] e CW1 ([facility]) Body temperature 98.2 [degF] 98.2 [degF] eCW1 ( [facility]) Respiratory rate 20 /min 20 /min eCW1 ([facility]) Heart rate 86 /min 86 /min W1 ([facility]) Body mass index (BMI) [Ratio] 0.13 kg/m2 0.13 k g/m2 eCW1 ([facility]) Body height [in_i] eCW1 ([facility]) Body weight 110 [lb_av] 110 [lb_av] eCW1 ([facility]) Body surface area Derived from formula 1.54 m2 1.54 m2 [facility] ([facility]) Body mass index (BMI) [Ratio] 19.4 kg/m2 19.4 k g/m2 [facility] ([facility]) Body height 64 [in_i] 64 [in_i] [facility] ([facility]) 5'4" Body weight 51.370 kg 51.370 kg [facility] ([facility]) Body weight 113.25 [lb_av] 113.25 [lb_av] MEDEN T ([facility]) Oxygen saturation in Arterial blood by Pulse oximetry 96 % 96 % [facility] ([facility]) Respiratory rate 16 /min 16 /min [facility] ( [facility]) Body temperature 97.1 [degF] 97.1 [degF] [facility] ([facility]) Heart rate 100 /min 100 /min [facility] ([facility]) Diastolic blood pressure 80 mm[Hg] 80 mm[Hg] [facility] ([facility]) Systolic blood pressure 122 mm[Hg] 122 mm[Hg] [facility] ([facility]) Body surface area Derived from formula 1.54 m2 1.54 m2 [facility] ([facility]) Body weight 51.370 kg 51.370 kg [facility] ([facility]) [place] body weight 130 [lb_av] 130 [lb_av] [facility] Body mass index (BMI) [Ratio] 19.4 kg/m2 19.4 k g/m2 [facility] ([facility]) Body weight 113.25 [lb_av] 113.25 [lb_av] [facility] Body height 64 [in_i] 64 [in_i] [facility] ([facility]) 5'4" Body temperature 99.1 [degF] 99.1 [degF] [facility] ([facility]) Oxygen saturation in Arterial blood by Pulse oximetry 93 % 93 % [facility] ([facility]) Heart rate 96 /min 96 /min [facility] ([facility]) Diastolic blood pressure 74 mm[Hg] 74 mm[Hg] [facility] ([facility]) Systolic blood pressure 122 mm[Hg] 122 mm[Hg] [facility] ([facility]) Body surface area Derived from formula 1.50 m2 1.50 m2 [facility] ([facility]) Body mass index (BMI) [Ratio] 18.3 kg/m2 18.3 k g/m2 [facility] ([facility]) Body height 64 [in_i] 64 [in_i] [facility] ([facility]) 5'4" Body weight 48.252 kg 48.252 kg [facility] ([facility]) Body weight 106.38 [lb_av] 106.38 [lb_av] MEDEN T ([facility]) Oxygen saturation in Arterial blood by Pulse oximetry 95 % 95 % [facility] ([facility]) Respiratory rate 16 /min 16 /min [facility] ( [facility]) Body temperature 97.2 [degF] 97.2 [degF] [facility] ([facility]) Heart rate 90 /min 90 /min [facility] ([facility]) Diastolic blood pressure 64 mm[Hg] 64 mm[Hg] [facility] ([facility]) Systolic blood pressure 112 mm[Hg] 112 mm[Hg] M [facility] ([facility]) Body surface area 1.50 m2 1.50 m2 [facility] ([facility]) Body weight 51.313 kg 51.313 kg [facility] ([facility], ) Body mass index (BMI) [Ratio] 19.4 kg/m2 19.4 k g/m2 [facility] ([facility], ) Body weight 113.12 [lb_av] 113.12 [lb_av] MEDEN T ([facility], ) Body height 64 [in_i] 64 [in_i] [facility] ([facility], ) " Body temperature 98.3 [degF] 98.3 [degF] [facility] ([facility], ) Oxygen saturation in Arterial blood by Pulse oximetry 93 % 93 % [facility] ([facility], ) Heart rate 103 /min 103 /min [facility] ([facility], ) Diastolic blood pressure 90 mm[Hg] 90 mm[Hg] [facility] ([facility], ) Systolic blood pressure 138 mm[Hg] 138 mm[Hg] M [facility] ([facility], ) Body height 64 [in_i] 64 [in_i] [facility] ([facility], ) 5'4" Patient Treatment Plan of Care Planned Activity Planned Date Details Description Data Source (s) Sulfamethoxazole 800 MG / Trimethoprim 160 MG Oral Tab let 11/12/2020 12:00:00 AM EST eCW1 ([facility]) Sulfamethoxazole 800 MG / Trimethoprim 160 MG Oral Tab let 11/12/2020 12:00:00 AM EST eCW1 ([facility]) Sulfamethoxazole 800 MG / Trimethoprim 160 MG Oral Tab let 11/12/2020 12:00:00 AM EST eCW1 ([facility])
[2021-01-02] MEDS ORDERED: NS 1,000 ML IV ONE (10:00)
[2021-01-02] MEDS ORDERED: PHENYLephrine 500MCG 5ML (100MCG/ML) SYRINGE As Ordered ONE (10:48)
[2021-01-02] MEDS ORDERED: ePHEDrine SULFATE 25 MG/5 ML(5MG/ML) SYRINGE As Ordered ONE (10:58)
--- NOTE | 2021-01-02 10:58 | ROOR ---
Patient Name: Toni Klein Procedure Date: 01/02/2021 10:38 AM Date of : 1960 Age: 60 Room: [facility] Gender: Male Note Status: Finalized Procedure: Upper GI endoscopy Indications: Dyspepsia, Dysphagia Providers: Yong Christiansen MD Referring MD: Rosmery Sierra Requesting Provider: Medicines: Monitored Anesthesia Care Complications: No immediate complications. Procedure: Pre-Anesthesia Assessment: - Prior to the procedure, a History and Physical was performed, and patient medications and allergies were reviewed. The patient is competent. The risks and benefits of the procedure and the sedation options and risks were discussed with the patient. All questions were answered and informed consent was obtained. Patient identification and proposed procedure were verified by the physician, the nurse and the anesthesiologist in the procedure room. Mental Status Examination: alert and oriented. Airway Examination: normal oropharyngeal airway and neck mobility. Respiratory Examination: clear to auscultation. CV Examination: normal. Prophylactic Antibiotics: The patient does not require prophylactic antibiotics. Prior Anticoagulants: The patient has taken no previous anticoagulant or antiplatelet agents. ASA Grade Assessment: II - A patient with mild systemic disease. After reviewing the risks and benefits, the patient was deemed in satisfactory condition to undergo the procedure. The anesthesia plan was to use monitored anesthesia care (MAC). Immediately prior to administration of medications, the patient was re-assessed for adequacy to receive sedatives. The heart rate, respiratory rate, oxygen saturations, blood pressure, adequacy of pulmonary ventilation, and response to care were monitored throughout the procedure. The physical status of the patient was re-assessed after the procedure. The Endoscope was introduced through the mouth, and advanced to the second part of duodenum. The upper GI endoscopy was accomplished without difficulty. The patient tolerated the procedure well. Findings: The examined esophagus was normal. The Z-line was regular and was found 45 cm from the incisors. Patchy mild inflammation characterized by erythema, friability and granularity was found in the gastric body and in the gastric antrum. Biopsies were taken with a cold forceps for histology. Biopsies were taken with a cold forceps for Helicobacter pylori testing. Verification of patient identification for the specimen was done by the physician and nurse using the patient's name, date and medical record number. Estimated blood loss was minimal. The duodenal bulb and second portion of the duodenum were normal. Biopsies for histology were taken with a cold forceps for evaluation of celiac disease. Impression: - Normal esophagus. - Z-line regular, 45 cm from the incisors. - Gastritis. Biopsied. - Normal duodenal bulb and second portion of the duodenum. Biopsied. Recommendation: - Patient has a contact number available for emergencies. The signs and symptoms of potential delayed complications were discussed with the patient. Return to normal activities tomorrow. Written discharge instructions were provided to the patient. - High fiber diet. - Continue present medications. - Await pathology results. - Follow an antireflux regimen. - Perform ambulatory esophageal manometry if symptoms persist. - Telephone GI clinic for pathology results in 2 weeks. - Return to primary care physician. Procedure Code(s): --- Professional --- 02624, Esophagogastroduodenoscopy, flexible, transoral; with biopsy, single or multiple Diagnosis Code(s): --- Professional --- K29.70, Gastritis, unspecified, without bleeding R10.13, Epigastric pain R13.10, Dysphagia, unspecified CPT copyright 2019 [employer]. All rights reserved. The codes documented in this report are preliminary and upon medical imaging technologist review may be revised to meet current compliance requirements. Yong Christiansen MD Yong Christiansen MD 01/02/2021 10:58:13 AM Electronically signed by Yong Christiansen MD Number of Addenda: 0 Note Initiated On: 01/02/2021 10:38 AM Estimated Blood Loss: Estimated blood loss was minimal.
--- NOTE | 2021-01-02 11:45 | ROOR ---
Patient Name: Toni Klein Procedure Date: 01/02/2021 10:39 AM Date of : 1960 Age: 60 Room: [facility] Gender: Male Note Status: Finalized Procedure: Colonoscopy Indications: Screening for colorectal malignant neoplasm Providers: Yong Christiansen MD Referring MD: Rosmery Sierra Requesting Provider: Medicines: Monitored Anesthesia Care Complications: No immediate complications. Procedure: Pre-Anesthesia Assessment: - Prior to the procedure, a History and Physical was performed, and patient medications and allergies were reviewed. The patient is competent. The risks and benefits of the procedure and the sedation options and risks were discussed with the patient. All questions were answered and informed consent was obtained. Patient identification and proposed procedure were verified by the physician, the nurse and the anesthesiologist in the procedure room. Mental Status Examination: alert and oriented. Airway Examination: normal oropharyngeal airway and neck mobility. Respiratory Examination: clear to auscultation. CV Examination: normal. Prophylactic Antibiotics: The patient does not require prophylactic antibiotics. Prior Anticoagulants: The patient has taken no previous anticoagulant or antiplatelet agents. ASA Grade Assessment: II - A patient with mild systemic disease. After reviewing the risks and benefits, the patient was deemed in satisfactory condition to undergo the procedure. The anesthesia plan was to use monitored anesthesia care (MAC). Immediately prior to administration of medications, the patient was re-assessed for adequacy to receive sedatives. The heart rate, respiratory rate, oxygen saturations, blood pressure, adequacy of pulmonary ventilation, and response to care were monitored throughout the procedure. The physical status of the patient was re-assessed after the procedure. The Colonoscope was introduced through the anus and advanced to the terminal ileum, with identification of the appendiceal orifice and IC valve. The colonoscopy was performed without difficulty. The patient tolerated the procedure well. The quality of the bowel preparation was good. The terminal ileum, ileocecal valve, appendiceal orifice, and rectum were photographed. Scope insertion time was 2 minutes. Scope withdrawal time was 9 minutes. The total duration of the procedure was 11 minutes. Findings: The perianal and digital rectal examinations were normal. Two sessile polyps were found in the ascending colon and cecum. The polyps were 5 to 8 mm in size. These polyps were removed with a cold snare. Resection and retrieval were complete. Verification of patient identification for the specimen was done by the physician and nurse using the patient's name, date and medical record number. Estimated blood loss was minimal. A few small-mouthed diverticula were found in the sigmoid colon. There was no evidence of diverticular bleeding. A 3 mm polyp was found in the rectum. The polyp was sessile. The polyp was removed with a cold biopsy forceps. Resection and retrieval were complete. The colon (entire examined portion) was significantly tortuous. Non-bleeding external and internal hemorrhoids were found during retroflexion. The hemorrhoids were large. Impression: - Two 5 to 8 mm polyps in the ascending colon and in the cecum, removed with a cold snare. Resected and retrieved. - Mild diverticulosis in the sigmoid colon. There was no evidence of diverticular bleeding. - One 3 mm polyp in the rectum, removed with a cold biopsy forceps. Resected and retrieved. - Tortuous colon. - Non-bleeding external and internal hemorrhoids. Recommendation: - Patient has a contact number available for emergencies. The signs and symptoms of potential delayed complications were discussed with the patient. Return to normal activities tomorrow. Written discharge instructions were provided to the patient. - High fiber diet. - Continue present medications. - Use fiber, for example Citrucel, Fibercon, Konsyl or Metamucil. - Preparation H ointment: Apply externally daily for 5 days. - Await pathology results. - Repeat colonoscopy in 5-10 years for surveillance based on pathology results. - Telephone GI clinic for pathology results in 2 weeks. - Return to primary care physician. Procedure Code(s): --- Professional --- 68236, Colonoscopy, flexible; with removal of tumor(s), polyp(s), or other lesion(s) by snare technique 66334, 59, Colonoscopy, flexible; with biopsy, single or multiple Diagnosis Code(s): --- Professional --- Z12.11, Encounter for screening for malignant neoplasm of colon K63.5, Polyp of colon K64.8, Other hemorrhoids K62.1, Rectal polyp K57.30, Diverticulosis of large intestine without perforation or abscess without bleeding Q43.8, Other specified congenital malformations of intestine CPT copyright 2019 [employer]. All rights reserved. The codes documented in this report are preliminary and upon travel [employer] review may be revised to meet current compliance requirements. Yong Christiansen MD Yong Christiansen MD 01/02/2021 11:44:34 AM Electronically signed by Yong Christiansen MD Number of Addenda: 0 Note Initiated On: 01/02/2021 10:39 AM Estimated Blood Loss: Estimated blood loss was minimal.
[2021-01-02 11:57] VITALS: BP 99/58
== END 2021-01-02 11:58 | disposition home or self-care (01) ==
LOC: M OPP 09:33
PROVIDERS: ATTEND Internal Medicine Gastroenterology
DX: Z12.11 Encounter for screening for malignant neoplasm of colon (principal); R19.4 Change in bowel habit; R10.13 Epigastric pain; R13.10 Dysphagia, unspecified; K62.1 Rectal polyp; D12.6 Benign neoplasm of colon, unspecified; Q43.8 Other specified congenital malformations of intestine; K64.8 Other hemorrhoids; D13.1 Benign neoplasm of stomach; D13.39 Benign neoplasm of other parts of small intestine; K29.70 Gastritis, unspecified, without bleeding; F41.9 Anxiety disorder, unspecified; F32.9 Major depressive disorder, single episode, unspecified; J44.9 Chronic obstructive pulmonary disease, unspecified; K21.9 Gastro-esophageal reflux disease without esophagitis; Z86.711 Personal history of pulmonary embolism; G47.30 Sleep apnea, unspecified; F17.200 Nicotine dependence, unspecified, uncomplicated; Z79.51 Long term (current) use of inhaled steroids; Z79.82 Long term (current) use of aspirin; Z79.899 Other long term (current) drug therapy
CPT/HCPCS: 43239; 45380; 45385; 88305; J2370; J3010

== ENCOUNTER → 2021-02-05 | Outpatient (CLI) | payer BC ==
[~2021-02-05] MED LIST changes: -LIDOCAINE 2% 100MG/5ML SDV (FOR ANES.) As Ordered ONE; -fentaNYL 100 MCG/2 ML INJECTION (J3010) As Ordered ONE; -propofoL 200 MG/20 ML VIAL As Ordered ONE
--- NOTE | 2021-02-05 09:29 | PFTRPT ---
Site: [facility], [address] [place] [address], [id number] ID: [id number] Name: YECENIA REICH Visit Date: 02/05/2021 Second ID: [id number] Referring Doctor: Drea Morris MD Reviewing Doctor: Juan Barahona MD [employer] Developer: Verónica VENTURA, TRAVIS Age: 61 : 1960 Sex: Male Race: Height: 64.00 Inches Weight: 106.00 Lbs BSA: 1.49 Order IDs: [id number] Requested Test(s): <RESP-PFT.PFT B/A> Diagnosis: J44.9 of albuterol for post bronchodilator. The results of this test appear to be valid, although the ATS standard for "end of test" was not met. Review Status: Not Reviewed Pre-Bronch Post-Bronch Pred Actual %Pred Actual %Chng SPIROMETRY FVC (L) 3.80 1.46 38 1.95 33 FEV1 (L) 2.88 0.61 21 0.81 33 FEV1/FVC (%) 76 42 54 41 FEF 25% (L/sec) 5.81 0.45 7 0.84 84 FEF 50% (L/sec) 3.82 0.26 6 0.48 83 FEF 75% (L/sec) 1.08 0.16 14 0.33 112 FEF 25-75% (L/sec) 2.43 0.24 9 0.46 92 FEF Max (L/sec) 7.92 2.43 30 2.81 15 FIVC (L) 1.38 1.96 42 FIF 50% (L/sec) 4.72 2.89 61 3.12 7 FIF Max (L/sec) 3.06 3.12 1 MVV (L/min) 120 20 16 Expiratory Time (sec) 6.67 6.76 1 Back Extrap Vol (L) 0.02 0.02 -23 Time To FEFmax (sec) 0.044 0.047 8 LUNG VOLUMES SVC (L) 3.87 2.24 57 IC (L) 2.86 1.17 40 ERV (L) 1.01 1.08 106 TGV (L) 2.92 7.61 260 RV (Pleth) (L) 1.91 6.53 341 TLC (Pleth) (L) 5.78 8.77 151 RV/TLC (Pleth) (%) 33 74 225 DIFFUSION DLCOunc (ml/min/mmHg) 25.91 7.84 30 DLCOcor (ml/min/mmHg) 25.91 7.67 29 DL/VA (ml/min/mmHg/L) 4.48 2.02 45 VA (L) 5.78 3.80 65 BHT (sec) 11.56 IVC (L) 1.63 TLC (SB) (L) 3.95 AIRWAYS RESISTANCE Raw (cmH2O/L/s) 1.45 2.22 153 Gaw (L/s/cmH2O) 1.03 0.46 44 sRaw (cmH2O*s) 4.76 18.20 382 sGaw (1/cmH2O*s) 0.20 0.06 27 BLOOD GASES Hgb (gm/dL) 15.4
== END ==
LOC: M CARPUL 08:42
PROVIDERS: ATTEND Internal Medicine Pulmonary Disease
DX: J44.9 Chronic obstructive pulmonary disease, unspecified (principal)

== ENCOUNTER → 2021-06-02 | Outpatient (CLI) | payer BC | LOC: M RAD 13:11 | PROVIDERS: ATTEND Internal Medicine Pulmonary Disease | DX: Z87.891 Personal history of nicotine dependence (principal) ==

== ENCOUNTER → 2022-02-08 | Outpatient (CLI) | payer BC | LOC: M RAD 09:03 | PROVIDERS: ATTEND Internal Medicine Gastroenterology | DX: R14.0 Abdominal distension (gaseous) (principal) ==

== ENCOUNTER → 2022-08-11 | Outpatient (CLI) | payer BC ==
[~2022-08-11] MED LIST changes: +ALBU2.5V10; -ALBU83IN
== END ==
LOC: M RAD 14:43
PROVIDERS: ATTEND Internal Medicine Critical Care Medicine
DX: Z87.891 Personal history of nicotine dependence (principal)